=== PATIENT | female | born 1950 | race Caucasian/White ===

== ENCOUNTER → 2019-02-07 | Outpatient (CLI) | payer MEDICARE, BC ==
--- NOTE | 2019-02-07 15:47 | MR ---
EXAMINATION TYPE: MR lumbar spine wo con DATE OF EXAM: 02/07/2019 COMPARISON: None HISTORY: Low Back Pain with Sciatica TECHNIQUE: Multiplanar, multisequence images of the lumbar spine were acquired. L1-L2: Normal disc appearance without desiccation. No herniation, protrusion or disc bulging. No ca nal stenosis is present. Foramina are patent bilaterally. L2-L3: Broad-based posterior disc bulge causes mild anterior mass effect on the thecal sac. No signif icant central stenosis or foraminal encroachment. L3-L4: Posterior broad-based disc bulge causes anterior mass effect on the thecal sac. There is a lef t lateral disc herniation extending towards the left neural foramina. No significant central stenosis . There is some facet arthropathy with hypertrophy ligamentum flavum. L4-L5: Facet arthropathy with hypertrophy ligamentum flavum is noted causing some posterior lateral m ass effect on the thecal sac. Circumferential posterior broad-based disc bulge contacts anterior thec al sac, lateral extension endplate disc complex results in foraminal encroachment greater on the righ t. There is moderate central canal stenosis. L5-S1: Lateral extension of endplate disc complex results in bilateral foraminal encroachment. Steel Sampler ior broad-based disc bulge causes possible contact of the proximal S1 nerve roots. Facet arthropathy is noted greater on the right which likely contacts the right S1 nerve root. Lumbar segments are intact. No paraspinal masses are identified. Conus medullaris has a normal appe arance. There is a spinal curvature. Multilevel spondylosis is present. Loss of disc height and signa l present especially at L5-S1 but also at L3-4, L2-3 compatible with disc desiccation and degenerativ e disc disease, there is multilevel spondylosis. Endplate discogenic marrow signal changes greatest a t L5-S1. Lumbar vertebral bodies show preserved height. Atheromatous changes are present within the v isualized aorta, infrarenal abdominal aorta is aneurysmal measuring approximately 3.7 cm or greater i n its visualized portion. Cortical cyst associated with the left kidney measures approximately 18 mm. IMPRESSION: Abdominal aortic aneurysm, follow-up recommended. Degenerative disc disease and facet arthropathy. Sp inal curvature.
== END | disposition home or self-care (01) ==
LOC: RADMRIMAIN 13:33
PROVIDERS: ATTEND Orthopaedic Surgery
DX: M51.36 Other intervertebral disc degeneration, lumbar region (principal); M46.96 Unspecified inflammatory spondylopathy, lumbar region
CPT/HCPCS: 72148

== ENCOUNTER → 2019-04-24 | Outpatient (CLI) | payer MEDICARE, BC ==
[2019-04-24 17:25] LABS: Chol/HDL Ratio 4.28; LDL Cholesterol,Calculated 170.2 mg/dL (0.0-131.0); VLDL Calculation 19.8 mg/dL (5.00-40.00)
== END | disposition home or self-care (01) ==
LOC: LABWHC1 08:22
PROVIDERS: ATTEND Internal Medicine Cardiovascular Disease
DX: E78.2 Mixed hyperlipidemia (principal)
CPT/HCPCS: 36415; 80061; 84450; 84460

== ENCOUNTER → 2019-08-20 | Outpatient (CLI) | payer MEDICARE, BC ==
[2019-08-20 17:30] LABS: Chol/HDL Ratio 2.94; LDL Cholesterol,Calculated 83.4 mg/dL (0.0-131.0); VLDL Calculation 21.6 mg/dL (5.00-40.00)
== END | disposition home or self-care (01) ==
LOC: LABWHC1 10:25
PROVIDERS: ATTEND Internal Medicine Cardiovascular Disease
DX: E78.2 Mixed hyperlipidemia (principal)
CPT/HCPCS: 36415; 80061; 84450; 84460

== ENCOUNTER → 2020-01-24 | Outpatient (CLI) | payer MEDICARE, BC ==
[2020-01-24 14:01] LABS: HCT 37.8 % (34.0-46.0); HGB 11.9 gm/dL (11.4-16.0); MCH 29.2 pg (25.0-35.0); MCHC 31.4 g/dL (31.0-37.0); Mean Platelet Volume 7.2; Platelet Count 310 k/uL (150-450); RBC 4.06 m/uL (3.80-5.40); RDW 13.4 % (11.5-15.5)
[2020-01-24 15:10] LABS: Potassium 6.1 mmol/L (3.5-5.1)
== END | disposition home or self-care (01) ==
LOC: LABPAT 13:07
PROVIDERS: ATTEND Internal Medicine Interventional Cardiology
DX: Z01.818 Encounter for other preprocedural examination (principal); I73.9 Peripheral vascular disease, unspecified
CPT/HCPCS: 36415; 80051; 82565; 84520; 85027

== ENCOUNTER → 2020-01-30 | Outpatient (CLI) | payer MEDICARE, BC ==
[2020-01-30 18:01] LABS: African American GFR (CKD) 75.1 (60.0-200.0); Anion Gap 9.6 mmol/L (4.00-12.00); BUN/Creat Ratio 25.56 Ratio (12.00-20.00); Calcium 9.2 mg/dL (8.7-10.3); Carbon Dioxide 22.4 mmol/L (21.6-31.8); Magnesium 1.9 mg/dL (1.5-2.4); Non-African American GFR(CKD) 64.8 (60.0-200.0); Potassium 4.5 mmol/L (3.5-5.5)
== END | disposition home or self-care (01) ==
LOC: LABWHC1 10:19
PROVIDERS: ATTEND Nurse Practitioner Adult Health
DX: I10 Essential (primary) hypertension (principal); E87.5 Hyperkalemia
CPT/HCPCS: 36415; 80048; 83735

== ENCOUNTER 2020-03-18 06:18 | Day surgery (SDC) | payer MEDICARE, BC ==
[2020-03-16 12:04] VITALS: BMI 21.4
[2020-03-18] MEDS ORDERED: SODIUM CHLORIDE 0.9% 1,000 ML in EMPTY BAG 1 BAG IV ONE (06:27)
[2020-03-18] MEDS ORDERED: ASPIRIN 325 MG TAB PO STA (06:27)
[2020-03-18] MEDS: ALPRAZolam 0.25 MG TAB PO PRN ×2 (06:45→15:12)
[2020-03-18 07:27] LABS: Albumin 3.4 g/dL (3.5-5.0); Calcium 8.9 mg/dL (8.4-10.2); Potassium 4.3 mmol/L (3.5-5.1); Total Bilirubin 0.3 mg/dL (0.2-1.3); Total Protein 5.8 g/dL (6.3-8.2)
[2020-03-18] MEDS: MIDAZOLAM 2 MG/2 ML VIAL IV ONE ×4 (07:35→09:31)
[2020-03-18] MEDS: LIDOCAINE 1% INJ 10MG/ML (20 ML MDV) SQ ONE ×2 (07:48→08:26)
[2020-03-18] MEDS ORDERED: LIDOCAINE 1% INJ 10MG/ML (20 ML MDV) SQ ONE (08:26)
[2020-03-18] MEDS: FLUMAZENIL 0.1 MG/ML 5 ML VIAL IVP ONE ×2 (09:42→09:45)
[2020-03-18] MEDS: fentaNYL (PF) 50 MCG/ML 2 ML AMP IV ONE ×2 (09:56→10:18)
[2020-03-18] MEDS ORDERED: IOPAMIDOL-250 100ML BTL INTRAARTER ONE (10:13)
[2020-03-18] MEDS ORDERED: CLOPIDOGREL 75 MG TAB PO ONE (10:13)
[2020-03-18] MEDS ORDERED: SODIUM CHLORIDE 0.9% 1,000 ML in EMPTY BAG 1 BAG IV SCH (10:30)
--- NOTE | 2020-03-18 12:14 | AN ---
ANGIOGRAPHY REPORT PERCUTANEOUS PERIPHERAL INTERVENTION: DATE OF SERVICE: 03/18/2020 PERFORMING PHYSICIAN: Danie Bueno MD. PROCEDURE PERFORMED: 1. Successful kissing stents of the right and left common iliac arteries using 8 x 59 mm balloon expandable stent with an excellent angiographic results. 2. Intravascular ultrasound of the aorta and left common iliac artery as well as left external iliac artery as well as left common femoral artery. 3. Balloon angioplasty of the bilateral common iliac arteries as well as left external iliac artery. 4. An angiogram of the bilateral common and external iliac arteries as well as common femoral arteries. INDICATION: This is a 69-year-old female patient who was experiencing left leg intermittent claudication and underwent an angiogram at [facility] and that revealed occluded left common iliac artery. She was brought today to undergo an intervention. APPROACH: Right and left common femoral artery. COMPLICATION: None. LEVEL OF SEDATION: Moderate with sedation length of 151 minutes. PROCEDURE DESCRIPTION: After obtaining an informed consent, the patient was brought to the cardiac laboratory mechanical technician. The right and left groin were prepped and draped in the usual sterile fashion. Local analgesia was achieved by injecting 2% lidocaine subcutaneously into the left and right groin. Initially, I accessed the left common femoral artery using micropuncture technique under ultrasound guidance, the micropuncture wire passed easily, then I placed a 6- Cypriot 23 cm Brite Tip sheath at the level of the left common femoral artery. At that point, anticoagulation was initiated using heparin and the patient was given a weight-based heparin. Please note that continuous ACT monitoring was performed throughout the procedure and the patient was given additional 2000 of heparin at the end of the procedure. 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 I attempted using the [place] device to reenter the true lumen and that was also unsuccessful. Because of that, I decided to access the right common femoral artery. The right common femoral artery was cannulated using micropuncture technique and a micropuncture wire passed easily. Then I did a place initially a 5-Cypriot sheath and then a 6-Cypriot 23 cm Brite Tip sheath at the right common femoral arteries. I did at that point, an angiogram where I was able the takeoff of the occluded left common iliac artery from the aorta. 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 The wire was advanced all the way to the left SFA. I attempted snaring the wire from the sheath in the left groin, but that was unsuccessful and at that point, I anticipated that I was in the subintimal space. I confirmed that using intravascular ultrasound, IVUS, which proved that I was in the false lumen with 0.014 wire which entered the true lumen at the level of the common femoral artery on the left side. Because of that and because of multiple attempts failed to snare the wire, I decided to just try to wire the left common iliac artery in ipsilateral retrograde fashion and with that I was able to advance the wire all the way to the aorta. I did exchange my 0.035 stiff Glidewire into 0.014 wire just to perform intravascular ultrasound and prove that I was in the true lumen of the aorta and not in the false lumen. That was performed and confirmed that I was in the true lumen of the aorta. Subsequently, I did exchange my 0.014 wire again into 0.035 wire. This time using 0.035 CXI catheter. So I placed a stiff Glidewire with was a Super core wire at the left common iliac artery and I placed an 0.035 stiff Glidewire at the right common iliac artery. At that point, balloon angioplasty was performed using 6 x 40 mm balloon of the left common and left external iliac artery. Then after that, I deployed two stents in the both common iliac arteries. The two stents were placed in a kissing technique under fluoroscopic guidance and under contrast injection using DSA. On the left side, I placed 8 x 59 mm iCAST covered stent and on the right, I placed 8 x 59 mm just regular balloon expandable stents. Both stents were deployed under 10 atmospheres. The following angiogram showed excellent angiographic results at the level of the right and left common iliac arteries. At the level of the left external iliac artery, there was a dissection. I decided to balloon that. I did use 8 x 18 mm balloon which was inflated under 6 atmospheres for one minute. The following angiogram showed great results at the level of the left external iliac artery, but there was a dissection involving the distal BATTALION FIRE CHIEF in the left common iliac artery and I decided to cover that with a stent. So I deployed 8 x 27 mm another balloon expandable stent where the stent was positioned under fluoroscopy guidance and deployed under fluoroscopic guidance. I did balloon the overlap area between the 2 stents. The following angiogram showed great angiographic results and the procedure was completed without any complication. After that, I did place an 11 cm 7-Cypriot sheath on the left side and 11 cm 6-Cypriot sheath on the right side. The procedure at that point was completed without any complication. By the end, I was able to achieve a Doppler signal aid at the left pedal artery. The sheath of course was occupying the lumen of the left common femoral artery. POSTPROCEDURE MANAGEMENT: 1. Standard groin care. 2. Pull the sheath on the ACT below 180. 3. Dual anti-platelet therapy. 4. Risk factor modifications. 5. Follow up with the patient. MMODL / IJN: [id number] /
[2020-03-18 12:28] VITALS: RESP 18
[2020-03-18] MEDS ORDERED: ATROPINE SULFATE 0.1 MG/ML 10ML SYRINGE ONE (12:39)
[2020-03-18] MEDS ORDERED: HYDROmorphone 1 MG/ML 1 ML SYRINGE IVP PRN (16:05)
[2020-03-18] MEDS: HYDROmorphone 0.5 MG/0.5 ML SYRINGE IVP PRN (17:56)
--- NOTE | 2020-03-19 07:01 | DS ---
DISCHARGE SUMMARY ADMISSION DATE: March 18, 2020 DISCHARGE DATE: March 19, 2020 BRIEF HISTORY: This is a pleasant 69-year-old female patient who underwent yesterday successful recanalizing chronically occluded left iliac artery. The procedure was performed from both groins, right and left groins. Both groins are soft and nontender and without any bruises. The patient is going to be discharged home on dual anti-platelet therapy and she will follow up with Dr. Espino in the office as an outpatient. MMODL / IJN: [id number] /
[2020-03-19 07:28] LABS: Basophils % (A) 0 %; Eosinophils # (A) 0.2 k/uL (0-0.7); Eosinophils % (A) 2 %; HCT 30.7 % (34.0-46.0); Lymphocytes # (A) 2.4 k/uL (1.0-4.8); Lymphocytes % (A) 29 %; MCH 29.2 pg (25.0-35.0); MCHC 32.3 g/dL (31.0-37.0); MCV 90.4 fL (80.0-100.0); Mean Platelet Volume 7.2; Monocytes # (A) 0.7 k/uL (0-1.0); Monocytes % (A) 9 %; Neutrophils # (A) 4.7 k/uL (1.3-7.7); Neutrophils % (A) 58 %; Platelet Count 298 k/uL (150-450); RDW 13.9 % (11.5-15.5); WBC 8.2 k/uL (3.8-10.6)
[2020-03-19 07:41] LABS: HGB 9.9 gm/dL (11.4-16.0)
[2020-03-19 07:44] LABS: Calcium 8.4 mg/dL (8.4-10.2); Potassium 4.3 mmol/L (3.5-5.1)
[2020-03-19] MEDS ORDERED: amLODIPine 10 MG TAB PO SCH (09:00)
[2020-03-19] MEDS ORDERED: CLOPIDOGREL 75 MG TAB PO SCH (09:00)
[2020-03-19] MEDS ORDERED: ASPIRIN 81 MG PO SCH (09:00)
[2020-03-19] MEDS ORDERED: ATORVASTATIN 20 MG TAB PO SCH (09:00)
[2020-03-19] MEDS: HYDROmorphone 0.5 MG/0.5 ML SYRINGE IVP PRN (09:15)
--- NOTE | 2020-03-19 09:26 | IR ---
EXAMINATION TYPE: IR stent intravas non coronary DATE OF EXAM: 03/18/2020 CLINICAL HISTORY: Left iliac artery occlusion. TECHNIQUE: Fluoroscopy. COMPARISON: None. FINDINGS: Fluoroscopic guidance was provided during revascularization with insertion of iliac artery stent procedure performed by Dr. Bueno. A total of 48.3 minutes of fluoroscopic time was utilized du ring the procedure and 21 cine runs are acquired. Please refer to procedure note for further details as I was not present nor performed procedure. IMPRESSION: As Above.
[2020-03-19 10:34] VITALS: BP 136/74; PULSE 85; TEMP 98.3
== END 2020-03-19 13:10 | disposition home or self-care (01) ==
LOC: CATHCVL 06:18 → 3SCARD 10:46 → 3NCARDOBS 20:35 → 3SCARD 20:35 → CATHCVL 03-19 13:10
PROVIDERS: ATTEND Internal Medicine Interventional Cardiology
DX: I70.212 Atherosclerosis of native arteries of extremities with intermittent claudication, left leg (principal); I70.92 Chronic total occlusion of artery of the extremities; I10 Essential (primary) hypertension; E78.2 Mixed hyperlipidemia; Z82.49 Family history of ischemic heart disease and other diseases of the circulatory system; Z72.0 Tobacco use; I71.4 Abdominal aortic aneurysm, without rupture; Z79.82 Long term (current) use of aspirin; Z79.899 Other long term (current) drug therapy
CPT/HCPCS: 37221; 37222; 37252; 37253; 50433; 80053; 80048; 85025; C1773; C1769 ×7; C1894 ×3; C1874; C1725; C1753 ×2; C1876; J2250; J2001; J3010; J1644; J1170; Q9966

== ENCOUNTER → 2021-03-10 | Outpatient (CLI) | payer MEDICARE, BC ==
[2021-03-10 18:24] LABS: Chol/HDL Ratio 2.74; LDL Cholesterol,Calculated 74.2 mg/dL (0.0-131.0); VLDL Calculation 19.8 mg/dL (5.00-40.00)
== END | disposition home or self-care (01) ==
LOC: LABWHC1 09:10
PROVIDERS: ATTEND Internal Medicine Cardiovascular Disease
DX: E78.2 Mixed hyperlipidemia (principal)
CPT/HCPCS: 36415; 80061; 84450; 84460

== ENCOUNTER 2021-03-17 17:26 | Emergency (ER) | payer MEDICARE, BC ==
[2021-03-17 18:18] VITALS: BP 150/76; PULSE 70; RESP 18
--- NOTE | 2021-03-17 19:17 | ED ---
Upper Extremity HPI - General Chief Complaint: Extremity Injury, Upper Stated Complaint: hand injury Time Seen by Provider: 03/17/21 19:06 Source: patient, RN notes reviewed Mode of arrival: ambulatory Limitations: no limitations - History of Present Illness Initial Comments: Patient is a 70-year-old female presents to emergency room complaining of right third metacarpophalangeal joint pain. She notes she injured it while cleaning the pool filter. She notes that she has full range of motion that it is just tender and bruised. She denied any other issues or complaints at this time. She was well-appearing 70-year-old female in no apparent distress or pain. She denied any chest pain first breath headache nausea vomiting diarrhea constipation fever fatigue chills weakness numbness tingling in her right middle finger. - Related Data Home Medications Medication Instructions Recorded Confirmed Aspirin [Adult Low Dose Aspirin EC] 81 mg PO QAM 01/30/20 03/18/20 Simvastatin 40 mg PO DAILY 01/30/20 03/18/20 amLODIPine BESYLATE 10 mg PO DAILY 01/30/20 03/18/20 Previous Rx's Medication Instructions Recorded Clopidogrel [Plavix] 75 mg PO DAILY #90 tab 03/19/20 Allergies Allergy/AdvReac Type Severity Reaction Status Date / Time No Known Allergies Allergy Verified 03/17/21 18:18 Review of Systems ROS Statement: Those systems with pertinent positive or pertinent negative responses have been documented in the HPI. ROS Other: All systems not noted in ROS Statement are negative. Past Medical History Past Medical History: Chest Pain / Angina, Hyperlipidemia, Hypertension, Osteoarthritis (OA), Vascular Disorder Additional Past Medical History / Comment(s): has difficulty walking,aortic aneurysm,SOB,yesika leg swelling from knee down,ruptured disk,hemorrhage rt eye after cataract surgery History of Any Multi-Drug Resistant Organisms: None Reported Additional Past Surgical History / Comment(s): Aortogram,yesika cataracts,laser surgery rt eye hemorrhage post cataract surg. Past Anesthesia/Blood Transfusion Reactions: No Reported Reaction Past Psychological History: No Psychological Hx Reported Smoking Status: Former smoker Past Alcohol Use History: None Reported Past Drug Use History: None Reported - Past Family History Mother Family Medical History: No Reported History General Exam Limitations: no limitations General appearance: alert, in no apparent distress Head exam: Present: atraumatic, normocephalic, normal inspection Eye exam: Present: normal appearance, PERRL, EOMI. Absent: scleral icterus, conjunctival injection, periorbital swelling Neck exam: Present: normal inspection Respiratory exam: Present: normal lung sounds bilaterally. Absent: respiratory distress, wheezes, rales, rhonchi, stridor Cardiovascular Exam: Present: regular rate, normal rhythm, normal heart sounds. Absent: systolic murmur, diastolic murmur, rubs, gallop, clicks Extremities exam: Present: normal inspection, full ROM, normal capillary refill, other (Right third MCP ecchymosis and mild tenderness to palpation.). Absent: tenderness, pedal edema, joint swelling, calf tenderness Neurological exam: Present: alert, oriented X3 Psychiatric exam: Present: normal affect, normal mood Skin exam: Present: warm, dry, intact, normal color. Absent: rash Course Vital Signs 03/17/21 18:16 Pulse Rate 70 Respiratory 18 Rate Blood Pressure 150/76 O2 Sat by Pulse 99 Oximetry Medical Decision Making - Medical Decision Making 70-year-old female complaining of right middle finger first knuckle pain. X-ray of the right hand ordered. No acute fractures dislocations noted on imaging. Patient will be referred to orthopedics as needed. Case discussed with Dr. Gómez, patient discharge home. - Radiology Data Radiology results: report reviewed, image reviewed Interpreted by me: Image was reviewed by myself and Dr. Gómez and there appeared to be no fractures or dislocations noted. Disposition Clinical Impression: Finger sprain Disposition: HOME SELF-CARE Condition: Stable Instructions (If sedation given, give patient instructions): Hand Sprain (ED) Additional Instructions: Please return to the Emergency Department if symptoms worsen or any other concerns. Follow-up with primary care 1-2 days. Follow-up with orthopedics as needed. Rest ice compress elevate. Take Tylenol Motrin as needed for pain. Is patient prescribed a controlled substance at d/c from ED?: No Referrals: None,Stated [Primary Care Provider] - 1-2 days Solo Mackey DO [Doctor of Osteopathic Medicine] - 1-2 days Time of Disposition: 19:17
--- NOTE | 2021-03-17 20:07 | XR ---
EXAMINATION TYPE: XR hand complete RT DATE OF EXAM: 03/17/2021 COMPARISON: NONE HISTORY: . Injury to right hand . TECHNIQUE: AP, oblique, and lateral views of the right hand obtained. FINDINGS: No acute fracture. No dislocation. There are moderate to marked degenerative changes at the first carpometacarpal joint. Normal mineralization. No significant soft tissue swelling. IMPRESSION: No acute fracture or dislocation.
== END 2021-03-17 19:24 | disposition home or self-care (01) ==
LOC: EC 17:26
DX: S63.652A Sprain of metacarpophalangeal joint of right middle finger, initial encounter (principal); I10 Essential (primary) hypertension; I20.9 Angina pectoris, unspecified; E78.5 Hyperlipidemia, unspecified; M19.90 Unspecified osteoarthritis, unspecified site; Z79.899 Other long term (current) drug therapy; Z79.82 Long term (current) use of aspirin; Z87.891 Personal history of nicotine dependence; X50.0XXA Overexertion from strenuous movement or load, initial encounter; Y93.E5 Activity, floor mopping and cleaning
CPT/HCPCS: 99283

== ENCOUNTER 2021-05-20 18:22 | Emergency (ER) | payer MEDICARE, BC ==
[2021-05-20 18:29] VITALS: TEMP 98.5
--- NOTE | 2021-05-20 18:52 | XR ---
EXAMINATION TYPE: XR chest 1V portable DATE OF EXAM: 05/20/2021 HISTORY: Shortness of breath. COMPARISON: None. TECHNIQUE: Single view of the chest is submitted. FINDINGS: Demonstrated are scattered senescent parenchymal change. There is no evidence for focal infiltrate. The heart is stable. Hilar and mediastinal structures are within normal limits. Degenerative changes are seen of the dorsal spine. IMPRESSION: 1. Chronic changes without evidence for acute pulmonary disease.
--- NOTE | 2021-05-20 18:59 | ED ---
General Adult HPI - General Chief complaint: Shortness of Breath Stated complaint: Chest Pain/AUGUSTINE/Cough Time Seen by Provider: 05/20/21 18:32 Source: patient Mode of arrival: ambulatory Limitations: no limitations - History of Present Illness Initial comments: Dictation was produced using [employer] dictation software. please excuse any grammatical, word or spelling errors. Chief Complaint: 71-year-old female past medical history dyslipidemia hypertension peripheral vascular disease presents to the emergency department for additional dyspnea and chest pain History of Present Illness:. 71-year-old female was presents to the emergency department for multiple complaints. Patient states she has exertional dyspnea, pleuritic chest pain, weakness and body aches. Patient has been having symptoms for 2 weeks. She states she was tested twice for covid over the last 2 weeks and had negative result twice. Patient states that she has reported chest pain to the anterior chest. She states a sharp and worse with deep inspiration. She feels it more when she coughs. Denies any fever. No constitutional symptoms. No nausea vomiting or diarrhea. Patient not sure if she has history of DVT or PE. She does have history of arterial stents in her lower extremities. She denies any lower trauma symptoms currently. The ROS documented in this emergency department record has been reviewed and confirmed by me. Those systems with pertinent positive or negative responses have been documented in the HPI. All other systems are other negative and/or noncontributory. PHYSICAL EXAM: General Impression: Alert and oriented x3, not in acute distress HEENT: Normocephalic atraumatic, extra-ocular movements intact, pupils equal and reactive to light bilaterally, mucous membranes moist. Cardiovascular: Heart regular rate and rhythm Chest: Able to complete full sentences, no retractions, no tachypnea, clear to auscultation bilaterally Abdomen: abdomen soft, non-tender, non-distended, no organomegaly Musculoskeletal: Pulses present and equal in all extremities, no peripheral edema Motor: no focal deficits noted Neurological: CN II-XII grossly intact, no focal motor or sensory deficits noted Skin: Intact with no visualized rashes Psych: Normal affect and mood ED course: 71-year-old female presents to the emergency department for dyspnea and/or chest pain. As upon arrival shows 97% room air, worse vital signs within acceptable limits. To evaluation obtained per it CBC unremarkable. Metabolic panel is negative. D-dimer is 1.55. Metabolic panel shows findings within acceptable limits. Troponin is negative. Brain natruretic peptide is normal. Negative for coronavirus. Chest x-ray shows no acute processes. CT angios obtained for elevated d-dimer, rule out pulmonary embolism. No PEs noted on CT angios the chest. Patient observed in the emergency department for 2 hours. Physician options were discussed with patient. Patient is agreeable for discharge. She does not have a primary care physician. Patient given referral to outpatient PCP. Patient also given referral to tool die maker. Chin having persistent symptoms believe she would benefit from a trial of steroids and antibiotics. Given a dose of ceftriaxone and Decadron in the emergency department. Patient given prescription for Zithromax pack and Medrol Dosepak. EKG interpretation: Ventricular rate 86, normal sinus rhythm, DE interval 118, QRS 70, QTc 440. No DE prolongation, no QTC prolongation, no ST or T-wave changes noted. Overall, this EKG is unremarkable - Related Data Home Medications Medication Instructions Recorded Confirmed Aspirin [Adult Low Dose Aspirin EC] 81 mg PO QAM 01/30/20 05/20/21 Simvastatin 40 mg PO DAILY 01/30/20 05/20/21 amLODIPine BESYLATE 10 mg PO DAILY 01/30/20 05/20/21 Previous Rx's Medication Instructions Recorded Clopidogrel [Plavix] 75 mg PO DAILY #90 tab 03/19/20 Azithromycin [Zithromax Z-pack] 0 mg PO DIRECTED #6 tab 05/20/21 methylPREDNISolone [Medrol Dose 4 mg PO DIRECTED #1 packet 05/20/21 Pack] Allergies Allergy/AdvReac Type Severity Reaction Status Date / Time No Known Allergies Allergy Verified 05/20/21 19:57 Review of Systems ROS Statement: Those systems with pertinent positive or pertinent negative responses have been documented in the HPI. ROS Other: All systems not noted in ROS Statement are negative. Past Medical History Past Medical History: Chest Pain / Angina, Hyperlipidemia, Hypertension, Osteoarthritis (OA), Vascular Disorder Additional Past Medical History / Comment(s): has difficulty walking,aortic aneurysm,SOB,yesika leg swelling from knee down,ruptured disk,hemorrhage rt eye after cataract surgery History of Any Multi-Drug Resistant Organisms: None Reported Additional Past Surgical History / Comment(s): Aortogram,yesika cataracts,laser surgery rt eye hemorrhage post cataract surg. Past Anesthesia/Blood Transfusion Reactions: No Reported Reaction Past Psychological History: No Psychological Hx Reported Smoking Status: Former smoker Past Alcohol Use History: None Reported Past Drug Use History: None Reported - Past Family History Mother Family Medical History: No Reported History General Exam Limitations: no limitations Course Vital Signs 05/20/21 05/20/21 05/20/21 18:25 18:43 19:03 Temperature 98.5 F Pulse Rate 99 90 82 Respiratory 20 24 24 Rate Blood Pressure 151/65 144/78 O2 Sat by Pulse 93 L 97 97 Oximetry 05/20/21 19:34 Temperature Pulse Rate 74 Respiratory 22 Rate Blood Pressure 117/84 O2 Sat by Pulse 98 Oximetry Medical Decision Making - Lab Data Result diagrams: 05/20/21 19:03 05/20/21 19:03 Lab Results 05/20/21 05/20/21 05/20/21 Range/Units 19:03 19:03 19:03 WBC 8.5 (3.8-10.6) k/uL RBC 3.96 (3.80-5.40) m/uL Hgb 10.5 L (11.4-16.0) gm/dL Hct 33.1 L (34.0-46.0) % MCV 83.8 (80.0-100.0) fL MCH 26.7 (25.0-35.0) pg MCHC 31.8 (31.0-37.0) g/dL RDW 14.9 (11.5-15.5) % Plt Count 603 H (150-450) k/uL MPV 7.2 Neutrophils % 78 % Lymphocytes % 12 % Monocytes % 5 % Eosinophils % 4 % Basophils % 0 % Neutrophils # 6.6 (1.3-7.7) k/uL Lymphocytes # 1.0 (1.0-4.8) k/uL Monocytes # 0.4 (0-1.0) k/uL Eosinophils # 0.4 (0-0.7) k/uL Basophils # 0.0 (0-0.2) k/uL PT 10.0 (9.0-12.0) sec INR 0.9 (<1.2) APTT 19.9 L (22.0-30.0) sec D-Dimer 1.55 H (<0.60) mg/L FEU Sodium 135 L (137-145) mmol/L Potassium 3.3 L (3.5-5.1) mmol/L Chloride 103 (98-107) mmol/L Carbon Dioxide 22 (22-30) mmol/L Anion Gap 10 mmol/L BUN 15 (7-17) mg/dL Creatinine 0.78 (0.52-1.04) mg/dL Est GFR (CKD-EPI)AfAm 88 (>60 ml/min/1.73 sqM) Est GFR (CKD-EPI)NonAf 77 (>60 ml/min/1.73 sqM) Glucose 128 H (74-99) mg/dL Calcium 8.8 (8.4-10.2) mg/dL Magnesium 2.0 (1.6-2.3) mg/dL Troponin I (0.000-0.034) ng/mL NT-Pro-B Natriuret Pep pg/mL Coronavirus (PCR) (Not Detectd) 05/20/21 05/20/21 05/20/21 Range/Units 19:03 19:03 19:03 WBC (3.8-10.6) k/uL RBC (3.80-5.40) m/uL Hgb (11.4-16.0) gm/dL Hct (34.0-46.0) % MCV (80.0-100.0) fL MCH (25.0-35.0) pg MCHC (31.0-37.0) g/dL RDW (11.5-15.5) % Plt Count (150-450) k/uL MPV Neutrophils % % Lymphocytes % % Monocytes % % Eosinophils % % Basophils % % Neutrophils # (1.3-7.7) k/uL Lymphocytes # (1.0-4.8) k/uL Monocytes # (0-1.0) k/uL Eosinophils # (0-0.7) k/uL Basophils # (0-0.2) k/uL PT (9.0-12.0) sec INR (<1.2) APTT (22.0-30.0) sec D-Dimer (<0.60) mg/L FEU Sodium (137-145) mmol/L Potassium (3.5-5.1) mmol/L Chloride (98-107) mmol/L Carbon Dioxide (22-30) mmol/L Anion Gap mmol/L BUN (7-17) mg/dL Creatinine (0.52-1.04) mg/dL Est GFR (CKD-EPI)AfAm (>60 ml/min/1.73 sqM) Est GFR (CKD-EPI)NonAf (>60 ml/min/1.73 sqM) Glucose (74-99) mg/dL Calcium (8.4-10.2) mg/dL Magnesium (1.6-2.3) mg/dL Troponin I <0.012 (0.000-0.034) ng/mL NT-Pro-B Natriuret Pep 433 pg/mL Coronavirus (PCR) Not Detected (Not Detectd) Disposition Clinical Impression: Dyspnea Disposition: HOME SELF-CARE Condition: Good Instructions (If sedation given, give patient instructions): Dyspnea (ED) Prescriptions: methylPREDNISolone [Medrol Dose Pack] 4 mg PO DIRECTED #1 packet Azithromycin [Zithromax Z-pack] 0 mg PO DIRECTED #6 tab Is patient prescribed a controlled substance at d/c from ED?: No Referrals: Millicent Styles MD [STAFF PHYSICIAN] - 1-2 days Dennis Muro MD [REFERRING] - 1-2 days Aguila Loera MD [STAFF PHYSICIAN] - 1-2 days Sweta Díaz MD [STAFF PHYSICIAN] - 1-2 days
[2021-05-20 19:13] LABS: Basophils % (A) 0 %; Eosinophils # (A) 0.4 k/uL (0-0.7); Eosinophils % (A) 4 %; HCT 33.1 % (34.0-46.0); HGB 10.5 gm/dL (11.4-16.0); Lymphocytes % (A) 12 %; MCH 26.7 pg (25.0-35.0); MCHC 31.8 g/dL (31.0-37.0); MCV 83.8 fL (80.0-100.0); Mean Platelet Volume 7.2; Monocytes # (A) 0.4 k/uL (0-1.0); Monocytes % (A) 5 %; Neutrophils # (A) 6.6 k/uL (1.3-7.7); Neutrophils % (A) 78 %; Platelet Count 603 k/uL (150-450); RBC 3.96 m/uL (3.80-5.40); RDW 14.9 % (11.5-15.5); WBC 8.5 k/uL (3.8-10.6)
[2021-05-20 19:24] LABS: Calcium 8.8 mg/dL (8.4-10.2); Potassium 3.3 mmol/L (3.5-5.1)
[2021-05-20 19:35] VITALS: BP 117/84; PULSE 74; RESP 22
[2021-05-20 19:36] LABS: INR 0.9 (<1.2)
[2021-05-20 19:39] LABS: Partial Thromboplastin Time 19.9 sec (22.0-30.0)
--- NOTE | 2021-05-20 20:19 | CT ---
EXAMINATION TYPE: CT angio chest DATE OF EXAM: 05/20/2021 COMPARISON: None HISTORY: Cough, shortness of breath, elevated d-dimer. CT DLP: 198.1 mGycm CONTRAST: CT chest with contrast and 3D reconstruction with MIP imaging is performed with IV Contrast, patient injected with 100 mL of Isovue 370. Contrast-enhanced CT of the chest was performed through the course of the pulmonary arteries with brent g and mediastinal window settings submitted. 3D reconstruction with MIP imaging was also performed. PULMONARY ARTERIES: The pulmonary arteries and their major tributaries are patent. I do not see azra dence for sizable filling defect to suggest pulmonary embolic process. LUNGS: Patchy density right lower lobe may reflect infiltrate or atelectasis. No evidence for atelect asis. No pulmonary nodule or mass is detected. No pleural effusion. MEDIASTINUM: Thoracic aorta is of normal caliber. The heart is not enlarged. No evidence for medias tinal mass. No mediastinal lymph nodes greater than 1cm. Small cystic nodule left thyroid lobe measu ring less than 1 cm. HILAR STRUCTURES: No evidence for mass. No hilar lymph nodes greater than 1 cm. UPPER ABDOMEN: No significant abnormality is seen. IMPRESSION: 1. No evidence for Pulmonary embolism at this time.
[2021-05-20] MEDS ORDERED: DEXAMETHASONE SOD PHOSPHATE 10 MG/ML 1 ML VIAL IV STA (20:30)
[2021-05-20] MEDS ORDERED: cefTRIAXone IN SWFI 1,000 MG/10 ML SYRINGE IVP STA (20:30)
== END 2021-05-20 21:05 | disposition home or self-care (01) ==
LOC: EC 18:22
DX: R07.81 Pleurodynia (principal); R06.02 Shortness of breath; R05 Cough; R53.1 Weakness; E78.5 Hyperlipidemia, unspecified; I10 Essential (primary) hypertension; M19.90 Unspecified osteoarthritis, unspecified site; Z79.899 Other long term (current) drug therapy; Z79.82 Long term (current) use of aspirin; Z87.891 Personal history of nicotine dependence; Z20.822 Contact with and (suspected) exposure to COVID-19
CPT/HCPCS: 36415; 93005; 85379; 83880; 80048; 83735; 84484; 85025; 85610; 85730; 87635; 71045; 71275; 99285; 96374; 96375; J1100; J0696; Q9967

== ENCOUNTER 2022-03-14 12:56 | Inpatient (IN) | payer MEDICARE, BC ==
--- NOTE | 2022-03-14 15:23 | ED ---
General Adult HPI - General Chief complaint: Recheck/Abnormal Lab/Rx Stated complaint: blood transfusion Time Seen by Provider: 03/14/22 15:05 Source: patient, RN notes reviewed, old records reviewed Mode of arrival: ambulatory - History of Present Illness Initial comments: This is a 71-year-old female presents emergency Department because her hemoglobin is low. Patient states she was seen in Dr. Espino for a blockage in her heart and she is supposed to get a catheterization on Monday. Patient states she's on Plavix and aspirin at home. Patient states Dr. Greer did some bl ood work today and her hemoglobin was 7 so he sent her in to be evaluated. Patient states lately she's been somewhat short of breath noticed more swelling in her legs and has been fatigued. Patient denies any fever chills. Patient denies any history of anemia patient denies any liver problems patient denies any kidney dysfunction. - Related Data Home Medications Medication Instructions Recorded Confirmed Aspirin [Adult Low Dose Aspirin EC] 81 mg PO DAILY 01/30/20 03/14/22 Simvastatin 40 mg PO HS 01/30/20 03/14/22 amLODIPine BESYLATE 10 mg PO DAILY 01/30/20 03/14/22 Isosorbide Mononitrate ER [Imdur] 30 mg PO DAILY 03/14/22 03/14/22 Metoprolol Succinate (ER) [Toprol 50 mg PO DAILY 03/14/22 03/14/22 Xl] Previous Rx's Medication Instructions Recorded Clopidogrel [Plavix] 75 mg PO DAILY #90 tab 03/19/20 Allergies Allergy/AdvReac Type Severity Reaction Status Date / Time No Known Allergies Allergy Verified 03/14/22 16:59 Review of Systems ROS Statement: Those systems with pertinent positive or pertinent negative responses have been documented in the HPI. ROS Other: All systems not noted in ROS Statement are negative. Past Medical History Past Medical History: Chest Pain / Angina, Hyperlipidemia, Hypertension, Osteoarthritis (OA), Vascular Disorder Additional Past Medical History / Comment(s): has difficulty walking,aortic aneu rysm,SOB,yesika leg swelling from knee down,ruptured disk,hemorrhage rt eye after cataract surgery History of Any Multi-Drug Resistant Organisms: None Reported Additional Past Surgical History / Comment(s): Aortogram,yesika cataracts,laser surgery rt eye hemorrhage post cataract surg. Past Anesthesia/Blood Transfusion Reactions: No Reported Reaction Past Psychological History: No Psychological Hx Reported Smoking Status: Former smoker Past Alcohol Use History: None Reported Past Drug Use History: None Reported - Past Family History Mother Family Medical History: No Reported History General Exam - General Exam Comments Initial Comments: GENERAL: Patient is well-developed and well-nourished. Patient is nontoxic and well- hydrated and is in no acute distress. ENT: Neck is soft and supple. No significant lymphadenopathy is noted. Oropharynx is clear. Moist mucous membranes. Neck has full range of motion without eliciting any pain. EYES: The sclera were anicteric and conjunctiva were pink and moist. Extraocular movements were intact and pupils were equal round and reactive to light. Eyel ids were unremarkable. PULMONARY: Unlabored respirations. Good breath sounds bilaterally. No audible rales rhonchi or wheezing was noted. CARDIOVASCULAR: There is a regular rate and rhythm without any murmurs gallops or rubs. ABDOMEN: Soft and nontender with normal bowel sounds. SKIN: Slightly pale NEUROLOGIC: Patient is alert and oriented x3. Cranial nerves II through XII are grossly i ntact. Motor and sensory are also intact. Normal speech, volume and content. Symmetrical smile. MUSCULOSKELETAL: Normal extremities with adequate strength and full range of motion. Bilateral edema LYMPHATICS: No significant lymphadenopathy is noted PSYCHIATRIC: Normal psychiatric evaluation. Course Vital Signs 03/14/22 03/14/22 13:03 16:58 Temperature 98.0 F Pulse Rate 85 83 Respiratory 18 16 Rate Blood Pressure 160/87 158/87 O2 Sat by Pulse 96 96 Oximetry Medical Decision Making - Medical Decision Making EKG shows sinus rhythm at 74 bpm SC interval 149 QRSs 80 QT interval 09/27/1969 QTC is 405. Patient's EKG shows no ST segment elevation or depression. Dr. Espino wanted the patient admitted and evaluated for the anemia so that he could carry out a cardiac catheterization in the near future. I would sound physician's and he agreed to admit the patient admitted the patient wrote admitting orders - Lab Data Result diagrams: 03/14/22 15:25 03/14/22 15:25 Lab Results 03/14/22 03/14/22 03/14/22 Range/Units 15:25 15:25 15:25 WBC 6.5 (3.8-10.6) k/uL RBC 3.20 L (3.80-5.40) m/uL Hgb 7.9 L (11.4-16.0) gm/dL Hct 25.9 L (34.0-46.0) % MCV 80.9 (80.0-100.0) fL MCH 24.6 L (25.0-35.0) pg MCHC 30.4 L (31.0-37.0) g/dL RDW 19.2 H (11.5-15.5) % Plt Count 560 H (150-450) k/uL MPV 7.0 Neutrophils % 55 % Lymphocytes % 28 % Monocytes % 7 % Eosinophils % 8 % Basophils % 1 % Neutrophils # 3.5 (1.3-7.7) k/uL Lymphocytes # 1.8 (1.0-4.8) k/uL Monocytes # 0.4 (0-1.0) k/uL Eosinophils # 0.5 (0-0.7) k/uL Basophils # 0.0 (0-0.2) k/uL Hypochromasia Marked Anisocytosis Slight Microcytosis Slight PT 10.0 (9.0-12.0) sec INR 0.9 (<1.2) APTT 21.3 L (22.0-30.0) sec Sodium 135 L (137-145) mmol/L Potassium 4.1 (3.5-5.1) mmol/L Chloride 106 (98-107) mmol/L Carbon Dioxide 21 L (22-30) mmol/L Anion Gap 8 mmol/L BUN 9 (7-17) mg/dL Creatinine 1.04 (0.52-1.04) mg/dL Est GFR (CKD-EPI)AfAm 62 (>60 ml/min/1.73 sqM) Est GFR (CKD-EPI)NonAf 54 (>60 ml/min/1.73 sqM) Glucose 97 (74-99) mg/dL Calcium 8.5 (8.4-10.2) mg/dL Magnesium 1.9 (1.6-2.3) mg/dL Total Bilirubin 0.2 (0.2-1.3) mg/dL AST 37 H (14-36) U/L ALT 20 (4-34) U/L Alkaline Phosphatase 86 (38-126) U/L Troponin I (0.000-0.034) ng/mL Total Protein 5.2 L (6.3-8.2) g/dL Albumin 2.8 L (3.5-5.0) g/dL Stool Occult Blood (Negative) Blood Type Blood Type Confirm Blood Type Recheck Bld Type Recheck Status Antibody Screen Spec Expiration Date 03/14/22 03/14/22 03/14/22 Range/Units 15:25 15:25 15:25 WBC (3.8-10.6) k/uL RBC (3.80-5.40) m/uL Hgb (11.4-16.0) gm/dL Hct (34.0-46.0) % MCV (80.0-100.0) fL MCH (25.0-35.0) pg MCHC (31.0-37.0) g/dL RDW (11.5-15.5) % Plt Count (150-450) k/uL MPV Neutrophils % % Lymphocytes % % Monocytes % % Eosinophils % % Basophils % % Neutrophils # (1.3-7.7) k/uL Lymphocytes # (1.0-4.8) k/uL Monocytes # (0-1.0) k/uL Eosinophils # (0-0.7) k/uL Basophils # (0-0.2) k/uL Hypochromasia Anisocytosis Microcytosis PT (9.0-12.0) sec INR (<1.2) APTT (22.0-30.0) sec Sodium (137-145) mmol/L Potassium (3.5-5.1) mmol/L Chloride (98-107) mmol/L Carbon Dioxide (22-30) mmol/L Anion Gap mmol/L BUN (7-17) mg/dL Creatinine (0.52-1.04) mg/dL Est GFR (CKD-EPI)AfAm (>60 ml/min/1.73 sqM) Est GFR (CKD-EPI)NonAf (>60 ml/min/1.73 sqM) Glucose (74-99) mg/dL Calcium (8.4-10.2) mg/dL Magnesium (1.6-2.3) mg/dL Total Bilirubin (0.2-1.3) mg/dL AST (14-36) U/L ALT (4-34) U/L Alkaline Phosphatase (38-126) U/L Troponin I <0.012 (0.000-0.034) ng/mL Total Protein (6.3-8.2) g/dL Albumin (3.5-5.0) g/dL Stool Occult Blood NEG (Negative) Blood Type B Positive Blood Type Confirm Blood Type Recheck No Previous Record Bld Type Recheck Status CABO Indicated Antibody Screen NEGATIVE Spec Expiration Date 03/17/2022 - 232403/14/22 Range/Units 15:25 WBC (3.8-10.6) k/uL RBC (3.80-5.40) m/uL Hgb (11.4-16.0) gm/dL Hct (34.0-46.0) % MCV (80.0-100.0) fL MCH (25.0-35.0) pg MCHC (31.0-37.0) g/dL RDW (11.5-15.5) % Plt Count (150-450) k/uL MPV Neutrophils % % Lymphocytes % % Monocytes % % Eosinophils % % Basophils % % Neutrophils # (1.3-7.7) k/uL Lymphocytes # (1.0-4.8) k/uL Monocytes # (0-1.0) k/uL Eosinophils # (0-0.7) k/uL Basophils # (0-0.2) k/uL Hypochromasia Anisocytosis Microcytosis PT (9.0-12.0) sec INR (<1.2) APTT (22.0-30.0) sec Sodium (137-145) mmol/L Potassium (3.5-5.1) mmol/L Chloride (98-107) mmol/L Carbon Dioxide (22-30) mmol/L Anion Gap mmol/L BUN (7-17) mg/dL Creatinine (0.52-1.04) mg/dL Est GFR (CKD-EPI)AfAm (>60 ml/min/1.73 sqM) Est GFR (CKD-EPI)NonAf (>60 ml/min/1.73 sqM) Glucose (74-99) mg/dL Calcium (8.4-10.2) mg/dL Magnesium (1.6-2.3) mg/dL Total Bilirubin (0.2-1.3) mg/dL AST (14-36) U/L ALT (4-34) U/L Alkaline Phosphatase (38-126) U/L Troponin I (0.000-0.034) ng/mL Total Protein (6.3-8.2) g/dL Albumin (3.5-5.0) g/dL Stool Occult Blood (Negative) Blood Type Blood Type Confirm B Positive Blood Type Recheck Bld Type Recheck Status Antibody Screen Spec Expiration Date Disposition Clinical Impression: Anemia, Fatigue Disposition: ADMITTED IP TO THIS HOSP Referrals: None,Stated [Primary Care Provider] - 1-2 days Time of Disposition: 17:27
[2022-03-14 15:42] LABS: Anisocytosis Slight; Basophils % (A) 1 %; Eosinophils # (A) 0.5 k/uL (0-0.7); Eosinophils % (A) 8 %; HCT 25.9 % (34.0-46.0); HGB 7.9 gm/dL (11.4-16.0); Hypochromasia Marked; Lymphocytes # (A) 1.8 k/uL (1.0-4.8); Lymphocytes % (A) 28 %; MCH 24.6 pg (25.0-35.0); MCHC 30.4 g/dL (31.0-37.0); MCV 80.9 fL (80.0-100.0); Microcytosis Slight; Monocytes # (A) 0.4 k/uL (0-1.0); Monocytes % (A) 7 %; Neutrophils # (A) 3.5 k/uL (1.3-7.7); Neutrophils % (A) 55 %; Platelet Count 560 k/uL (150-450); RDW 19.2 % (11.5-15.5); WBC 6.5 k/uL (3.8-10.6)
[2022-03-14 15:52] LABS: Albumin 2.8 g/dL (3.5-5.0); Calcium 8.5 mg/dL (8.4-10.2); Magnesium 1.9 mg/dL (1.6-2.3); Potassium 4.1 mmol/L (3.5-5.1); Total Bilirubin 0.2 mg/dL (0.2-1.3); Total Protein 5.2 g/dL (6.3-8.2)
[2022-03-14 16:27] LABS: INR 0.9 (<1.2)
[2022-03-14 16:43] LABS: Partial Thromboplastin Time 21.3 sec (22.0-30.0)
[2022-03-14] MEDS ORDERED: SODIUM CHLORIDE 0.9% 1,000 ML IV ONE (17:34)
[2022-03-14] MEDS ORDERED: NALOXONE 0.4 MG/ML 1 ML VIAL IV PRN (18:28)
--- NOTE | 2022-03-14 18:28 | P.HPIM ---
History of Present Illness H&P Date: 03/14/22 Chief Complaint: anemia 71-year-old female with history of peripheral vascular disease status post stenting in the left leg, aortic aneurysm, presents emergency Department because her hemoglobin is low. Patient states she was seen in Dr. Espino for positive stress test that was done outpatient due to sob and she is supposed to get a catheterization on Monday. Patient states she's on Plavix and aspirin at home. Patient states Dr. Greer did some blood work today and her hemoglobin was 7 so he sent her in to be evaluated. She has been having progressively worsening dory rtness of breath and bilateral leg swelling over the past several months. He denied having dizziness. She feels weak. No nausea or vomiting. No hematochezia or melena, or hematemesis. No recent illness. Patient denies any fever chills. Evaluation in the emergency department revealed WBC 6.5, hemoglobin 10.9, hematocrit 25, platelet count 560, sodium 135, potassium 4.1, chloride 106, bicarbonate 21, BUN 9, creatinine 1. Rest of labs okay. EKG normal sinus rhythm without acute ischemic changes. Review of Systems Complete review of system performed, pertinent positives per HPI, otherwise negative Past Medical History Past Medical History: Chest Pain / Angina, Hyperlipidemia, Hypertension, Osteoarthritis (OA), Vascular Disorder Additional Past Medical History / Comment(s): has difficulty walking,aortic aneurysm,SOB,yesika leg swelling from knee down,ruptured disk,hemorrhage rt eye after cataract surgery History of Any Multi-Drug Resistant Organisms: None Reported Additional Past Surgical History / Comment(s): Aortogram,yesika cataracts,laser surgery rt eye hemorrhage post cataract surg. Past Anesthesia/Blood Transfusion Reactions: No Reported Reaction Past Psychological History: No Psychological Hx Reported Smoking Status: Former smoker Past Alcohol Use History: None Reported Past Drug Use History: None Reported - Past Family History Mother Family Medical History: No Reported History Medications and Allergies Home Medications Medication Instructions Recorded Confirmed Type Aspirin [Adult Low Dose Aspirin EC] 81 mg PO DAILY 01/30/20 03/14/22 History Simvastatin 40 mg PO HS 01/30/20 03/14/22 History amLODIPine BESYLATE 10 mg PO DAILY 01/30/20 03/14/22 History Clopidogrel [Plavix] 75 mg PO DAILY #90 tab 03/19/20 03/14/22 Rx Isosorbide Mononitrate ER [Imdur] 30 mg PO DAILY 03/14/22 03/14/22 History Metoprolol Succinate (ER) [Toprol 50 mg PO DAILY 03/14/22 03/14/22 History Xl] Allergies Allergy/AdvReac Type Severity Reaction Status Date / Time No Known Allergies Allergy Verified 03/14/22 16:59 Physical Exam Vitals: Vital Signs Temp Pulse Resp BP Pulse Ox 03/14/22 16:58 83 16 158/87 96 03/14/22 13:03 98.0 F 85 18 160/87 96 Intake and Output 03/14/22 03/14/22 03/14/22 06:59 14:59 22:59 Other: Weight 55.792 kg Constitutional: No acute distress, conversant, pleasant Eyes:Anicteric sclerae, moist conjunctiva, no lid-lag, PERRLA, ENMT: Oropharynx clear, no erythema, exudates Neck: Supple, FROM, no masses, or JVD, No carotid bruits, No thyromegaly Lungs: Clear to auscultation, Clear to percussion, Normal respiratory effort, no accessory muscle use Cardiovascular: Heart regular in rate and rhythm, No murmurs, gallops, or rubs, 2+ peripheral edema Abdominal: Soft, Nontender, no guarding, rebound or rigidity, Normoactive bowel sounds, No hepatomegaly, No splenomegaly, No palpable mass Skin: Normal temperature, tone, texture, turgor, no induration, No subcutaneous nodules, No rash, lesions, No ulcers Extremities: No digital cyanosis, No clubbing, Pedal pulses intact and symmetrical, Radial pulses intact and symmetrical, No calf tenderness Psychiatric: Alert and oriented to person, place and time, appropriate affect, i ntact judgement Neuro: Muscles Strength 5/5 in all 4 extremities, Sensation to light touch grossly present throughout, Cranial nerves II-XII grossly intact, no focal sensory deficits Results CBC & Chem 7: 03/14/22 15:25 03/14/22 15:25 Labs: Abnormal Lab Results - Last 24 Hours (Table) 03/14/22 03/14/22 03/14/22 Range/Units 15:25 15:25 15:25 RBC 3.20 L (3.80-5.40) m/uL Hgb 7.9 L (11.4-16.0) gm/dL Hct 25.9 L (34.0-46.0) % MCH 24.6 L (25.0-35.0) pg MCHC 30.4 L (31.0-37.0) g/dL RDW 19.2 H (11.5-15.5) % Plt Count 560 H (150-450) k/uL APTT 21.3 L (22.0-30.0) sec Sodium 135 L (137-145) mmol/L Carbon Dioxide 21 L (22-30) mmol/L AST 37 H (14-36) U/L Total Protein 5.2 L (6.3-8.2) g/dL Albumin 2.8 L (3.5-5.0) g/dL Assessment and Plan Plan: Chronic anemia, normocytic Negative fecal occult blood tests done in the emergency department Hold aspirin and plavix for now Check iron profile, LDH, ferritin, vitamin B12, RBC folate Check hemoglobin in a.m. Consult hematology Positive stress test Consult cardiology Chronic History of peripheral vascular disease History of aortic aneurysm Hyperlipidemia, Hypertension, Osteoarthritis (OA) All stable resume meds Admit to inpatient, expected length of stay more than 2 midnights.
[2022-03-14 21:31] LABS: Anisocytosis Slight; Basophils % (A) 1 %; Eosinophils # (A) 0.3 k/uL (0-0.7); Eosinophils % (A) 5 %; HCT 23.6 % (34.0-46.0); HGB 7.1 gm/dL (11.4-16.0); Hypochromasia Marked; Lymphocytes # (A) 1.2 k/uL (1.0-4.8); Lymphocytes % (A) 22 %; MCH 24.5 pg (25.0-35.0); MCHC 29.9 g/dL (31.0-37.0); MCV 82.1 fL (80.0-100.0); Mean Platelet Volume 6.6; Microcytosis Slight; Monocytes # (A) 0.4 k/uL (0-1.0); Monocytes % (A) 7 %; Neutrophils # (A) 3.5 k/uL (1.3-7.7); Neutrophils % (A) 63 %; Platelet Count 483 k/uL (150-450); RBC 2.88 m/uL (3.80-5.40); RDW 19.4 % (11.5-15.5); WBC 5.5 k/uL (3.8-10.6)
[2022-03-14] MEDS: ATORVASTATIN 20 MG TAB PO SCH (22:19)
[2022-03-15 06:54] LABS: Anisocytosis Slight; Basophils % (A) 1 %; Eosinophils # (A) 0.5 k/uL (0-0.7); Eosinophils % (A) 11 %; HCT 24.5 % (34.0-46.0); HGB 7.2 gm/dL (11.4-16.0); Hypochromasia Marked; Lymphocytes # (A) 1.4 k/uL (1.0-4.8); Lymphocytes % (A) 31 %; MCH 24.3 pg (25.0-35.0); MCHC 29.6 g/dL (31.0-37.0); MCV 82.2 fL (80.0-100.0); Mean Platelet Volume 6.9; Microcytosis Slight; Monocytes # (A) 0.3 k/uL (0-1.0); Monocytes % (A) 7 %; Neutrophils # (A) 2.1 k/uL (1.3-7.7); Neutrophils % (A) 48 %; Platelet Count 474 k/uL (150-450); RBC 2.98 m/uL (3.80-5.40); RDW 19.4 % (11.5-15.5); Reticulocyte % 2.1 % (0.5-2.0); WBC 4.3 k/uL (3.8-10.6)
[2022-03-15 07:02] LABS: ALT 17 U/L (4-34); AST 28 U/L (14-36); African American GFR (CKD) 70 (>60 ml/min/1.73 sqM); Albumin 2.4 g/dL (3.5-5.0); Albumin/Globulin Ratio 1.1; Alkaline Phosphatase 83 U/L (38-126); Anion Gap 3 mmol/L; Blood Urea Nitrogen 9 mg/dL (7-17); Carbon Dioxide 24 mmol/L (22-30); Chloride 110 mmol/L (98-107); Globulin 2.1 g/dL; Glucose 82 mg/dL (74-99); LDH 553 U/L (313-618); Non-African American GFR(CKD) 60 (>60 ml/min/1.73 sqM); Phosphorus 3.8 mg/dL (2.5-4.5); Potassium 4.1 mmol/L (3.5-5.1); Sodium 137 mmol/L (137-145); Total Bilirubin <0.1 mg/dL (0.2-1.3); Total Protein 4.5 g/dL (6.3-8.2)
[2022-03-15] MEDS: METOPROLOL SUCCINATE (ER) 50 MG TAB.ER.24H PO SCH (07:33)
[2022-03-15] MEDS: ISOSORBIDE MONONITRATE ER 30 MG TAB.ER.24H PO SCH (07:33)
[2022-03-15] MEDS: amLODIPine 10 MG TAB PO SCH (07:34)
[2022-03-15 10:56] LABS: % Iron Saturation 7.24 (12.00-45.00); Ferritin 9.3 ng/mL (10.0-291.0); Iron 23 ug/dL (50-170); Total Iron Binding Capacity 316 ug/dL (228-460)
--- NOTE | 2022-03-15 15:05 | P.PN ---
Subjective Progress Note Date: 03/15/22 Principal diagnosis: sob Still with sob maddie with ambulation. No chest pain. No fevers. Objective - Vital Signs Vital signs: Vital Signs Temp 98.3 F 03/15/22 08:00 Pulse 81 03/15/22 08:00 Resp 18 03/15/22 08:00 BP 166/76 03/15/22 08:00 Pulse Ox 93 L 03/15/22 08:00 FiO2 Intake & Output 03/14/22 03/15/22 03/15/22 18:59 06:59 18:59 Intake Total 296 Balance 296 Weight 55.792 kg Intake: Oral 296 Other: # Voids 2 - Exam Constitutional: No acute distress, conversant, pleasant Eyes:Anicteric sclerae, moist conjunctiva, no lid-lag, PERRLA, ENMT: Oropharynx clear, no erythema, exudates Neck: Supple, FROM, no masses, or JVD, No carotid bruits, No thyromegaly Lungs: Clear to auscultation, Clear to percussion, Normal respiratory effort, no accessory muscle use Cardiovascular: Heart regular in rate and rhythm, No murmurs, gallops, or rubs, No peripheral edema Abdominal: Soft, Nontender, no guarding, rebound or rigidity, Normoactive bowel sounds, No hepatomegaly, No splenomegaly, No palpable mass Skin: Normal temperature, tone, texture, turgor, no induration, No subcutaneous nodules, No rash, lesions, No ulcers Extremities: No digital cyanosis, No clubbing, Pedal pulses intact and symmetrical, Radial pulses intact and symmetrical, No calf tenderness Psychiatric: Alert and oriented to person, place and time, appropriate affect, intact judgement Neuro: Muscles Strength 5/5 in all 4 extremities, Sensation to light touch grossly present throughout, Cranial nerves II-XII grossly intact, no focal sensory deficits - Labs CBC & Chem 7: 03/15/22 06:30 03/15/22 06:30 Labs: Abnormal Lab Results - Last 24 Hours (Table) 03/14/22 03/14/22 03/14/22 Range/Units 15:25 15:25 15:25 RBC 3.20 L (3.80-5.40) m/uL Hgb 7.9 L (11.4-16.0) gm/dL Hct 25.9 L (34.0-46.0) % MCH 24.6 L (25.0-35.0) pg MCHC 30.4 L (31.0-37.0) g/dL RDW 19.2 H (11.5-15.5) % Plt Count 560 H (150-450) k/uL Retic Count (0.5-2.0) % APTT 21.3 L (22.0-30.0) sec Sodium 135 L (137-145) mmol/L Chloride (98-107) mmol/L Carbon Dioxide 21 L (22-30) mmol/L Calcium (8.4-10.2) mg/dL Iron (50-170) ug/dL % Saturation (12.00-45.00) Ferritin (10.0-291.0) ng/mL Total Bilirubin (0.2-1.3) mg/dL AST 37 H (14-36) U/L Total Protein 5.2 L (6.3-8.2) g/dL Albumin 2.8 L (3.5-5.0) g/dL 03/14/22 03/15/22 03/15/22 Range/Units 21:10 06:30 06:30 RBC 2.88 L 2.98 L (3.80-5.40) m/uL Hgb 7.1 L 7.2 L (11.4-16.0) gm/dL Hct 23.6 L 24.5 L (34.0-46.0) % MCH 24.5 L 24.3 L (25.0-35.0) pg MCHC 29.9 L 29.6 L (31.0-37.0) g/dL RDW 19.4 H 19.4 H (11.5-15.5) % Plt Count 483 H 474 H (150-450) k/uL Retic Count 2.1 H (0.5-2.0) % APTT (22.0-30.0) sec Sodium (137-145) mmol/L Chloride 110 H (98-107) mmol/L Carbon Dioxide (22-30) mmol/L Calcium 8.0 L (8.4-10.2) mg/dL Iron 23 L (50-170) ug/dL % Saturation 7.24 L (12.00-45.00) Ferritin 9.3 L (10.0-291.0) ng/mL Total Bilirubin <0.1 L (0.2-1.3) mg/dL AST (14-36) U/L Total Protein 4.5 L (6.3-8.2) g/dL Albumin 2.4 L (3.5-5.0) g/dL Assessment and Plan Plan: Chronic anemia, normocytic Negative fecal occult blood tests done in the emergency department Hold aspirin and plavix for now Iron profile consistent with deficiency. Will consult GI. Replace iron with iv route, d/c on oral iron. vitamin B12, on the low end of normal, will start replacement, RBC folate Check hemoglobin in a.m. Consult hematology pending Positive stress test Cardiology to evaluate Sob Could be due to anemia vs. CAD/heart disease Management as above. Chronic History of peripheral vascular disease History of aortic aneurysm Hyperlipidemia, Hypertension, Osteoarthritis (OA) All stable resume meds
[2022-03-15] MEDS: CYANOCOBALAMIN 500 MCG TAB PO SCH (15:52)
[2022-03-15] MEDS: SODIUM FERRIC GLUCONAT-SUCROSE 125 MG in SODIUM CHLORIDE 0.9% 100 ML IVPB SCH (15:52)
[2022-03-15 16:15] LABS: Protein, Total 3.9 g/dL (6.2-8.2)
--- NOTE | 2022-03-15 18:21 | P.CONS ---
History of Present Illness - Reason for Consult Consult date: 03/15/22 anemia Requesting physician: Héctor Hale - Chief Complaint abn lab, work up prior to cardiac cath - History of Present Illness Patient is a very pleasant 71-year-old female we have been asked to see in regards to anemia. She has a long history of cardiovascular disease including hypertension, PVD, arterial stent in the lower extremity, aortic aneurysm. She was being seen by her Paper Twister Tender Dr. Espino, with a cardiac catheterization plan for Monday. She was found to have a hemoglobin of 7 on routine lab work up. Looking back in records, the patient has been anemic since 2019, progressive. Her platelets have been noted to be increased since April 2021. Patient states that she has had some recent shortness of breath with activity, bilateral lower extremity swelling and fatigue. She denies a personal history of anemia. She is positive for bruising, reports restless legs symptoms, tiredness. She does take ibuprofen 1-3 times a day. She is on aspirin and Plavix. She states that she had a colonoscopy about 7-8 years ago. She denies any bleeding, weight loss, she eats good, she denies any abdominal surgeries. Her occult stool was negative. She states that her mother was anemic. Review of Systems 10 point ROS is neg except as stated in HPI Past Medical History Past Medical History: Chest Pain / Angina, Hyperlipidemia, Hypertension, Osteoarthritis (OA), Vascular Disorder Additional Past Medical History / Comment(s): has difficulty walking,aortic aneurysm,SOB,yesika leg swelling from knee down,ruptured disk,hemorrhage rt eye after cataract surgery, left leg stenting History of Any Multi-Drug Resistant Organisms: None Reported Additional Past Surgical History / Comment(s): Aortogram,yesika cataracts,laser surgery rt eye hemorrhage post cataract surg. Past Anesthesia/Blood Transfusion Reactions: No Reported Reaction Past Psychological History: No Psychological Hx Reported Smoking Status: Former smoker Past Alcohol Use History: None Reported Additional Past Alcohol Use History / Comment(s): quit smoking 2018,started smoking age 14-1ppd Past Drug Use History: None Reported - Past Family History Mother Family Medical History: No Reported History Medications and Allergies Home Medications Medication Instructions Recorded Confirmed Type Aspirin [Adult Low Dose Aspirin EC] 81 mg PO DAILY 01/30/20 03/14/22 History Simvastatin 40 mg PO HS 01/30/20 03/14/22 History amLODIPine BESYLATE 10 mg PO DAILY 01/30/20 03/14/22 History Clopidogrel [Plavix] 75 mg PO DAILY #90 tab 03/19/20 03/14/22 Rx Isosorbide Mononitrate ER [Imdur] 30 mg PO DAILY 03/14/22 03/14/22 History Metoprolol Succinate (ER) [Toprol 50 mg PO DAILY 03/14/22 03/14/22 History Xl] Allergies Allergy/AdvReac Type Severity Reaction Status Date / Time No Known Allergies Allergy Verified 03/14/22 16:59 Physical Exam Vitals: Vital Signs Temp Pulse Pulse Resp BP BP Pulse Ox 03/15/22 03:02 98.3 F 81 18 158/77 94 L 03/14/22 22:08 98 F 106 H 18 153/71 95 03/14/22 20:40 98 F 90 18 163/87 96 03/14/22 20:00 22 03/14/22 19:17 76 16 154/74 95 03/14/22 16:58 83 16 158/87 96 03/14/22 13:03 98.0 F 85 18 160/87 96 Intake and Output 03/14/22 03/15/22 03/15/22 22:59 06:59 14:59 Other: # Voids 2 Weight 55.792 kg - Constitutional General appearance: average body habitus, cooperative, no acute distress - EENT Eyes: anicteric sclerae, EOMI ENT: hearing grossly normal, normal oropharynx - Neck Neck: no lymphadenopathy - Respiratory Respiratory: bilateral: CTA - Cardiovascular Rhythm: regular Heart sounds: normal: S1, S2 Abnormal Heart Sounds: no systolic murmur, no diastolic murmur, no rub, no S3 Gallop, no S4 Gallop, no click, no other leg Peripheral Edema: bilateral: 1+ - Gastrointestinal General gastrointestinal: no absent bowel sounds, no decreased bowel sounds, no distended, no hepatomegaly, no hyperactive bowel sounds, normal bowel sounds, no organomegaly, no rigid, no scaphoid, soft, no splenomegaly, no tenderness, no umbilical hernia, no ventral hernia - Integumentary Integumentary: normal turgor - Neurologic Neurologic: CNII-XII intact - Musculoskeletal Musculoskeletal: strength equal bilaterally - Psychiatric Psychiatric: A&O x's 3, appropriate affect, intact judgment & insight Results CBC & Chem 7: 03/15/22 06:30 03/15/22 06:30 Labs: Abnormal Lab Results - Last 24 Hours (Table) 03/14/22 03/14/22 03/14/22 Range/Units 15:25 15:25 15:25 RBC 3.20 L (3.80-5.40) m/uL Hgb 7.9 L (11.4-16.0) gm/dL Hct 25.9 L (34.0-46.0) % MCH 24.6 L (25.0-35.0) pg MCHC 30.4 L (31.0-37.0) g/dL RDW 19.2 H (11.5-15.5) % Plt Count 560 H (150-450) k/uL Retic Count (0.5-2.0) % APTT 21.3 L (22.0-30.0) sec Sodium 135 L (137-145) mmol/L Chloride (98-107) mmol/L Carbon Dioxide 21 L (22-30) mmol/L Calcium (8.4-10.2) mg/dL Total Bilirubin (0.2-1.3) mg/dL AST 37 H (14-36) U/L Total Protein 5.2 L (6.3-8.2) g/dL Albumin 2.8 L (3.5-5.0) g/dL 03/14/22 03/15/22 03/15/22 Range/Units 21:10 06:30 06:30 RBC 2.88 L 2.98 L (3.80-5.40) m/uL Hgb 7.1 L 7.2 L (11.4-16.0) gm/dL Hct 23.6 L 24.5 L (34.0-46.0) % MCH 24.5 L 24.3 L (25.0-35.0) pg MCHC 29.9 L 29.6 L (31.0-37.0) g/dL RDW 19.4 H 19.4 H (11.5-15.5) % Plt Count 483 H 474 H (150-450) k/uL Retic Count 2.1 H (0.5-2.0) % APTT (22.0-30.0) sec Sodium (137-145) mmol/L Chloride 110 H (98-107) mmol/L Carbon Dioxide (22-30) mmol/L Calcium 8.0 L (8.4-10.2) mg/dL Total Bilirubin <0.1 L (0.2-1.3) mg/dL AST (14-36) U/L Total Protein 4.5 L (6.3-8.2) g/dL Albumin 2.4 L (3.5-5.0) g/dL Assessment and Plan (1) Hypochromic anemia Current Visit: Yes Status: Chronic Priority: High Code(s): D50.9 - IRON DEFICIENCY ANEMIA, UNSPECIFIED SNOMED Code(s): 691073036 Plan: Anemia workup ordered. Some of the workup has resulted. It is noted she has low ferritin and iron. Recommendation would be for endoscopy workup for iron deficiency, on dual antiplatelet therapy and taking ibuprofen. She reports a colonoscopy 7-8 years ago, never had an EGD. Parenteral iron ordered, no oral in case endoscopy is going to be done. Pending rest of the workup, further recommendations to follow. attests: I seen and examined patient, performed H&P, developed impression and plan of care. Discussed with dictator. Agree with documentation, dictated as a scribe
[2022-03-15] MEDS: ATORVASTATIN 20 MG TAB PO SCH (19:28)
[2022-03-15] MEDS: ACETAMINOPHEN TAB 325 MG TAB PO PRN (19:28)
[2022-03-16] MEDS: METOPROLOL SUCCINATE (ER) 50 MG TAB.ER.24H PO SCH (08:25)
[2022-03-16] MEDS: SODIUM FERRIC GLUCONAT-SUCROSE 125 MG in SODIUM CHLORIDE 0.9% 100 ML IVPB SCH (08:25)
[2022-03-16] MEDS: CYANOCOBALAMIN 500 MCG TAB PO SCH (08:25)
[2022-03-16] MEDS: amLODIPine 10 MG TAB PO SCH (08:25)
[2022-03-16] MEDS: ISOSORBIDE MONONITRATE ER 30 MG TAB.ER.24H PO SCH (08:25)
[2022-03-16] MEDS: LOSARTAN 50 MG TAB PO SCH (09:39)
--- NOTE | 2022-03-16 10:56 | P.CRDCN ---
History of Present Illness Consult date: 03/16/22 Requesting physician: Ramon Bustos Reason for Consult (text): shortness of breath Chief complaint: shortness of breath, anemia History of present illness: This is a pleasant 71-year-old female patient who follows in the office with Dr. Greer. She has a history of abdominal aortic aneurysm, peripheral arterial disease status post angioplasty of the left leg, hypertension and hyperlipide herbie. Had a prior abnormal Lexiscan MPI in June 2021 which showed a partially reversible anterior apical defect. She was recently seen in the office on the and was complaining of increasing severity of her shortness of breath as well as an episode of chest discomfort that woke her in the middle and 8. At that time she was recommended to undergo cardiac catheterization and was given a slip for blood work. Labs showed the patient to be anemic with a hemoglobin of 7.3 and she was recommended by our office to go to the emergency department for further evaluation. On arrival to the emergency department hemoglobin was 7.9. We were asked to the patient in consultation for the shortness of breath. Over the last year she has been complaining of some fatigue, shortness of breath with activity as well as bilateral lower extremity edema. His been seen and evaluated by hematology they're recommending further workup with endoscopy as the patient has been found to be iron deficient and has been on dual antiplatelet therapy as well as taking ibuprofen for leg pain. Her last colonoscopy was 7 or 8 years ago and she's never had an EGD. She is currently getting iron infusions. Upon examination she is resting comfortably in bed. Her blood pressure has been elevated. She continues to complain of significant dyspnea on exertion just with walking to the bathroom. Continues to have lower extremity edema. Her feel quite tired. Upon review of the records from our office most recent echocardiogram done in July of this year showed normal LV systolic function with mild MR and mild TR. Most recent hemoglobin done yesterday was 7.2. Stool was negative for occult blood. Past Medical History Past Medical History: Chest Pain / Angina, Hyperlipidemia, Hypertension, Osteoarthritis (OA), Vascular Disorder Additional Past Medical History / Comment(s): has difficulty walking,aortic aneurysm,SOB,yesika leg swelling from knee down,ruptured disk,hemorrhage rt eye after cataract surgery, left leg stenting History of Any Multi-Drug Resistant Organisms: None Reported Additional Past Surgical History / Comment(s): Aortogram,yesika cataracts,laser surgery rt eye hemorrhage post cataract surg. Past Anesthesia/Blood Transfusion Reactions: No Reported Reaction Past Psychological History: No Psychological Hx Reported Smoking Status: Former smoker Past Alcohol Use History: None Reported Additional Past Alcohol Use History / Comment(s): quit smoking 2018,started smoking age 14-1ppd Past Drug Use History: None Reported - Past Family History Mother Family Medical History: No Reported History Medications and Allergies Home Medications Medication Instructions Recorded Confirmed Type Aspirin [Adult Low Dose Aspirin EC] 81 mg PO DAILY 01/30/20 03/14/22 History Simvastatin 40 mg PO HS 01/30/20 03/14/22 History amLODIPine BESYLATE 10 mg PO DAILY 01/30/20 03/14/22 History Clopidogrel [Plavix] 75 mg PO DAILY #90 tab 03/19/20 03/14/22 Rx Isosorbide Mononitrate ER [Imdur] 30 mg PO DAILY 03/14/22 03/14/22 History Metoprolol Succinate (ER) [Toprol 50 mg PO DAILY 03/14/22 03/14/22 History Xl] Allergies Allergy/AdvReac Type Severity Reaction Status Date / Time No Known Allergies Allergy Verified 03/14/22 16:59 Physical Exam Vitals: Vital Signs Temp Pulse Pulse Resp BP Pulse Ox 03/16/22 07:48 98.2 F 62 17 162/65 92 L 03/16/22 02:00 98.0 F 74 16 162/82 95 03/15/22 19:33 98.2 F 67 17 144/68 95 03/15/22 14:00 98.3 F 70 17 153/82 93 L Intake and Output 03/15/22 03/16/22 03/16/22 22:59 06:59 14:59 Intake Total 296 296 Balance 296 296 Intake: Oral 296 296 Other: # Voids 4 1 PHYSICAL EXAMINATION: This is a 71-year-old female in no apparent distress at the time of my examination. VITAL SIGNS: Blood pressure 162/65, heart rate 62, respirations 16, temp 98.2F. Patient is 92 % on and air. HEENT: Head is atraumatic, normocephalic. Pupils are equal, round. Sclerae anicteric. Conjunctivae are clear. Mucous membranes of the mouth are moist. Neck is supple. There is no elevated jugular venous pressure. No carotid bruit is heard. CHEST EXAMINATION: Clear to auscultation bilaterally. No wheezes rales or rhonc hi. Respirations even and nonlabored. HEART EXAMINATION: Heart regular, positive S1 and S2. No S3. No S4. Systolic ejection murmur at the base and a holosystolic murmur at the apex ABDOMEN: Soft, nontender. Bowel sounds are heard. No organomegaly noted. EXTREMITIES: 1+ peripheral pulses with evidence of mild lower extremity edema and no calf tenderness noted. NEUROLOGIC EXAMINATION: Patient is awake, alert and oriented x3. Results 03/15/22 06:30 03/15/22 06:30 Current Medications Generic Name Dose Route Start Last Admin Trade Name Freq PRN Reason Stop Dose Admin Acetaminophen 650 mg 03/15/22 17:35 03/15/22 19:28 Acetaminophen Tab 325 Mg Tab PO 650 mg Q6HR PRN Administration Fever and/ or Pain Amlodipine Besylate 10 mg 03/15/22 09:00 03/16/22 08:25 Amlodipine 10 Mg Tab PO 10 mg DAILY PETE Administration Atorvastatin Calcium 40 mg 03/16/22 21:00 Atorvastatin 40 Mg Tab PO HS PETE Cyanocobalamin 1,000 mcg 03/15/22 15:15 03/16/22 08:25 Cyanocobalamin 500 Mcg Tab PO 1,000 mcg DAILY PETE Administration Ferric Sodium Gluconate 125 mg 110 mls @ 100 mls/hr 03/15/22 15:30 03/16/22 08:25 / Sodium Chloride IVPB 100 mls/hr DAILY PETE Administration Isosorbide Mononitrate 30 mg 03/15/22 09:00 03/16/22 08:25 Isosorbide Mononitrate Er 30 Mg Tab.Er.24h PO 30 mg DAILY PETE Administration Losartan Potassium 50 mg 03/16/22 09:00 03/16/22 09:39 Losartan 50 Mg Tab PO 50 mg DAILY PETE Administration Metoprolol Succinate 50 mg 03/15/22 09:00 03/16/22 08:25 Metoprolol Succinate (Er) 50 Mg Tab.Er.24h PO 50 mg DAILY PETE Administration Naloxone HCl 0.2 mg 03/14/22 18:28 Naloxone 0.4 Mg/Ml 1 Ml Vial IV Q2M PRN Opioid Reversal Intake and Output 08/03/16/22 03/16/22 22:59 06:59 14:59 Intake Total 296 296 Balance 296 296 Intake: Oral 296 296 Other: # Voids 4 1 03/15/22 06:30 03/15/22 06:30 EKG Interpretations (text) Sinus rhythm Assessment and Plan Assessment: #1 iron deficiency anemia #2 symptoms of worsening dyspnea on exertion and lower extremity edema, likely secondary to anemia #3 hypertension, uncontrolled #4 PAD status post angioplasty #5 AAA Plan: From cardiology's perspective we will add losartan. Patient's symptoms of dyspnea on exertion and fatigue and edema likely related to underlying anemia. We will obtain a 2-D echo with Doppler study to assess cardiac structure and function. We will cancel cardiac catheterization that was scheduled for Monday. We will continue to follow the patient and provide further recommendations accordingly. RADIOLOGY TEACHER note has been reviewed, I agree with a documented findings and plan of care. Patient was seen and examined.
[2022-03-16 11:07] LABS: African American GFR (CKD) 65.2 (60.0-200.0); BUN/Creat Ratio 20.5 Ratio (12.00-20.00); Blood Urea Nitrogen 20.5 mg/dL (9.0-27.0); Calcium 8.2 mg/dL (8.7-10.3); Non-African American GFR(CKD) 56.2 (60.0-200.0); Potassium 4.5 mmol/L (3.5-5.5)
[2022-03-16 11:08] LABS: Magnesium 2.1 mg/dL (1.5-2.4)
[2022-03-16 13:56] LABS: Basophils # (M) 0 X 10*3/uL (0.00-0.10); Eosinophils # (M) 0.14 X 10*3/uL (0.04-0.35); HCT 21.1 % (37.2-46.3); HGB 6.4 g/dL (12.0-15.0); Lymphocytes # (M) 1.45 X 10*3/uL (0.90-5.00); MCH 24.2 pg (27.0-32.0); MCHC 30.3 g/dL (32.0-37.0); MCV 79.9 fL (80.0-97.0); Mean Platelet Volume 9.3 fL (9.5-12.2); Monocytes # (M) 0.05 X 10*3/uL (0.20-1.00); NRBC Per 100 WBC 0 /100 WBCS (0.0-0.0); Neutrophils # (M) 3.04 X 10*3/uL (2.00-8.90); Neutrophils % (M) 65 %; Platelet Count 427 X 10*3/uL (140-440); RBC 2.64 X 10*6/uL (4.10-5.20); WBC 4.68 X 10*3/uL (4.50-10.00)
--- NOTE | 2022-03-16 13:59 | P.PN ---
Subjective Progress Note Date: 03/16/22 Principal diagnosis: Anemia In f/u today pt has no new c/o, denies any bleeding. She has tolerated parenteral iron. Objective - Vital Signs Vital signs: Vital Signs Temp 98.2 F 03/16/22 07:48 Pulse 62 03/16/22 07:48 Resp 17 03/16/22 07:48 BP 162/65 03/16/22 07:48 Pulse Ox 92 L 03/16/22 07:48 FiO2 Intake & Output 03/15/22 03/16/22 03/16/22 18:59 06:59 18:59 Intake Total 888 296 Balance 888 296 Intake: Oral 888 296 Other: # Voids 4 1 - Constitutional General appearance: Present: average body habitus, cooperative, no acute distress - EENT Eyes: Present: anicteric sclerae, EOMI ENT: Present: hearing grossly normal - Respiratory Respiratory: bilateral: CTA - Cardiovascular Rhythm: regular Heart sounds: normal: S1, S2 Abnormal Heart Sounds: Absent: systolic murmur, diastolic murmur, rub, S3 Gallop, S4 Gallop, click, other - Peripheral edema leg Peripheral Edema: bilateral: None - Gastrointestinal General gastrointestinal: Present: normal bowel sounds, soft - Neurologic Neurologic: Present: CNII-XII intact - Musculoskeletal Musculoskeletal: Present: strength equal bilaterally - Psychiatric Psychiatric: Present: A&O x's 3, appropriate affect, intact judgment & insight - Labs CBC & Chem 7: 03/15/22 06:30 03/16/22 06:55 Labs: Abnormal Lab Results - Last 24 Hours (Table) 03/15/22 03/16/22 Range/Units 09:13 06:55 Chloride 110 H (96-109) mmol/L Anion Gap 8.00 L (10.00-18.00) mmol/L Est GFR (CKD-EPI)NonAf 56.2 L (60.0-200.0) BUN/Creatinine Ratio 20.50 H (12.00-20.00) Ratio Calcium 8.2 L (8.7-10.3) mg/dL Total Protein (PEP) 3.9 L (6.2-8.2) g/dL Assessment and Plan (1) Hypochromic anemia Current Visit: Yes Status: Chronic Priority: High Code(s): D50.9 - IRON DEFICIENCY ANEMIA, UNSPECIFIED SNOMED Code(s): 422101679 Plan: Anemia workup still some results pending. Inflammatory markers WNL. Parenteral iron ordered for iron deficiency. Recommendation would be for endoscopy workup for iron deficiency, on dual antiplatelet therapy and taking ibuprofen. She reports a colonoscopy 7-8 years ago, never had an EGD. attests: I seen and examined patient, performed H&P, developed impression and plan of care. Discussed with dictator. Agree with documentation, dictated as a scribe
--- NOTE | 2022-03-16 14:51 | P.PN ---
Subjective Progress Note Date: 03/16/22 Principal diagnosis: sob Still having sob with ambulation. No chest pain. No fevers or chills. Objective - Vital Signs Vital signs: Vital Signs Temp 98.1 F 03/16/22 14:00 Pulse 69 03/16/22 14:00 Resp 18 03/16/22 14:00 BP 130/69 03/16/22 14:00 Pulse Ox 100 03/16/22 14:00 FiO2 Intake & Output 03/15/22 03/16/22 03/16/22 18:59 06:59 18:59 Intake Total 888 592 Balance 888 592 Intake: Oral 888 592 Other: # Voids 4 1 - Exam Constitutional: No acute distress, conversant, pleasant Eyes:Anicteric sclerae, moist conjunctiva, no lid-lag, PERRLA, ENMT: Oropharynx clear, no erythema, exudates Neck: Supple, FROM, no masses, or JVD, No carotid bruits, No thyromegaly Lungs: Clear to auscultation, Clear to percussion, Normal respiratory effort, no accessory muscle use Cardiovascular: Heart regular in rate and rhythm, No murmurs, gallops, or rubs, No peripheral edema Abdominal: Soft, Nontender, no guarding, rebound or rigidity, Normoactive bowel sounds, No hepatomegaly, No splenomegaly, No palpable mass Skin: Normal temperature, tone, texture, turgor, no induration, No subcutaneous nodules, No rash, lesions, No ulcers Extremities: No digital cyanosis, No clubbing, Pedal pulses intact and symmetrical, Radial pulses intact and symmetrical, No calf tenderness Psychiatric: Alert and oriented to person, place and time, appropriate affect, intact judgement Neuro: Muscles Strength 5/5 in all 4 extremities, Sensation to light touch grossly present throughout, Cranial nerves II-XII grossly intact, no focal sensory deficits - Labs CBC & Chem 7: 03/16/22 06:55 03/16/22 06:55 Labs: Abnormal Lab Results - Last 24 Hours (Table) 03/14/22 03/15/22 03/16/22 Range/Units 15:25 09:13 06:55 RBC 2.64 L (4.10-5.20) X 10*6/uL Hgb 6.4 L* (12.0-15.0) g/dL Hct 21.1 L (37.2-46.3) % MCV 79.9 L (80.0-97.0) fL MCH 24.2 L (27.0-32.0) pg MCHC 30.3 L (32.0-37.0) g/dL RDW 20.0 H (11.5-14.5) % MPV 9.3 L (9.5-12.2) fL Monocytes # (Manual) 0.05 L (0.20-1.00) X 10*3/uL Chloride (96-109) mmol/L Anion Gap (10.00-18.00) mmol/L Est GFR (CKD-EPI)NonAf (60.0-200.0) BUN/Creatinine Ratio (12.00-20.00) Ratio Calcium (8.7-10.3) mg/dL Total Protein (PEP) 3.9 L (6.2-8.2) g/dL Crossmatch See Detail 03/16/22 Range/Units 06:55 RBC (4.10-5.20) X 10*6/uL Hgb (12.0-15.0) g/dL Hct (37.2-46.3) % MCV (80.0-97.0) fL MCH (27.0-32.0) pg MCHC (32.0-37.0) g/dL RDW (11.5-14.5) % MPV (9.5-12.2) fL Monocytes # (Manual) (0.20-1.00) X 10*3/uL Chloride 110 H (96-109) mmol/L Anion Gap 8.00 L (10.00-18.00) mmol/L Est GFR (CKD-EPI)NonAf 56.2 L (60.0-200.0) BUN/Creatinine Ratio 20.50 H (12.00-20.00) Ratio Calcium 8.2 L (8.7-10.3) mg/dL Total Protein (PEP) (6.2-8.2) g/dL Crossmatch Assessment and Plan Plan: Chronic anemia, normocytic Negative fecal occult blood tests done in the emergency department Hold aspirin and plavix for now Iron profile consistent with deficiency. Replace iron with iv route, d/c on oral iron. vitamin B12, on the low end of normal, continue B12 replacement Check hemoglobin in a.m. Hematology consulted recommending GI scopes, consult GI. Positive stress test According to cardio symptoms likely due to anemia, no heart cath advised now. Echo Sob Could be due to anemia vs. CAD/heart disease Management as above. Chronic History of peripheral vascular disease History of aortic aneurysm Hyperlipidemia, Hypertension, Osteoarthritis (OA) All stable resume meds
--- NOTE | 2022-03-16 15:49 | P.CONS ---
History of Present Illness - Reason for Consult Consult date: 03/16/22 Anemia possible GI bleed, Requesting physician: Ramon Bustos - Chief Complaint Abnormal outpatient labs - History of Present Illness This is a pleasant 71-year-old female patient who follows in the office with Dr. Светлана Espino for coronary artery disease. She has a history of abdominal aortic aneurysm, peripheral arterial disease status post angioplasty of the left leg, hypertension and hyperlipidemia. Had a prior abnormal Lexiscan MPI in June 2021 which showed a partially reversible anterior apical defect. She was recently seen in the office on the and was complaining of increasing severity of her shortness of breath as well as an episode of chest discomfort that woke her. At that time she was recommended to undergo cardiac catheterization, she was scheduled this coming Monday. She had outpatient blood work done that showed a hemoglobin of 7.3 and was told by cardiology to come to the emergency department for further evaluation and possible blood transfusion. On arrival to the emergency department hemoglobin was 7.9 With a drop yesterday evening to 7.2 The patient denies any blood in her stool or black stool. She denies any abdominal pain, nausea or vomiting. Denies any previous history of peptic ulcer disease or EGD. Last colonoscopy 7-[address] done [address] Joana Espino, report not available. Patient has been on 81 mg of aspirin and Plavix daily, and also states that she takes 400 mg of ibuprofen 3 times a day for leg pain. Gastroenterology was consulted for possible GI bleed. Hematology also consulted for workup for anemia. They're recommending endoscopic evaluation for hypochromic anemia, patient was also found to have iron deficiency anemia. Currently getting IV iron replacement. Today's labs currently pending. Review of Systems REVIEW OF SYSTEMS: CARDIOPULMONARY: No chest pain, does get short of breath. Gastrointestinal: Denies abdominal pain, epigastric pain, acid reflux. No naus ea or vomiting. No hematemesis, coffee-ground emesis. No rectal bleeding, or melena. GENITOURINARY: No dysuria or hematuria. MUSCULOSKELETAL: Reports normal range of motion. Lower extremity pain bilateral. SKIN: No rashes. No jaundice. ENDOCRINE: No chills, fevers. No excessive weight gain or loss. No polydipsia or polyuria. PSYCHIATRIC: Unremarkable. NEUROLOGY: No change in mental status. Denies dizziness, headache. ENT: Vision unremarkable. CONSTITUTIONAL: No recent weight loss. No fever, chills, night sweats. Past Medical History Past Medical History: Chest Pain / Angina, Hyperlipidemia, Hypertension, Osteoarthritis (OA), Vascular Disorder Additional Past Medical History / Comment(s): has difficulty walking,aortic aneurysm,SOB,yesika leg swelling from knee down,ruptured disk,hemorrhage rt eye after cataract surgery, left leg stenting History of Any Multi-Drug Resistant Organisms: None Reported Additional Past Surgical History / Comment(s): Aortogram,yesika cataracts,laser surgery rt eye hemorrhage post cataract surg. Past Anesthesia/Blood Transfusion Reactions: No Reported Reaction Past Psychological History: No Psychological Hx Reported Smoking Status: Former smoker Past Alcohol Use History: None Reported Additional Past Alcohol Use History / Comment(s): quit smoking 2018,started smoking age 14-1ppd Past Drug Use History: None Reported - Past Family History Mother Family Medical History: No Reported History Medications and Allergies Home Medications Medication Instructions Recorded Confirmed Type Aspirin [Adult Low Dose Aspirin EC] 81 mg PO DAILY 01/30/20 03/14/22 History Simvastatin 40 mg PO HS 01/30/20 03/14/22 History amLODIPine BESYLATE 10 mg PO DAILY 01/30/20 03/14/22 History Clopidogrel [Plavix] 75 mg PO DAILY #90 tab 03/19/20 03/14/22 Rx Isosorbide Mononitrate ER [Imdur] 30 mg PO DAILY 03/14/22 03/14/22 History Metoprolol Succinate (ER) [Toprol 50 mg PO DAILY 03/14/22 03/14/22 History Xl] Allergies Allergy/AdvReac Type Severity Reaction Status Date / Time No Known Allergies Allergy Verified 03/14/22 16:59 Physical Exam Vitals: Vital Signs Temp Pulse Pulse Resp BP Pulse Ox 03/16/22 07:48 98.2 F 62 17 162/65 92 L 03/16/22 02:00 98.0 F 74 16 162/82 95 03/15/22 19:33 98.2 F 67 17 144/68 95 03/15/22 14:00 98.3 F 70 17 153/82 93 L Intake and Output 03/15/22 03/16/22 03/16/22 22:59 06:59 14:59 Intake Total 296 296 Balance 296 296 Intake: Oral 296 296 Other: # Voids 4 1 Results CBC & Chem 7: 03/16/22 06:55 03/16/22 06:55 Labs: Abnormal Lab Results - Last 24 Hours (Table) 03/15/22 03/15/22 Range/Units 06:30 09:13 Iron 23 L (50-170) ug/dL % Saturation 7.24 L (12.00-45.00) Ferritin 9.3 L (10.0-291.0) ng/mL Total Protein (PEP) 3.9 L (6.2-8.2) g/dL Assessment and Plan (1) Hypochromic anemia Narrative/Plan: 71-year-old female sent in by her credit correspondence clerk for low hemoglobin found in the outpatient setting that she is being worked up for coronary artery disease and supposed to undergo cardiac catheterization this Monday. Patient denies previous history of anemia, denies any previous blood transfusions. She has no history of peptic ulcer disease and no prior EGD. Last colonoscopy [address] done [address] Dr[address] Espino however no report available at this time. Patient denies any signs or symptoms of GI blood loss such as black stool or bright red blood in her stool. Denies any rectal bleeding. Denies abdominal pain nausea or vomiting. Patient does have increased risk for possible upper GI blood loss due to chronic NSAID use. Patient does admit to using 400 mg of ibuprofen 3 times a day for leg pain. Patient is also on a low-dose aspirin as well as Plavix for coronary artery and peripheral arterial disease. Possible etiologies include peptic ulcer disease, AVM, gastritis, esophagitis or other possible etiologies. Patient has been seen by hematology who has done anemia workup and has shown patient to be iron deficient. They are recommending endoscopic evaluation to rule out possibility of GI blood loss is source of anemia. We'll proceed with EGD and colonoscopy on Monday. Current Visit: Yes Status: Chronic Priority: High Code(s): D50.9 - IRON DEFICIENCY ANEMIA, UNSPECIFIED SNOMED Code(s): 688641125 (2) Coronary artery disease Current Visit: Yes Status: Acute Code(s): I25.10 - ATHSCL HEART DISEASE OF [place] CORONARY ARTERY W/O ANG PCTRS SNOMED Code(s): 13902042 (3) Peripheral arterial disease Current Visit: Yes Status: Acute Code(s): I73.9 - PERIPHERAL VASCULAR DISEASE, UNSPECIFIED SNOMED Code(s): 419038383 Plan: 1. Continue symptomatic and supportive care 2. Daily CBC, transfuse for hemoglobin less than 7 3. Agree with iron replacement 4. Avoid NSAIDs 5. Hold aspirin and Plavix 6. Heart healthy diet, clear liquid diet tomorrow 7. Will start bowel prep tomorrow 8. Plan for EGD colonoscopy on Monday Thank you for this consultation, we will continue to follow. Dr. Joana Espino I agree with the dictator's note, documented as a scribe by Irma Acevedo.
[2022-03-16 19:12] LABS: Albumin 1.97 g/dL (3.80-4.90); Gamma Globulin 0.22 g/dL (0.70-1.50)
--- NOTE | 2022-03-16 19:18 | CA ---
Transthoracic Echo Report Name: Henny Camargo Age: 71 Gender: F : 1950 Exam Date: 03/16/2022 11:21 Exam Location: [facility] Ht (in): 62 Wt (lb): 122 Ordering Physician: Shira Mendez Attending/Referring Phys: [id number], Vanessa Grab Operator Mady Mujica RDCS Procedure CPT: Indications: SHORTNESS OF BREATH Cardiac Hx: Technical Quality: Good Contrast 1: Total Dose (mL): Contrast 2: Total Dose (mL): MEASUREMENTS (Male / Female) Normal Values 2D ECHO LV Diastolic Diameter PLAX 3.6 cm 4.2 - 5.9 / 3.9 - 5.3 cm LV Systolic Diameter PLAX 2.9 cm IVS Diastolic Thickness 1.3 cm 0.6 - 1.0 / 0.6 - 0.9 cm LVPW Diastolic Thickness 1.5 cm 0.6 - 1.0 / 0.6 - 0.9 cm LV Relative Wall Thickness 0.8 RV Internal Dim ED PLAX 2.6 cm LA Systolic Diameter LX 2.7 cm 3.0 - 4.0 / 2.7 - 3.8 cm LA Volume 54.2 cm??? 18 - 58 / 22 - 52 cm??? M-MODE Aortic Root Diameter MM 2.6 cm MV E Point Septal Separation 0.2 cm AV Cusp Separation MM 1.0 cm DOPPLER MV Area PHT 4.3 cm??? Mitral E Point Velocity 90.7 cm/s Mitral A Point Velocity 98.2 cm/s Mitral E to A Ratio 0.9 MV Deceleration Time 176.1 ms MV E' Velocity 7.9 cm/s Mitral E to MV E' Ratio 11.5 TR Peak Velocity 234.9 cm/s TR Peak Gradient 22.1 mmHg Right Ventricular Systolic Press 27.1 mmHg FINDINGS Left Ventricle Left ventricular ejection fraction is estimated at 55-60%. Mildly increased left ventricular wall thickness. Right Ventricle Normal right ventricular size and function. Right Atrium Normal right atrial size. Left Atrium Mildly increased left atrial volume. Mitral Valve Structurally normal mitral valve. Mild mitral regurgitation. Aortic Valve Trileaflet aortic valve. Tricuspid Valve Structurally normal tricuspid valve. Mild tricuspid regurgitation. Pulmonic Valve Structurally normal pulmonic valve. Pericardium Normal pericardium. Aorta Normal size aortic root and proximal ascending aorta. CONCLUSIONS 1. Normal left ventricle size and systolic function 2. Mild mitral and tricuspid regurgitation 3. No pericardial effusion Previewed by: Dr. Zulma Quiroga MD (Electronically Signed) Final Date: 16 March 2022 19:17
[2022-03-16] MEDS: ATORVASTATIN 40 MG TAB PO SCH (21:14)
[2022-03-17 06:35] LABS: African American GFR (CKD) 67 (>60 ml/min/1.73 sqM); Anion Gap 7 mmol/L; Blood Urea Nitrogen 17 mg/dL (7-17); Calcium 8.8 mg/dL (8.4-10.2); Carbon Dioxide 22 mmol/L (22-30); Chloride 109 mmol/L (98-107); Glucose 75 mg/dL (74-99); Non-African American GFR(CKD) 58 (>60 ml/min/1.73 sqM); Potassium 3.8 mmol/L (3.5-5.1); Sodium 138 mmol/L (137-145)
[2022-03-17] MEDS: CYANOCOBALAMIN 500 MCG TAB PO SCH (07:29)
[2022-03-17] MEDS: ISOSORBIDE MONONITRATE ER 30 MG TAB.ER.24H PO SCH (07:29)
[2022-03-17] MEDS: METOPROLOL SUCCINATE (ER) 50 MG TAB.ER.24H PO SCH (07:30)
[2022-03-17] MEDS: amLODIPine 10 MG TAB PO SCH (07:30)
[2022-03-17] MEDS: LOSARTAN 50 MG TAB PO SCH (07:30)
[2022-03-17] MEDS: SODIUM FERRIC GLUCONAT-SUCROSE 125 MG in SODIUM CHLORIDE 0.9% 100 ML IVPB SCH (08:32)
[2022-03-17 09:39] LABS: HCT 28.8 % (37.2-46.3); HGB 9.1 g/dL (12.0-15.0); MCH 25.6 pg (27.0-32.0); MCHC 31.6 g/dL (32.0-37.0); MCV 80.9 fL (80.0-97.0); Mean Platelet Volume 9.6 fL (9.5-12.2); NRBC Per 100 WBC 0 /100 WBCS (0.0-0.0); Platelet Count 460 X 10*3/uL (140-440); RBC 3.56 X 10*6/uL (4.10-5.20); RDW 18.2 % (11.5-14.5); WBC 6.33 X 10*3/uL (4.50-10.00)
--- NOTE | 2022-03-17 11:26 | P.PN ---
Subjective Progress Note Date: 03/17/22 HISTORY OF PRESENT ILLNESS: This is a pleasant 71-year-old female patient who follows in the office with Dr. Greer. She has a history of abdominal aortic aneurysm, peripheral arterial disease status post angioplasty of the left leg, hypertension and hyperlipidemia. Had a prior abnormal Lexiscan MPI in June 2021 which showed a partially reversible anterior apical defect. She was recently seen in the office on the and was complaining of increasing severity of her shortness of breath as well as an episode of chest discomfort that woke her in the middle and 8. At that time she was recommended to undergo cardiac catheterization and was given a slip for blood work. Labs showed the patient to be anemic with a hemoglobin of 7.3 and she was recommended by our office to go to the emergency department for further evaluation. On arrival to the emergency department he moglobin was 7.9. We were asked to the patient in consultation for the shortness of breath. Over the last year she has been complaining of some fatigue, shortness of breath with activity as well as bilateral lower extremity edema. His been seen and evaluated by hematology they're recommending further workup with endoscopy as the patient has been found to be iron deficient and has been on dual antiplatelet therapy as well as taking ibuprofen for leg pain. Her last colonoscopy was 7 or 8 years ago and she's never had an EGD. She is currently getting iron infusions. Upon examination she is resting comfortably in bed. Her blood pressure has been elevated. She continues to complain of sig nificant dyspnea on exertion just with walking to the bathroom. Continues to have lower extremity edema. Her feel quite tired. Upon review of the records from our office most recent echocardiogram done in July of this year showed normal LV systolic function with mild MR and mild TR. Most recent hemoglobin done yesterday was 7.2. Stool was negative for occult blood. 03/17/2022 Patient examined this morning at the bedside. Patient denies chest pain or pressure. She reports shortness of breath with exertion this morning. She reports improvement in her lower extremity edema. Denies dark or bloody stools. She is scheduled for endoscopy tomorrow. Echocardiogram completed revealing ejection fraction 55-60%, mild MR, mild TR. Patient's blood pressure was elevated this morning with a systolic in the 160s. Patient's blood pressure has improved with medications to a systolic of 152. PHYSICAL EXAM: VITAL SIGNS: Reviewed. GENERAL: Well-developed in no acute distress. NECK: Supple. No JVD or thyromegaly LUNGS: Respirations even and unlabored. Lungs essentially clear to auscultation bilaterally. HEART: Regular rate and rhythm. S1 and S2 heard. Systolic murmur noted. EXTREMITIES: Normal range of motion. No clubbing or cyanosis. Peripheral pulses intact. Trace lower extremity edema ASSESSMENT: #1 iron deficiency anemia #2 symptoms of worsening dyspnea on exertion and lower extremity edema, likely secondary to anemia #3 hypertension, uncontrolled #4 PAD status post angioplasty #5 AAA PLAN: Continue current cardiac medications Continue to monitor blood pressure. If BP remains elevated, will increase losartan Patient scheduled for endoscopy tomorrow Further recommendations pending patient's course Nurse practitioner note has been reviewed by physician. Signing provider agrees with the documented findings, assessment, and plan of care. Objective - Vital Signs Vital signs: Vital Signs Temp 97.9 F 03/17/22 08:00 Pulse 66 03/17/22 09:27 Resp 16 03/17/22 02:00 BP 152/68 03/17/22 09:27 Pulse Ox 93 L 03/17/22 08:00 FiO2 Intake & Output 03/16/22 03/17/22 03/17/22 18:59 06:59 18:59 Intake Total 1198 Balance 1198 Intake: Oral 888 Blood Product 310 Rc As-1 Unit 310 [id number] Other: # Voids 2 3 1 - Labs CBC & Chem 7: 03/17/22 05:34 03/17/22 05:34 Labs: Abnormal Lab Results - Last 24 Hours (Table) 03/14/22 03/15/22 03/16/22 Range/Units 15:25 09:13 06:55 RBC 2.64 L (4.10-5.20) X 10*6/uL Hgb 6.4 L* (12.0-15.0) g/dL Hct 21.1 L (37.2-46.3) % MCV 79.9 L (80.0-97.0) fL MCH 24.2 L (27.0-32.0) pg MCHC 30.3 L (32.0-37.0) g/dL RDW 20.0 H (11.5-14.5) % Plt Count (140-440) X 10*3/uL MPV 9.3 L (9.5-12.2) fL Monocytes # (Manual) 0.05 L (0.20-1.00) X 10*3/uL Chloride (98-107) mmol/L Albumin (PEP) 1.97 L (3.80-4.90) g/dL Beta Globulins 0.47 L (0.60-1.30) g/dL Gamma Globulins 0.22 L (0.70-1.50) g/dL Crossmatch See Detail 03/17/22 03/17/22 Range/Units 05:34 05:34 RBC 3.56 L (4.10-5.20) X 10*6/uL Hgb 9.1 L (12.0-15.0) g/dL Hct 28.8 L (37.2-46.3) % MCV (80.0-97.0) fL MCH 25.6 L (27.0-32.0) pg MCHC 31.6 L (32.0-37.0) g/dL RDW 18.2 H (11.5-14.5) % Plt Count 460 H (140-440) X 10*3/uL MPV (9.5-12.2) fL Monocytes # (Manual) (0.20-1.00) X 10*3/uL Chloride 109 H (98-107) mmol/L Albumin (PEP) (3.80-4.90) g/dL Beta Globulins (0.60-1.30) g/dL Gamma Globulins (0.70-1.50) g/dL Crossmatch
--- NOTE | 2022-03-17 13:24 | P.PN ---
Subjective Progress Note Date: 03/17/22 Principal diagnosis: sob Patient is still not feeling better, she is having sob and fatigue maddie with ambulation. No fevers. No n/v. No black stools, no overt bleeding. Objective - Vital Signs Vital signs: Vital Signs Temp 97.9 F 03/17/22 08:00 Pulse 66 03/17/22 09:27 Resp 16 03/17/22 02:00 BP 152/68 03/17/22 09:27 Pulse Ox 93 L 03/17/22 08:00 FiO2 Intake & Output 03/16/22 03/17/22 03/17/22 18:59 06:59 18:59 Intake Total 1198 Balance 1198 Intake: Oral 888 Blood Product 310 Rc As-1 Unit 310 [id number] Other: # Voids 2 3 1 - Exam Constitutional: No acute distress, conversant, pleasant Eyes:Anicteric sclerae, moist conjunctiva, no lid-lag, PERRLA, ENMT: Oropharynx clear, no erythema, exudates Neck: Supple, FROM, no masses, or JVD, No carotid bruits, No thyromegaly Lungs: Clear to auscultation, Clear to percussion, Normal respiratory effort, no accessory muscle use Cardiovascular: Heart regular in rate and rhythm, No murmurs, gallops, or rubs, No peripheral edema Abdominal: Soft, Nontender, no guarding, rebound or rigidity, Normoactive bowel sounds, No hepatomegaly, No splenomegaly, No palpable mass Skin: Normal temperature, tone, texture, turgor, no induration, No subcutaneous nodules, No rash, lesions, No ulcers Extremities: No digital cyanosis, No clubbing, Pedal pulses intact and symmetrical, Radial pulses intact and symmetrical, No calf tenderness Psychiatric: Alert and oriented to person, place and time, appropriate affect, intact judgement Neuro: Muscles Strength 5/5 in all 4 extremities, Sensation to light touch grossly present throughout, Cranial nerves II-XII grossly intact, no focal sensory deficits - Labs CBC & Chem 7: 03/17/22 05:34 03/17/22 05:34 Labs: Abnormal Lab Results - Last 24 Hours (Table) 03/14/22 03/15/22 03/16/22 Range/Units 15:25 09:13 06:55 RBC 2.64 L (4.10-5.20) X 10*6/uL Hgb 6.4 L* (12.0-15.0) g/dL Hct 21.1 L (37.2-46.3) % MCV 79.9 L (80.0-97.0) fL MCH 24.2 L (27.0-32.0) pg MCHC 30.3 L (32.0-37.0) g/dL RDW 20.0 H (11.5-14.5) % Plt Count (140-440) X 10*3/uL MPV 9.3 L (9.5-12.2) fL Monocytes # (Manual) 0.05 L (0.20-1.00) X 10*3/uL Chloride (98-107) mmol/L Albumin (PEP) 1.97 L (3.80-4.90) g/dL Beta Globulins 0.47 L (0.60-1.30) g/dL Gamma Globulins 0.22 L (0.70-1.50) g/dL Crossmatch See Detail 03/17/22 03/17/22 Range/Units 05:34 05:34 RBC 3.56 L (4.10-5.20) X 10*6/uL Hgb 9.1 L (12.0-15.0) g/dL Hct 28.8 L (37.2-46.3) % MCV (80.0-97.0) fL MCH 25.6 L (27.0-32.0) pg MCHC 31.6 L (32.0-37.0) g/dL RDW 18.2 H (11.5-14.5) % Plt Count 460 H (140-440) X 10*3/uL MPV (9.5-12.2) fL Monocytes # (Manual) (0.20-1.00) X 10*3/uL Chloride 109 H (98-107) mmol/L Albumin (PEP) (3.80-4.90) g/dL Beta Globulins (0.60-1.30) g/dL Gamma Globulins (0.70-1.50) g/dL Crossmatch Assessment and Plan Plan: Chronic anemia, normocytic Negative fecal occult blood tests done in the emergency department Hold aspirin and plavix for now Iron profile consistent with deficiency. Replaced iron with iv route, start oral iron. vitamin B12, on the low end of normal, continue B12 replacement Hemoglobin went up appropriately with blood transfusion, she is s/p 1 unit. Hematology consulted recommending GI scopes, will be performed by GI tomorrow. Positive stress test According to cardio symptoms likely due to anemia, no heart cath advised now. Echo ok Sob Could be due to anemia vs. CAD/heart disease Management as above. Chronic History of peripheral vascular disease History of aortic aneurysm Hyperlipidemia, Hypertension, Osteoarthritis (OA) All stable resume meds
--- NOTE | 2022-03-17 13:45 | P.PN ---
Subjective Progress Note Date: 03/17/22 Principal diagnosis: Anemia This is a pleasant 71-year-old female patient who follows in the office with Dr. Светлана Espino for coronary artery disease. She has a history of abdominal aortic aneurysm, peripheral arterial disease status post angioplasty of the left leg, hypertension and hyperlipidemia. Had a prior abnormal Lexiscan MPI in June 2021 which showed a partially reversible anterior apical defect. She was recently seen in the office on the and was complaining of increasing severity of her shortness of breath as well as an episode of chest discomfort that woke her. At that time she was recommended to undergo cardiac catheterization, she was scheduled this coming Monday. She had outpatient blood work done that showed a hemoglobin of 7.3 and was told by cardiology to come to the emergency department for further evaluation and possible blood transfusion. On arrival to the emergency department hemoglobin was 7.9 With a drop yesterday evening to 7.2 The patient denies any blood in her stool or black stool. She denies any abdominal pain, nausea or vomiting. Denies any previous history of peptic ulcer disease or EGD. Last colonoscopy 7-[address] done [address] Dr[address] Joana Espino, report not available. Patient has been on 81 mg of aspirin and Plavix daily, and also states that she takes 400 mg of ibuprofen 3 times a day for leg pain. Gastroenterology was consulted for possible GI bleed. Hematology also consulted for workup for anemia. They're recommending endoscopic evaluation for hypochromic anemia, patient was also found to have iron deficiency anemia. Currently getting IV iron replacement. Today's labs currently pending. 03/17/2022: Patient is seen and examined for follow-up for anemia. Patient states she had a bowel movement today still no signs of any black stool or blood in her stool. Denies any abdominal pain, nausea or vomiting. She's been on a clear liquid diet since this morning. Hemoglobin is 9.1 after 2 units of blood transfusion yesterday. She is getting IV iron. Hematology is following. Plan is for EGD and colonoscopy tomorrow. Prep tonight. Objective - Vital Signs Vital signs: Vital Signs Temp 97.9 F 03/17/22 08:00 Pulse 66 03/17/22 09:27 Resp 16 03/17/22 02:00 BP 152/68 03/17/22 09:27 Pulse Ox 93 L 03/17/22 08:00 FiO2 Intake & Output 03/16/22 03/17/22 03/17/22 18:59 06:59 18:59 Intake Total 1198 Balance 1198 Intake: Oral 888 Blood Product 310 Rc As-1 Unit 310 [id number] Other: # Voids 2 3 1 - Exam General appearance: The patient is alert, oriented, appears in no acute distress. HET: Head is normocephalic and atraumatic. Conjunctiva pink. Sclera anicteric. Neck: Supple without lymphadenopathy. Abdomen: Soft, nontender, nondistended with bowel sounds. No guarding or rigidity. Extremities: Normal skin color and turgor. No pedal edema Skin: No rashes, no jaundice Neurological: No focal deficits. Alert and oriented -3. - Labs CBC & Chem 7: 03/17/22 05:34 03/17/22 05:34 Labs: Abnormal Lab Results - Last 24 Hours (Table) 03/14/22 03/15/22 03/16/22 Range/Units 15:25 09:13 06:55 RBC 2.64 L (4.10-5.20) X 10*6/uL Hgb 6.4 L* (12.0-15.0) g/dL Hct 21.1 L (37.2-46.3) % MCV 79.9 L (80.0-97.0) fL MCH 24.2 L (27.0-32.0) pg MCHC 30.3 L (32.0-37.0) g/dL RDW 20.0 H (11.5-14.5) % Plt Count (140-440) X 10*3/uL MPV 9.3 L (9.5-12.2) fL Monocytes # (Manual) 0.05 L (0.20-1.00) X 10*3/uL Chloride (96-109) mmol/L Anion Gap (10.00-18.00) mmol/L Est GFR (CKD-EPI)NonAf (60.0-200.0) BUN/Creatinine Ratio (12.00-20.00) Ratio Calcium (8.7-10.3) mg/dL Albumin (PEP) 1.97 L (3.80-4.90) g/dL Beta Globulins 0.47 L (0.60-1.30) g/dL Gamma Globulins 0.22 L (0.70-1.50) g/dL Crossmatch See Detail 03/16/22 03/17/22 03/17/22 Range/Units 06:55 05:34 05:34 RBC 3.56 L (4.10-5.20) X 10*6/uL Hgb 9.1 L (12.0-15.0) g/dL Hct 28.8 L (37.2-46.3) % MCV (80.0-97.0) fL MCH 25.6 L (27.0-32.0) pg MCHC 31.6 L (32.0-37.0) g/dL RDW 18.2 H (11.5-14.5) % Plt Count 460 H (140-440) X 10*3/uL MPV (9.5-12.2) fL Monocytes # (Manual) (0.20-1.00) X 10*3/uL Chloride 110 H 109 H (96-109) mmol/L Anion Gap 8.00 L (10.00-18.00) mmol/L Est GFR (CKD-EPI)NonAf 56.2 L (60.0-200.0) BUN/Creatinine Ratio 20.50 H (12.00-20.00) Ratio Calcium 8.2 L (8.7-10.3) mg/dL Albumin (PEP) (3.80-4.90) g/dL Beta Globulins (0.60-1.30) g/dL Gamma Globulins (0.70-1.50) g/dL Crossmatch Assessment and Plan (1) Hypochromic anemia Narrative/Plan: 71-year-old female 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 Patient denies previous history of anemia, denies any previous blood transfusions. She has no history of peptic ulcer disease and no prior EGD. Last colonoscopy 78 years ago done by Dr. Espino however no report available at this time. Patient denies any signs or symptoms of GI blood loss such as black stool or bright red blood in her stool. Denies any rectal bleeding. Denies abdominal pain nausea or vomiting. Patient does have increased risk for possible upper GI blood loss due to chronic NSAID use. Patient does admit to using 400 mg of ibuprofen 3 times a day for leg pain. Patient is also on a low-dose aspirin as well as Plavix for coronary artery and peripheral arterial disease. Possible etiologies include peptic ulcer disease, AVM, gastritis, esophagitis or other possible etiologies. Patient has been seen by hematology who has done anemia workup and has shown patient to be iron deficient. They are recommending endoscopic evaluation to rule out possibility of GI blood loss is source of anemia. We'll proceed with EGD and colonoscopy on Monday. Current Visit: Yes Status: Chronic Priority: High Code(s): D50.9 - IRON DEFICIENCY ANEMIA, UNSPECIFIED SNOMED Code(s): 561692202 (2) Coronary artery disease Current Visit: Yes Status: Acute Code(s): I25.10 - ATHSCL HEART DISEASE OF [place] CORONARY ARTERY W/O ANG PCTRS SNOMED Code(s): 71959565 (3) Peripheral arterial disease Current Visit: Yes Status: Acute Code(s): I73.9 - PERIPHERAL VASCULAR DISEASE, UNSPECIFIED SNOMED Code(s): 307567217 Plan: 1. Continue symptomatic and supportive care 2. Daily CBC, transfuse for hemoglobin less than 7 3. Agree with iron replacement 4. Avoid NSAIDs 5. Hold aspirin and Plavix 6. Clear liquid diet, nothing by mouth after midnight 7. Start bowel prep this evening 8. Plan for EGD colonoscopy on Monday. Procedures discussed with patient including risks and benefits. She seemingly understands and is willing to proceed. Please obtain consent. Thank you for this consultation, we will continue to follow. Dr. Joana Espino I agree with the dictator's note, documented as a scribe by Irma Acevedo.
[2022-03-17] MEDS ORDERED: PEG 3350 (236 GM/BTL) + LYTES 4,000 ML BOTTLE PO ONE (18:00)
[2022-03-17] MEDS: ATORVASTATIN 40 MG TAB PO SCH (21:00)
[2022-03-17] MEDS: ACETAMINOPHEN TAB 325 MG TAB PO PRN (21:03)
[2022-03-18 09:27] LABS: Basophils # (A) 0.03 X 10*3/uL (0.00-0.10); Basophils % (A) 0.4 %; Eosinophils # (A) 0.58 X 10*3/uL (0.04-0.35); Eosinophils % (A) 7.8 %; HCT 30.1 % (37.2-46.3); HGB 9.4 g/dL (12.0-15.0); Immature Grans, Automated 0.3 %; Lymphocytes % (A) 36.3 %; MCHC 31.2 g/dL (32.0-37.0); MCV 80.1 fL (80.0-97.0); Mean Platelet Volume 9.1 fL (9.5-12.2); Monocytes # (A) 0.47 X 10*3/uL (0.20-1.00); Monocytes % (A) 6.3 %; NRBC Per 100 WBC 0 /100 WBCS (0.0-0.0); Neutrophils # (A) 3.63 X 10*3/uL (1.80-7.70); Neutrophils % (A) 48.9 %; Platelet Count 466 X 10*3/uL (140-440); RBC 3.76 X 10*6/uL (4.10-5.20); RDW 18.4 % (11.5-14.5); WBC 7.43 X 10*3/uL (4.50-10.00)
[2022-03-18 09:41] LABS: African American GFR (CKD) 85.4 (60.0-200.0); Anion Gap 8.5 mmol/L (10.00-18.00); BUN/Creat Ratio 12.5 Ratio (12.00-20.00); Calcium 8.6 mg/dL (8.7-10.3); Carbon Dioxide 24.5 mmol/L (20.0-27.5); Non-African American GFR(CKD) 73.7 (60.0-200.0); Potassium 3.7 mmol/L (3.5-5.5)
--- NOTE | 2022-03-18 09:49 | P.PN ---
Subjective Progress Note Date: 03/18/22 HISTORY OF PRESENT ILLNESS: This is a pleasant 71-year-old female patient who follows in the office with Dr. Greer. She has a history of abdominal aortic aneurysm, peripheral arterial disease status post angioplasty of the left leg, hypertension and hyperlipidemia. Had a prior abnormal Lexiscan MPI in June 2021 which showed a partially reversible anterior apical defect. She was recently seen in the office on the and was complaining of increasing severity of her shortness of breath as well as an episode of chest discomfort that woke her in the middle and 8. At that time she was recommended to undergo cardiac catheterization and was given a slip for blood work. Labs showed the patient to be anemic with a hemoglobin of 7.3 and she was recommended by our office to go to the emergency department for further evaluation. On arrival to the emergency department he moglobin was 7.9. We were asked to the patient in consultation for the shortness of breath. Over the last year she has been complaining of some fatigue, shortness of breath with activity as well as bilateral lower extremity edema. His been seen and evaluated by hematology they're recommending further workup with endoscopy as the patient has been found to be iron deficient and has been on dual antiplatelet therapy as well as taking ibuprofen for leg pain. Her last colonoscopy was 7 or 8 years ago and she's never had an EGD. She is currently getting iron infusions. Upon examination she is resting comfortably in bed. Her blood pressure has been elevated. She continues to complain of sig nificant dyspnea on exertion just with walking to the bathroom. Continues to have lower extremity edema. Her feel quite tired. Upon review of the records from our office most recent echocardiogram done in July of this year showed normal LV systolic function with mild MR and mild TR. Most recent hemoglobin done yesterday was 7.2. Stool was negative for occult blood. 03/17/2022 Patient examined this morning at the bedside. Patient denies chest pain or pressure. She reports shortness of breath with exertion this morning. She reports improvement in her lower extremity edema. Denies dark or bloody stools. She is scheduled for endoscopy tomorrow. Echocardiogram completed revealing ejection fraction 55-60%, mild MR, mild TR. Patient's blood pressure was elevated this morning with a systolic in the 160s. Patient's blood pressure has improved with medications to a systolic of 152. 03/18/2022 Patient examined this morning at the bedside. Patient denies chest pain or pressure. She reports improvement in her shortness of breath. She is scheduled for endoscopy today. Patient's blood pressure remains elevated this morning. PHYSICAL EXAM: VITAL SIGNS: Reviewed. GENERAL: Well-developed in no acute distress. NECK: Supple. No JVD or thyromegaly LUNGS: Respirations even and unlabored. Lungs essentially clear to auscultation bilaterally. HEART: Regular rate and rhythm. S1 and S2 heard. Systolic murmur noted. EXTREMITIES: Normal range of motion. No clubbing or cyanosis. Peripheral pulses intact. Trace lower extremity edema ASSESSMENT: #1 iron deficiency anemia #2 symptoms of worsening dyspnea on exertion and lower extremity edema, likely secondary to anemia #3 hypertension, uncontrolled #4 PAD status post angioplasty #5 AAA PLAN: Continue current cardiac medications Increase losartan to 100 mg daily. Monitor kidney function Patient scheduled for endoscopy today Patient is currently stable from a cardiac standpoint. We will sign off. Please reconsult if needed. Nurse practitioner note has been reviewed by physician. Signing provider agrees with the documented findings, assessment, and plan of care. Objective - Vital Signs Vital signs: Vital Signs Temp 98.0 F 03/18/22 07:39 Pulse 80 03/18/22 07:39 Resp 17 03/18/22 07:39 BP 176/87 03/18/22 07:39 Pulse Ox 95 03/18/22 07:39 FiO2 Intake & Output 03/17/22 03/18/22 03/18/22 18:59 06:59 18:59 Other: # Voids 1 1 # Bowel Movements 3 - Labs CBC & Chem 7: 03/18/22 05:44 03/18/22 05:44 Labs: Abnormal Lab Results - Last 24 Hours (Table) 03/18/22 03/18/22 Range/Units 05:44 05:44 RBC 3.76 L (4.10-5.20) X 10*6/uL Hgb 9.4 L (12.0-15.0) g/dL Hct 30.1 L (37.2-46.3) % MCH 25.0 L (27.0-32.0) pg MCHC 31.2 L (32.0-37.0) g/dL RDW 18.4 H (11.5-14.5) % Plt Count 466 H (140-440) X 10*3/uL MPV 9.1 L (9.5-12.2) fL Eosinophils # 0.58 H (0.04-0.35) X 10*3/uL Chloride 110 H (96-109) mmol/L Anion Gap 8.50 L (10.00-18.00) mmol/L Calcium 8.6 L (8.7-10.3) mg/dL
[2022-03-18] MEDS: LOSARTAN 50 MG TAB PO SCH (10:03)
[2022-03-18] MEDS: SODIUM FERRIC GLUCONAT-SUCROSE 125 MG in SODIUM CHLORIDE 0.9% 100 ML IVPB SCH (10:03)
[2022-03-18] MEDS: METOPROLOL SUCCINATE (ER) 50 MG TAB.ER.24H PO SCH (10:03)
[2022-03-18] MEDS: amLODIPine 10 MG TAB PO SCH (10:08)
[2022-03-18] MEDS: CYANOCOBALAMIN 500 MCG TAB PO SCH (10:08)
[2022-03-18] MEDS: ISOSORBIDE MONONITRATE ER 30 MG TAB.ER.24H PO SCH (10:08)
[2022-03-18] MEDS: FERROUS SULFATE 325 MG TAB PO SCH ×2 (12:49→17:52)
--- NOTE | 2022-03-18 14:33 | P.PN ---
Subjective Progress Note Date: 03/18/22 Principal diagnosis: sob Patient is feeling better today. He denied having significant shortness of breath. The weakness has improved. No fevers or chills. No nausea or vomit ing. Objective - Vital Signs Vital signs: Vital Signs Temp 98.0 F 03/18/22 07:39 Pulse 69 03/18/22 08:15 Resp 17 03/18/22 08:15 BP 176/87 03/18/22 07:39 Pulse Ox 95 03/18/22 07:39 FiO2 Intake & Output 03/17/22 03/18/22 03/18/22 18:59 06:59 18:59 Other: # Voids 1 1 # Bowel Movements 3 - Exam Constitutional: No acute distress, conversant, pleasant Eyes:Anicteric sclerae, moist conjunctiva, no lid-lag, PERRLA, ENMT: Oropharynx clear, no erythema, exudates Neck: Supple, FROM, no masses, or JVD, No carotid bruits, No thyromegaly Lungs: Clear to auscultation, Clear to percussion, Normal respiratory effort, no accessory muscle use Cardiovascular: Heart regular in rate and rhythm, No murmurs, gallops, or rubs, No peripheral edema Abdominal: Soft, Nontender, no guarding, rebound or rigidity, Normoactive bowel sounds, No hepatomegaly, No splenomegaly, No palpable mass Skin: Normal temperature, tone, texture, turgor, no induration, No subcutaneous nodules, No rash, lesions, No ulcers Extremities: No digital cyanosis, No clubbing, Pedal pulses intact and symmetrical, Radial pulses intact and symmetrical, No calf tenderness Psychiatric: Alert and oriented to person, place and time, appropriate affect, intact judgement Neuro: Muscles Strength 5/5 in all 4 extremities, Sensation to light touch grossly present throughout, Cranial nerves II-XII grossly intact, no focal sensory deficits - Labs CBC & Chem 7: 03/18/22 05:44 03/18/22 05:44 Labs: Abnormal Lab Results - Last 24 Hours (Table) 03/18/22 03/18/22 Range/Units 05:44 05:44 RBC 3.76 L (4.10-5.20) X 10*6/uL Hgb 9.4 L (12.0-15.0) g/dL Hct 30.1 L (37.2-46.3) % MCH 25.0 L (27.0-32.0) pg MCHC 31.2 L (32.0-37.0) g/dL RDW 18.4 H (11.5-14.5) % Plt Count 466 H (140-440) X 10*3/uL MPV 9.1 L (9.5-12.2) fL Eosinophils # 0.58 H (0.04-0.35) X 10*3/uL Chloride 110 H (96-109) mmol/L Anion Gap 8.50 L (10.00-18.00) mmol/L Calcium 8.6 L (8.7-10.3) mg/dL Assessment and Plan Plan: Chronic anemia, normocytic Negative fecal occult blood tests done in the emergency department Hold aspirin and plavix for now Iron profile consistent with deficiency. Replaced iron with iv route, start oral iron. vitamin B12, on the low end of normal, continue B12 replacement Hemoglobin went up appropriately with blood transfusion, she is s/p 1 unit. Hematology consulted recommending GI scopes, will be performed by GI today. Positive stress test According to cardio symptoms likely due to anemia, no heart cath advised now. Losartan increased to 100 mg daily by cardiology, today cardiology signed off. Echo ok Sob Could be due to anemia vs. CAD/heart disease Management as above. Chronic History of peripheral vascular disease History of aortic aneurysm Hyperlipidemia, Hypertension, Osteoarthritis (OA) All stable resume meds
[2022-03-18] MEDS ORDERED: PROPOFOL 10 MG/ML 20 ML VIAL IV ONE (16:14)
[2022-03-18] MEDS ORDERED: LIDOCAINE 2% INJ 20 MG/ML (2 ML VIAL) ONE (16:14)
[2022-03-18] MEDS ORDERED: IV FLUID CONTINUATION 1,000 ML IV ONE ×2 (16:23)
--- NOTE | 2022-03-18 16:36 | P.PCN ---
Date of Procedure: 03/18/22 Procedure(s) Performed: Brief history: Patient is a pleasant 71-year-old white female admitted hospital with symptomatically management hemoglobin of 7.2 g/dL that was noted on routine lab testing. Her cardiac catheterization. Iron indices were consistent with iron deficiency anemia. She is hence scheduled for an elective upper endoscopy as well as colonoscopy to evaluate further. Procedure performed: Esophagogastroduodenoscopy with biopsy Colonoscopy Preoperative diagnosis: Iron deficiency anemia. Anesthesia: MAC Procedure: After informed consent was obtained from the patient was brought into the endoscopy unit and IV sedation was administered by anesthesia under continuous monitoring. Initially upper endoscopy was done. The Olympus GF 160 video endoscope was inserted inserted into the mouth and esophagus intubated without any difficulty and was gradually advanced into the stomach and duodenum and carefully examined. The bulb and second part of the duodenum appeared normal. Biopsies were done from the duodenum to rule out celiac disease. The scope was then withdrawn into the stomach adequately insufflated with air and upon careful examination the antrum scattered erosions and biopsies were done from this area. The body, cardia and fundus appeared normal. The scope was then withdrawn into the esophagus. The GE junction was located at 40 cm to the incisors. small sliding type hiatal hernia noted. It appeared regular with no erythema erosions or ulcerations. Rest of the esophagus appeared normal. Patient tolerated the procedure well. At this time the patient continued to remain sedation. Initial digital rectal examination was normal. Olympus CF 160 video colonoscope was then inserted into the rectum and gradually advanced to the cecum without any difficulty. Careful examination was performed as the scope was gradually being withdrawn. The prep was excellent. The cecum, ascending colon, transverse colon, descending colon, sigmoid colon and rectum appeared normal. Retroflexion was performed in the rectum and no lesions were noted. Patient tolerated the procedure well. Impression: 1. Upper endoscopy revealed antral erosive gastritis and a small hiatal hernia but no evidence of peptic ulcer disease or esophagitis 2. Colonoscopy was within normal limits with no evidence of colorectal neoplasia Recommendations: Findings of this examination were discussed with the patient as well as her family. she was advised to follow with the biopsy results. Start iron supplements. Monitor CBC periodically. If she continues to have persistent iron deficiency anemia, she may be a candidate for small bowel capsule endoscopy an outpatient basis
[2022-03-18] MEDS: ATORVASTATIN 40 MG TAB PO SCH (21:51)
[2022-03-18] MEDS: ACETAMINOPHEN TAB 325 MG TAB PO PRN (21:52)
[2022-03-19] MEDS: METOPROLOL SUCCINATE (ER) 50 MG TAB.ER.24H PO SCH (07:54)
[2022-03-19] MEDS: CYANOCOBALAMIN 500 MCG TAB PO SCH (07:54)
[2022-03-19] MEDS: amLODIPine 10 MG TAB PO SCH (07:54)
[2022-03-19] MEDS: FERROUS SULFATE 325 MG TAB PO SCH ×3 (07:54→15:21)
[2022-03-19] MEDS: ISOSORBIDE MONONITRATE ER 30 MG TAB.ER.24H PO SCH (07:54)
[2022-03-19] MEDS: FOLIC ACID 1 MG TAB PO SCH (07:55)
[2022-03-19] MEDS: LOSARTAN 50 MG TAB PO SCH (07:55)
[2022-03-19] MEDS ORDERED: ONDANSETRON 4 MG/2 ML VIAL IVP PRN (09:53)
[2022-03-19 11:04] LABS: Glucose,Whole Blood 78 mg/dL (70-110)
[2022-03-19] MEDS: SODIUM FERRIC GLUCONAT-SUCROSE 125 MG in SODIUM CHLORIDE 0.9% 100 ML IVPB SCH (11:09)
[2022-03-19 11:32] LABS: Basophils # (A) 0.02 X 10*3/uL (0.00-0.10); Basophils % (A) 0.2 %; Eosinophils # (A) 0.35 X 10*3/uL (0.04-0.35); Eosinophils % (A) 4.1 %; HCT 27.8 % (37.2-46.3); Immature Grans, Automated 0.5 %; Lymphocytes # (A) 1.98 X 10*3/uL (0.90-5.00); Lymphocytes % (A) 23.1 %; MCH 25.7 pg (27.0-32.0); MCHC 32.4 g/dL (32.0-37.0); MCV 79.4 fL (80.0-97.0); Mean Platelet Volume 9.5 fL (9.5-12.2); Monocytes # (A) 0.77 X 10*3/uL (0.20-1.00); NRBC Per 100 WBC 0 /100 WBCS (0.0-0.0); Neutrophils # (A) 5.42 X 10*3/uL (1.80-7.70); Neutrophils % (A) 63.1 %; Platelet Count 398 X 10*3/uL (140-440); RDW 18.6 % (11.5-14.5); WBC 8.58 X 10*3/uL (4.50-10.00)
--- NOTE | 2022-03-19 15:33 | P.PN ---
Subjective Progress Note Date: 03/19/22 Principal diagnosis: sob Patient is feeling nauseous, she threw up 4 times already today. She thinks the iron infusion might be causing that. She is feeling better now after zofran. Objective - Vital Signs Vital signs: Vital Signs Temp 99.4 F 03/19/22 14:00 Pulse 85 03/19/22 14:00 Resp 18 03/19/22 14:00 BP 126/67 03/19/22 14:00 Pulse Ox 92 L 03/19/22 14:00 FiO2 Intake & Output 03/18/22 03/19/22 03/19/22 18:59 06:59 18:59 Intake Total 200 Balance 200 Intake: IV 200 Other: Voiding Method Toilet # Voids 2 - Exam Constitutional: No acute distress, conversant, pleasant Eyes:Anicteric sclerae, moist conjunctiva, no lid-lag, PERRLA, ENMT: Oropharynx clear, no erythema, exudates Neck: Supple, FROM, no masses, or JVD, No carotid bruits, No thyromegaly Lungs: Clear to auscultation, Clear to percussion, Normal respiratory effort, no accessory muscle use Cardiovascular: Heart regular in rate and rhythm, No murmurs, gallops, or rubs, No peripheral edema Abdominal: Soft, Nontender, no guarding, rebound or rigidity, Normoactive bowel sounds, No hepatomegaly, No splenomegaly, No palpable mass Skin: Normal temperature, tone, texture, turgor, no induration, No subcutaneous nodules, No rash, lesions, No ulcers Extremities: No digital cyanosis, No clubbing, Pedal pulses intact and symmetrical, Radial pulses intact and symmetrical, No calf tenderness Psychiatric: Alert and oriented to person, place and time, appropriate affect, intact judgement Neuro: Muscles Strength 5/5 in all 4 extremities, Sensation to light touch grossly present throughout, Cranial nerves II-XII grossly intact, no focal sensory deficits - Labs CBC & Chem 7: 03/19/22 06:28 03/18/22 05:44 Labs: Abnormal Lab Results - Last 24 Hours (Table) 03/19/22 Range/Units 06:28 RBC 3.50 L (4.10-5.20) X 10*6/uL Hgb 9.0 L (12.0-15.0) g/dL Hct 27.8 L (37.2-46.3) % MCV 79.4 L (80.0-97.0) fL MCH 25.7 L (27.0-32.0) pg RDW 18.6 H (11.5-14.5) % Assessment and Plan Plan: Chronic anemia, normocytic Negative fecal occult blood tests done in the emergency department Hold aspirin and plavix for now Iron profile consistent with deficiency. Replaced iron with iv route, start oral iron. vitamin B12, on the low end of normal, continue B12 replacement Hemoglobin went up appropriately with blood transfusion, she is s/p 1 unit. Hematology consulted recommending GI scopes, which were done by GI, EGD showed erosive antral gastritis, no ulcers. Colonoscopy was not revealing. Positive stress test According to cardio symptoms likely due to anemia, no heart cath advised now. Losartan increased to 100 mg daily by cardiology, today cardiology signed off. Echo ok Sob Could be due to anemia vs. CAD/heart disease Management as above. Chronic History of peripheral vascular disease History of aortic aneurysm Hyperlipidemia, Hypertension, Osteoarthritis (OA) All stable resume meds
[2022-03-19] MEDS: ATORVASTATIN 40 MG TAB PO SCH (20:04)
[2022-03-19] MEDS: ACETAMINOPHEN TAB 325 MG TAB PO PRN (20:04)
[2022-03-20] MEDS: CYANOCOBALAMIN 500 MCG TAB PO SCH (07:39)
[2022-03-20] MEDS: ISOSORBIDE MONONITRATE ER 30 MG TAB.ER.24H PO SCH (07:40)
[2022-03-20] MEDS: FOLIC ACID 1 MG TAB PO SCH (07:40)
[2022-03-20] MEDS: FERROUS SULFATE 325 MG TAB PO SCH (07:40)
[2022-03-20] MEDS: LOSARTAN 50 MG TAB PO SCH (07:40)
[2022-03-20] MEDS: amLODIPine 10 MG TAB PO SCH (07:40)
[2022-03-20] MEDS: METOPROLOL SUCCINATE (ER) 50 MG TAB.ER.24H PO SCH (07:40)
[2022-03-20] MEDS: SODIUM FERRIC GLUCONAT-SUCROSE 125 MG in SODIUM CHLORIDE 0.9% 100 ML IVPB SCH (07:41)
[2022-03-20 08:07] VITALS: BP 146/69; PULSE 69; RESP 18; TEMP 98.8
[2022-03-20 09:02] LABS: Anisocytosis Slight; Basophils % (A) 0 %; Eosinophils # (A) 0.2 k/uL (0-0.7); Eosinophils % (A) 1 %; HCT 25.9 % (34.0-46.0); HGB 8.3 gm/dL (11.4-16.0); Hypochromasia Moderate; Lymphocytes # (A) 1.4 k/uL (1.0-4.8); Lymphocytes % (A) 9 %; MCH 26.6 pg (25.0-35.0); MCHC 32.2 g/dL (31.0-37.0); MCV 82.9 fL (80.0-100.0); Mean Platelet Volume 7.5; Microcytosis Slight; Monocytes # (A) 0.7 k/uL (0-1.0); Monocytes % (A) 4 %; Neutrophils # (A) 13.4 k/uL (1.3-7.7); Neutrophils % (A) 85 %; Platelet Count 263 k/uL (150-450); Poikilocytosis Slight; RBC 3.13 m/uL (3.80-5.40); RDW 19.4 % (11.5-15.5); WBC 15.8 k/uL (3.8-10.6)
[2022-03-20 09:09] LABS: African American GFR (CKD) 64 (>60 ml/min/1.73 sqM); Anion Gap 4 mmol/L; Blood Urea Nitrogen 13 mg/dL (7-17); Calcium 7.7 mg/dL (8.4-10.2); Carbon Dioxide 26 mmol/L (22-30); Chloride 107 mmol/L (98-107); Glucose 96 mg/dL (74-99); Non-African American GFR(CKD) 55 (>60 ml/min/1.73 sqM); Potassium 3.7 mmol/L (3.5-5.1); Sodium 137 mmol/L (137-145)
--- NOTE | 2022-03-20 10:27 | P.DS ---
Providers Date of admission: 03/14/22 17:34 Expected date of discharge: 03/20/22 Attending physician: Ramon Bustos MD Consults: 03/14/22 17:34 Consult Physician Urgent Consulting Provider: Galina Robles Consult Reason/Comments: Anemia Do you want consulting provider notified?: Yes 03/15/22 15:05 Consult Physician Routine Consulting Provider: Brinda Espino Consult Reason/Comments: ? gi bleed Do you want consulting provider notified?: Yes Primary care physician: Stated None Hospital Course: 71-year-old female with history of peripheral vascular disease status post stenting in the left leg, aortic aneurysm, presents emergency Department because her hemoglobin is low. Patient states she was seen in Dr. Espino for positive stress test that was done outpatient due to sob and she is supposed to get a catheterization on Monday. Patient states she's on Plavix and aspirin at home. Patient states Dr. Greer did some blood work today and her hemoglobin was 7 so he sent her in to be evaluated. She has been having progressively worsening shortness of breath and bilateral leg swelling over the past several months. He denied having dizziness. She feels weak. No nausea or vomiting. No hematochezia or melena, or hematemesis. No recent illness. Patient denies any fever chills. Evaluation in the emergency department revealed WBC 6.5, hemoglobin 7.9, hemato crit 25, platelet count 560, sodium 135, potassium 4.1, chloride 106, bicarbonate 21, BUN 9, creatinine 1. Rest of labs okay. EKG normal sinus rhythm without acute ischemic changes. Patient was admitted, hemoglobin was monitored. It was 7.9 on admission, drifted down to 6.4, she was transfused 1 unit of packed red blood cells.. Patient was seen by GI as well as cardiology. GI recommended upper and lower scope. EGD showed erosive gastritis. Colonoscopy was normal. Patient takes aspirin as well as Plavix in the past. However no clear evidence of coronary artery disease is diagnosed for her yet as she was not able to have any heart cath. She was seen by cardiology here who did not want to do cardiac catheterization while inpatient. Iron profile showed severe iron deficiency. B12 was on the low end of normal but methylmalonic acid was normal. She was given IV iron, then was started on oral. Upon discharge I will continue her aspirin and discontinue Plavix for now. She will need to follow up with cardiology in the office to look into the risks and benefits of Plavix treatment. In addition she will be started on PPI for erosive gastritis. Shortness of breath has improved compared to admission. Her hemoglobin is currently stable upon discharge. She'll be discharged home in stable condition. Time for discharge 35 minutes. Plan - Discharge Summary Discharge Rx Participant: No New Discharge Prescriptions: New Losartan [Cozaar] 100 mg PO DAILY 30 Days #30 tab Ferrous Sulfate [Iron (65 MG Elemental)] 325 mg PO TID-W/MEALS 30 Days #90 tab Pantoprazole Sodium [Protonix] 40 mg PO DAILY 30 Days #30 tab Acetaminophen Tab [Tylenol] 650 mg PO Q6HR PRN tab PRN Reason: Fever And/ Or Pain Aspirin 81 mg PO DAILY 90 Days #90 tab Continue Simvastatin 40 mg PO HS amLODIPine BESYLATE 10 mg PO DAILY Isosorbide Mononitrate ER [Imdur] 30 mg PO DAILY Metoprolol Succinate (ER) [Toprol XL] 50 mg PO DAILY Discontinued Aspirin [Adult Low Dose Aspirin EC] 81 mg PO DAILY Clopidogrel [Plavix] 75 mg PO DAILY #90 tab Discharge Medication List Simvastatin 40 mg PO HS 01/30/20 [History] amLODIPine BESYLATE 10 mg PO DAILY 01/30/20 [History] Isosorbide Mononitrate ER [Imdur] 30 mg PO DAILY 03/14/22 [History] Metoprolol Succinate (ER) [Toprol XL] 50 mg PO DAILY 03/14/22 [History] Acetaminophen Tab [Tylenol] 650 mg PO Q6HR PRN tab 03/20/22 [Rx] Aspirin 81 mg PO DAILY 90 Days #90 tab 03/20/22 [Rx] Ferrous Sulfate [Iron (65 MG Elemental)] 325 mg PO TID-W/MEALS 30 Days #90 tab 03/20/22 [Rx] Losartan [Cozaar] 100 mg PO DAILY 30 Days #30 tab 03/20/22 [Rx] Pantoprazole Sodium [Protonix] 40 mg PO DAILY 30 Days #30 tab 03/20/22 [Rx] Follow up Appointment(s)/Referral(s): Brinda Espino MD [STAFF PHYSICIAN] - 1 Week None,Stated [Primary Care Provider] - 1-2 days Patient Instructions/Handouts: Anemia (DC)
--- NOTE | 2022-03-22 21:32 | CDI ---
Documentation Clarification Form Date: 03/22/2022 09:17:53 PM From: Cassandra Copeland Phone: Admit Date: 03/14/2022 05:34:00 PM Patient Name: Henny Camargo Visit Number: [id number] Discharge Date: 03/20/2022 11:48:00 AM ATTENTION: The Clinical Documentation Specialists (CDI) and [facility] Coding Staff appreciate your assistance in clarifying documentation. Please respond to the clarification below the line at the bottom and electronically sign. The CDI & [facility] Coding staff will review the response and follow-up if needed. Please note: Queries are made part of the Legal Health Record. If you have any questions, please contact the author of this message via ITS. Dr. Ramon Bustos The final diagnosis of the pathology report states mild intraepithelial lymphocytosis. Clinical correlation with celiac disease serology studies suggested, as indicated. Coding guidelines do not allow coding professionals to code based on pathology results; therefore, clarification is requested. History/risk factors: 71yo F, CASEY, gastritis, 1 unit PRBC, HTN, AAA, hiatal hernia, PVD, RLS Clinical Indicators: antral erosive gastritis and a small hiatal hernia but no evidence of peptic ulcer disease or esophagitis Treatment: EGD W Bx and colonoscopy; upon discharge I will continue her aspirin and discontinue Plavix for now. She will need to follow up with cardiology in the office to look into the risks and benefits of Plavix treatment. In addition she will be started on PPI for erosive gastritis. Shortness of breath has improved compared to admission. Her hemoglobin is currently stable upon discharge. Shell be discharged home in stable condition. Please clarify if you agree with the pathology report diagnosis of [insert result/diagnosis]: [ ] Yes, lymphocytosis and celiac disease [ ] No, lymphocytosis and celiac disease [ ] Other (please specify) [ ] Unable to determine (Template Last Revised: September 2020) No, lymphocytosis and celiac disease MTDD
[2022-03-23 10:15] LABS: Free Kappa Lt Chain Qnt, Serum 2.14 mg/dL (0.33-1.94)
[2022-03-23 10:16] LABS: Free Lambda Lt Chain Qnt, Seru 1.71 mg/dL (0.57-2.63)
== END 2022-03-20 11:48 | disposition home or self-care (01) | DRG 811 ==
LOC: EC 12:56 → 4SSUR 17:34
PROVIDERS: ADMIT Internal Medicine; ATTEND Internal Medicine
PROC: 30233N1 Transfusion of Nonautologous Red Blood Cells into Peripheral Vein, Percutaneous Approach (ICD-10-PCS; 2022-03-16)
PROC: 0DJD8ZZ Inspection of Lower Intestinal Tract, Via Natural or Artificial Opening Endoscopic (ICD-10-PCS; 2022-03-18)
PROC: 0DB98ZX Excision of Duodenum, Via Natural or Artificial Opening Endoscopic, Diagnostic (ICD-10-PCS; principal; 2022-03-18 14:20)
PROC: 0DB78ZX Excision of Stomach, Pylorus, Via Natural or Artificial Opening Endoscopic, Diagnostic (ICD-10-PCS; 2022-03-18 14:20)
DX: D50.0 Iron deficiency anemia secondary to blood loss (chronic) (principal); K29.61 Other gastritis with bleeding; I10 Essential (primary) hypertension; I71.9 Aortic aneurysm of unspecified site, without rupture; I73.9 Peripheral vascular disease, unspecified; G25.81 Restless legs syndrome; I71.4 Abdominal aortic aneurysm, without rupture; Z95.820 Peripheral vascular angioplasty status with implants and grafts; M19.90 Unspecified osteoarthritis, unspecified site; E78.5 Hyperlipidemia, unspecified; R26.2 Difficulty in walking, not elsewhere classified; K29.70 Gastritis, unspecified, without bleeding; K44.9 Diaphragmatic hernia without obstruction or gangrene; R01.1 Cardiac murmur, unspecified; E53.8 Deficiency of other specified B group vitamins; M79.89 Other specified soft tissue disorders; R60.0 Localized edema; I25.10 Atherosclerotic heart disease of native coronary artery without angina pectoris; R07.89 Other chest pain; M79.606 Pain in leg, unspecified; R53.1 Weakness; Z79.82 Long term (current) use of aspirin; Z79.02 Long term (current) use of antithrombotics/antiplatelets; Z87.891 Personal history of nicotine dependence; Z79.1 Long term (current) use of non-steroidal anti-inflammatories (NSAID); Z79.899 Other long term (current) drug therapy; Z98.41 Cataract extraction status, right eye; Z98.42 Cataract extraction status, left eye
CPT/HCPCS: 36415; 43239; 45378; 80048; 80053; 82272; 82607; 82728; 82746; 83010; 83540; 83550; 83615; 83735; 83883; 83921; 84100; 84165; 84466; 84484; 85025; 85027; 85045; 85610; 85730; 86038; 86334; 86431; 86850; 86900; 86901; 86920; 88305; 93005; 93306; 96360; 96361; 99284

== ENCOUNTER → 2022-04-07 | Outpatient (CLI) | payer MEDICARE, BC ==
[2022-04-07 14:35] LABS: HCT 32.6 % (37.2-46.3); HGB 10.1 g/dL (12.0-15.0); MCH 26.6 pg (27.0-32.0); MCV 85.8 fL (80.0-97.0); Mean Platelet Volume 10.1 fL (9.5-12.2); NRBC Per 100 WBC 0 /100 WBCS (0.0-0.0); Platelet Count 298 X 10*3/uL (140-440); RDW 20.8 % (11.5-14.5); WBC 6.23 X 10*3/uL (4.50-10.00)
== END | disposition home or self-care (01) ==
LOC: LABWHC1 09:08
PROVIDERS: ATTEND Nurse Practitioner Family
DX: R06.02 Shortness of breath (principal)
CPT/HCPCS: 36415; 85027

== ENCOUNTER → 2022-04-08 | Day surgery (SDC) | payer MEDICARE, BC ==
[~2022-04-08] MED LIST: ALPRAZolam 0.25 MG TAB PO PRN; ALPRAZolam 0.5 MG TAB PO PRN; ASPIRIN 325 MG TAB PO ONE; ATORVASTATIN 80 MG TAB PO ONE; HEPARIN SODIUM 1,000 UN/ML (10ML VL) IVP ONE; HEPARIN SODIUM 1,000 UN/ML (10ML VL) ONE; HEPARIN SODIUM,PORCINE 10,000 UNIT in SODIUM CHLORIDE 0.9% 1,000 ML IRRIGATION PRN; HEPARIN SODIUM,PORCINE 2,500 UNIT in SODIUM CHLORIDE 0.9% 250 ML IRRIGATION PRN; IOPAMIDOL-370 125ML BTL INJ ONE; LIDOCAINE 1% INJ 10MG/ML (30 ML VIAL-PF) SQ ONE; MIDAZOLAM 2 MG/2 ML VIAL IVP ONE; NITROGLYCERIN SL TABS 0.4 MG TAB SUBLINGUAL PRN; SODIUM CHLORIDE 0.9% 1,000 ML in EMPTY BAG 1 BAG IV ONE; VERAPAMIL 2.5 MG/ML 2 ML AMP INTRAARTER ONE; VERAPAMIL 2.5 MG/ML 2 ML AMP ONE; fentaNYL (PF) 50 MCG/ML 2 ML AMP IVP ONE; fentaNYL (PF) 50 MCG/ML 2 ML AMP ONE
[2022-04-08 07:01] VITALS: RESP 16; TEMP 98.1
--- NOTE | 2022-04-08 08:31 | CC ---
CARDIAC CATHETERIZATION REPORT INDICATIONS: Exertional shortness of breath. PROCEDURE NOTE: After obtaining informed consent, left heart catheterization and coronary angiogram were performed via the right radial artery using standard Kemal catheters. The patient tolerated the procedure well without any obvious immediate complications. The patient received moderate conscious sedation, total sedation time was 20 minutes. I obtained right radial artery access using a micropuncture needle with Seldinger technique. A 6-Hungarian sheath was introduced into the right radial artery under fluoroscopic guidance, wires and catheter were floated into the ascending aorta where they were exchanged. The patient received 3000 units of IV heparin and 5 mg of verapamil per protocol and a TR band was used for hemostasis at the end of the procedure. FINDINGS: 1. Hemodynamics: Left ventricular end-diastolic pressure is 14-16 mm, there is no significant gradient across the aortic valve. 2. Left ventriculogram: Left ventriculogram is not performed. ANGIOGRAPHIC DATA: Right coronary artery: Right coronary artery is a large dominant vessel that is heavily calcified, shows moderate nonobstructive disease throughout, especially in the mid RCA, but there are no focal hemodynamically significant lesions. Left main coronary artery is a normal-sized vessel and is free of stenosis, divides into LAD and nondominant circumflex coronary artery. Both the vessels are heavily calcified but free of focal stenotic lesions. CONCLUSIONS: Diffuse 3-vessel coronary artery disease without focal hemodynamically significant lesion. PLAN: The patient will be treated with optimal medical therapy with aspirin, nitrates, beta blockers and statins and continue to work aggressively on risk factor modification. MMODL / IJN: [id number] /
[2022-04-08 15:40] VITALS: BP 121/67
[2022-04-08 15:52] VITALS: PULSE 55
== END ==
LOC: CATHCVL 05:46
PROVIDERS: ATTEND Internal Medicine Cardiovascular Disease
DX: I25.10 Atherosclerotic heart disease of native coronary artery without angina pectoris (principal); R06.02 Shortness of breath; I10 Essential (primary) hypertension; R94.39 Abnormal result of other cardiovascular function study; R07.2 Precordial pain; Z87.891 Personal history of nicotine dependence; Z82.49 Family history of ischemic heart disease and other diseases of the circulatory system; Z79.82 Long term (current) use of aspirin
CPT/HCPCS: 93458; C1769; C1894; J2250; J2001; J3010; J1644; Q9967

== ENCOUNTER → 2022-11-04 | Outpatient (CLI) | payer MEDICARE, BC ==
[2022-11-04 15:15] LABS: HCT 38.1 % (37.2-46.3); HGB 11.7 g/dL (12.0-15.0); MCH 29.2 pg (27.0-32.0); MCHC 30.7 g/dL (32.0-37.0); Mean Platelet Volume 10.3 fL (9.5-12.2); NRBC Per 100 WBC 0 /100 WBCS (0.0-0.0); Platelet Count 301 X 10*3/uL (140-440); RBC 4.01 X 10*6/uL (4.10-5.20); RDW 12.7 % (11.5-14.5); WBC 8.58 X 10*3/uL (4.50-10.00)
[2022-11-04 15:46] LABS: ALT 20 U/L (8-44); AST 23 U/L (13-35); Chol/HDL Ratio 2.86 Ratio; LDL Cholesterol,Calculated 82.4 mg/dL (0.0-131.0)
== END | disposition home or self-care (01) ==
LOC: LABWHC1 08:47
PROVIDERS: ATTEND Internal Medicine Cardiovascular Disease
DX: E78.2 Mixed hyperlipidemia (principal)
CPT/HCPCS: 36415; 80061; 84450; 84460; 85027

== ENCOUNTER → 2023-11-23 | Outpatient (CLI) | payer MEDICARE, BC ==
[2023-11-23 14:10] LABS: African American GFR (CKD) 69 (>60 ml/min/1.73 sqM); Blood Urea Nitrogen 28 mg/dL (7-17); Non-African American GFR(CKD) 60 (>60 ml/min/1.73 sqM)
--- NOTE | 2023-11-23 15:50 | CT ---
EXAMINATION TYPE: CT angio abdomen CT DLP: 432.7 mGycm, Automated exposure control for dose reduction was used. DATE OF EXAM: 11/23/2023 3:21 PM COMPARISON: None CLINICAL INDICATION:Female, 73 years old with history of I71.40 ABDOMINAL AORTIC ANEURYSM, WITHOUT RU PTURE,; PHH, aortic aneurysm TECHNIQUE: Multiple thin slice sub-millimeter images were obtained after administration of contrast. 3-D reconstructed images and maximum intensity projection images were obtained. CT angio abdomen CT Contrast: Contrast used:100 mL of Isovue 370 with IV Contrast, Oral contrast used: None FINDINGS: CTA Abdomen and pelvis: There is atherosclerosis of the abdominal aorta. The inferior portion of the thoracic descending abdominal aorta measures within normal limits at 26 mm. No evidence fracture mini mal hematoma noncontrast imaging. No intimal flap on post contrast imaging. The infrarenal abdominal aorta demonstrates fusiform dilation measuring up to 51 x 50 mm and extendin g approximately 8.4 cm in caudocranial dimension. There is minimal mural thrombus within this aneurys m. No evidence for dissection No evidence for occlusion. The is otherwise vessels of the abdominal aorta are patent. Bilateral common iliac artery stent grafts appear patent. LOWER CHEST: No evidence of focal consolidation, pneumothorax or pleural effusion. LIVER: Unremarkable GALLBLADDER AND BILE DUCTS: Unremarkable. PANCREAS: Unremarkable. SPLEEN: Unremarkable. ADRENAL GLANDS: Unremarkable. KIDNEYS AND URETERS: No evidence of hydronephrosis or renal calculus. The ureters are unremarkable. Left renal cortical cysts. PELVIS BLADDER: Unremarkable REPRODUCTIVE: Unremarkable. ABDOMEN & PELVIS STOMACH AND BOWEL: No evidence of bowel obstruction. Scattered colonic diverticula. PERITONEUM: No evidence of pneumoperitoneum or free fluid. VASCULATURE: No evidence of aortic aneurysm. MUSCULOSKELETAL: No acute osseous abnormalities LYMPH NODES: No gross evidence for lymphadenopathy. SOFT TISSUE/ABDOMINAL WALL: Small fat-containing umbilical hernia. IMPRESSION 1. Infrarenal abdominal aortic aneurysm measuring up to 51 mm in transverse dimension and 8.4 cm in caudocranial length. Surgical consultation recommended. 2. Stent grafts within the common iliac arteries are patent. 3. No evidence for dissection. 4. Mild atherosclerosis of the arterial vasculature.
== END | disposition home or self-care (01) ==
LOC: RADCTMAIN 13:03
PROVIDERS: ATTEND Internal Medicine Cardiovascular Disease
DX: I71.43 Infrarenal abdominal aortic aneurysm, without rupture (principal)
CPT/HCPCS: 82565; 84520; 74175; Q9967

== ENCOUNTER 2024-03-01 07:00 | Inpatient (IN) | payer MEDICARE, BC ==
[2024-03-01] MEDS: IOPAMIDOL-370 100ML BTL INJ ONE (09:08)
[2024-03-01] MEDS ORDERED: HYDROcodone/APAP 5-325MG 1 EACH TAB ONE ×3 (15:55→23:57)
[2024-03-01] MEDS ORDERED: ONDANSETRON 4 MG/2 ML VIAL ONE (22:37)
[2024-03-02] MEDS ORDERED: HYDROcodone/APAP 5-325MG 1 EACH TAB ONE ×2 (04:01→08:47)
[2024-03-02] MEDS ORDERED: ASPIRIN 81 MG ONE (08:47)
[2024-03-02] MEDS ORDERED: MAG HYDROX/AL HYDROX/SIMETH 30 ML CUP ONE (08:48)
[2024-03-12] MEDS ORDERED: LOSARTAN 50 MG TAB ONE (16:15)
[2024-03-12] MEDS ORDERED: ENOXAPARIN 40 MG/0.4 ML SYRINGE SQ ONE (16:15)
[2024-03-12] MEDS ORDERED: amLODIPine 5 MG TAB ONE (16:15)
[2024-03-12] MEDS ORDERED: ISOSORBIDE MONONITRATE ER 30 MG TAB.ER.24H PO ONE (16:15)
[2024-03-12] MEDS ORDERED: METOPROLOL SUCCINATE (ER) 25 MG TAB.ER.24H PO ONE (16:15)
[2024-03-12] MEDS ORDERED: ACETAMINOPHEN TAB 500 MG TAB ONE (20:09)
[2024-03-12] MEDS ORDERED: ATORVASTATIN 20 MG TAB ONE (20:09)
[2024-03-13] MEDS ORDERED: ISOSORBIDE MONONITRATE ER 30 MG TAB.ER.24H PO ONE (07:33)
[2024-03-13] MEDS ORDERED: ASPIRIN 81 MG ONE (07:33)
[2024-03-13] MEDS ORDERED: PANTOPRAZOLE 40 MG TABLET PO ONE (07:33)
[2024-03-13] MEDS ORDERED: LOSARTAN 50 MG TAB ONE (07:33)
[2024-03-13] MEDS ORDERED: ENOXAPARIN 40 MG/0.4 ML SYRINGE SQ ONE (07:34)
[2024-03-13] MEDS ORDERED: METOPROLOL SUCCINATE (ER) 25 MG TAB.ER.24H PO ONE (07:34)
[2024-03-13] MEDS ORDERED: amLODIPine 5 MG TAB ONE (07:34)
[2024-03-13] MEDS ORDERED: FUROSEMIDE 40 MG TAB ONE (07:34)
[2024-03-13] MEDS ORDERED: ATORVASTATIN 20 MG TAB ONE (20:32)
[2024-03-14] MEDS ORDERED: IPRATROPIUM 0.5 MG/2.5 ML NEBU INHALATION ONE (05:04)
[2024-03-14] MEDS ORDERED: PANTOPRAZOLE 40 MG TABLET PO ONE (06:22)
[2024-03-14] MEDS ORDERED: ASPIRIN 81 MG ONE (08:09)
[2024-03-14] MEDS ORDERED: LOSARTAN 50 MG TAB ONE (08:09)
[2024-03-14] MEDS ORDERED: FUROSEMIDE 20 MG TAB ONE (08:10)
[2024-03-14] MEDS ORDERED: METOPROLOL SUCCINATE (ER) 25 MG TAB.ER.24H PO ONE (08:10)
[2024-03-14] MEDS ORDERED: ISOSORBIDE MONONITRATE ER 30 MG TAB.ER.24H PO ONE (08:10)
[2024-03-14] MEDS ORDERED: ENOXAPARIN 40 MG/0.4 ML SYRINGE SQ ONE (08:10)
[2024-03-14] MEDS ORDERED: amLODIPine 10 MG TAB ONE (08:10)
[2024-03-14] MEDS ORDERED: ACETAMINOPHEN TAB 500 MG TAB ONE (22:37)
[2024-03-14] MEDS ORDERED: ATORVASTATIN 20 MG TAB ONE (22:37)
[2024-03-15] MEDS ORDERED: PANTOPRAZOLE 40 MG TABLET PO ONE (06:53)
[2024-03-15] MEDS ORDERED: IPRATROPIUM 0.5 MG/2.5 ML NEBU INHALATION ONE ×3 (07:49→15:03)
[2024-03-15] MEDS ORDERED: METOPROLOL SUCCINATE (ER) 25 MG TAB.ER.24H PO ONE (08:06)
[2024-03-15] MEDS ORDERED: ISOSORBIDE MONONITRATE ER 30 MG TAB.ER.24H PO ONE (08:06)
[2024-03-15] MEDS ORDERED: FUROSEMIDE 20 MG TAB ONE (08:06)
[2024-03-15] MEDS ORDERED: ACETAMINOPHEN TAB 500 MG TAB ONE ×3 (08:06→21:51)
[2024-03-15] MEDS ORDERED: ASPIRIN 81 MG ONE (08:06)
[2024-03-15] MEDS ORDERED: amLODIPine 10 MG TAB ONE (08:07)
[2024-03-15] MEDS ORDERED: ENOXAPARIN 40 MG/0.4 ML SYRINGE SQ ONE (08:07)
[2024-03-15] MEDS ORDERED: ATORVASTATIN 20 MG TAB ONE (08:07)
[2024-03-15] MEDS ORDERED: LOSARTAN 50 MG TAB ONE (08:12)
== END 2024-03-02 12:51 | disposition home or self-care (01) | DRG 269 ==
LOC: 3NCARDOBS 07:00
PROVIDERS: ADMIT Surgery; ATTEND Surgery
PROC: 04V03DZ Restriction of Abdominal Aorta with Intraluminal Device, Percutaneous Approach (ICD-10-PCS; principal; 2024-03-01 07:30)
DX: I71.40 Abdominal aortic aneurysm, without rupture, unspecified (principal); I10 Essential (primary) hypertension; F17.210 Nicotine dependence, cigarettes, uncomplicated; R11.10 Vomiting, unspecified; Z79.82 Long term (current) use of aspirin; Z88.8 Allergy status to other drugs, medicaments and biological substances; Z95.820 Peripheral vascular angioplasty status with implants and grafts; Z79.899 Other long term (current) drug therapy

== ENCOUNTER 2024-03-11 20:58 | Inpatient (IN) | payer MEDICARE, BC ==
[2024-03-11] MEDS ORDERED: NITROGLYCERIN OINT 1 INCH/GM PACKET TOPICAL ONE (21:04)
[2024-03-11] MEDS ORDERED: FUROSEMIDE 10 MG/ML 4 ML VIAL ONE (21:04)
[2024-03-11] MEDS ORDERED: CYCLOBENZAPRINE 10 MG TAB ONE (21:44)
[2024-03-11] MEDS ORDERED: HEPARIN SODIUM,PORCINE 5,000 UNIT/ML 1 ML VIAL ONE (21:44)
[2024-03-11] MEDS ORDERED: ACETAMINOPHEN TAB 325 MG TAB ONE (21:44)
[2024-03-11] MEDS ORDERED: BACITRACIN OINT 1 EACH PACKET TOPICAL ONE (21:46)
[2024-03-11] MEDS ORDERED: PIPERACILLIN-TAZOBACTAM 3.375 GM VIAL ONE (21:46)
[2024-03-11] MEDS ORDERED: KETOROLAC 15 MG/ML 1 ML VIAL ONE (21:51)
[2024-03-11] MEDS ORDERED: ASPIRIN 81 MG ONE (22:40)
[2024-03-12] MEDS ORDERED: NITROGLYCERIN OINT 1 INCH/GM PACKET TOPICAL ONE (06:26)
[2024-03-16] MEDS ORDERED: PANTOPRAZOLE 40 MG TABLET PO ONE (06:56)
[2024-03-16] MEDS ORDERED: ACETAMINOPHEN TAB 500 MG TAB ONE ×2 (06:59→16:12)
[2024-03-16] MEDS ORDERED: IPRATROPIUM 0.5 MG/2.5 ML NEBU INHALATION ONE (08:13)
[2024-03-16] MEDS ORDERED: amLODIPine 10 MG TAB ONE (09:02)
[2024-03-16] MEDS ORDERED: LOSARTAN 50 MG TAB ONE (09:02)
[2024-03-16] MEDS ORDERED: ISOSORBIDE MONONITRATE ER 30 MG TAB.ER.24H PO ONE (09:02)
[2024-03-16] MEDS ORDERED: FUROSEMIDE 20 MG TAB ONE (09:02)
[2024-03-16] MEDS ORDERED: ASPIRIN 81 MG ONE (09:02)
[2024-03-16] MEDS ORDERED: ENOXAPARIN 40 MG/0.4 ML SYRINGE SQ ONE (09:02)
[2024-03-16] MEDS ORDERED: METOPROLOL SUCCINATE (ER) 25 MG TAB.ER.24H PO ONE (09:02)
[2024-03-16] MEDS ORDERED: ACETAMINOPHEN TAB 325 MG TAB ONE (16:11)
[2024-03-17] MEDS ORDERED: IPRATROPIUM-ALBUTEROL 3 ML NEB INHALATION PRN
[2024-03-17] MEDS ORDERED: ACETAMINOPHEN TAB 500 MG TAB PO PRN
[2024-03-17] MEDS ORDERED: PANTOPRAZOLE 40 MG TABLET PO SCH (07:30)
[2024-03-17] MEDS ORDERED: SYMBICORT 80-4.5 MCG INHALER INHALATION SCH (08:00)
[2024-03-17] MEDS ORDERED: IPRATROPIUM 0.5 MG/2.5 ML NEBU INHALATION SCH (08:00)
[2024-03-17] MEDS ORDERED: amLODIPine 10 MG TAB PO SCH (09:00)
[2024-03-17] MEDS ORDERED: LOSARTAN 50 MG TAB PO SCH (09:00)
[2024-03-17] MEDS ORDERED: ISOSORBIDE MONONITRATE ER 30 MG TAB.ER.24H PO SCH (09:00)
[2024-03-17] MEDS ORDERED: ASPIRIN 81 MG PO SCH (09:00)
[2024-03-17] MEDS ORDERED: FUROSEMIDE 20 MG TAB PO SCH (09:00)
[2024-03-17] MEDS ORDERED: METOPROLOL SUCCINATE (ER) 25 MG TAB.ER.24H PO SCH (09:00)
[2024-03-17] MEDS ORDERED: ENOXAPARIN 40 MG/0.4 ML SYRINGE SQ SCH (09:00)
[2024-03-17] MEDS ORDERED: ATORVASTATIN 20 MG TAB PO SCH (21:00)
--- NOTE | 2024-03-19 13:05 | US ---
EXAMINATION TYPE: US venous doppler duplex LE BI DATE OF EXAM: 03/12/2024, dictated on 03/19/2024 due to downtime COMPARISON: NONE CLINICAL INDICATION: Female, 73 years old with history of Recent surgery, PE; lower extremity swellin g since surgery on 03/01/2024. Shortness of breath for 5 days. SIDE PERFORMED: Bilateral TECHNIQUE: The lower extremity deep venous system is examined utilizing real time linear array sonog taniya with graded compression, doppler sonography and color-flow sonography. VESSELS IMAGED: Common Femoral Vein Deep Femoral Vein Greater Saphenous Vein * Femoral Vein Popliteal Vein Small Saphenous Vein * Proximal Calf Veins Posterior tibial veins (* superficial vessels) Mild subcutaneous soft tissue swelling in the legs. Right Leg: Negative for DVT Left Leg: Negative for DVT IMPRESSION: No evidence for DVT within the bilateral lower extremities.
--- NOTE | 2024-03-20 12:58 | XR ---
Patient: Henny Camargo Ordering Physician: Unknown, Unknown ID: [id number] Phone, Pager: Phone: N/A Pager: N/A : 1950 Age/Gender: 73Y, F Primary Location: N/A Procedure: CHEST 2 VIEW Study Date: 03/15/2024 7:15:00 AM EXAMINATION TYPE: XR chest 2V DATE OF EXAM: 03/15/2024 COMPARISON: 03/12/2024 HISTORY: 73-year-old female shortness of breath, pneumonia TECHNIQUE: PA and lateral views FINDINGS: Heart and lungs are normal in size. Mild interstitial prominence is similar. Small small bilateral pl eural effusions, slightly increased now on the left with some adjacent patchy opacity. Partially visu alized endovascular aortic valve replacement. Large appearance to the right main pulmonary artery on the lateral view. IMPRESSION: Correlate for COPD with ongoing superimposed mild pulmonary vascular congestion. Slight increased sma ll effusions with adjacent atelectasis and/or consolidation.
--- NOTE | 2024-04-01 08:49 | CT ---
Patient: Henny Camargo Ordering Physician: Unknown, Unknown ID: [id number] Phone, Pager: Phone: N/A Pager: N/A : 1950 Age/Gender: 73Y, F Primary Location: N/A Procedure: PE CHEST Study Date : 03/11/2024 7:44:49 PM EXAMINATION TYPE: CT angio chest CT DLP: 213 mGycm, Automated exposure control for dose reduction was used. DATE OF EXAM: 03/11/2024 8:28 PM COMPARISON: 05/12/2021. CLINICAL INDICATION: 05/20/2021 TECHNIQUE/CONTRAST: CTA scan of the thorax is performed with IV Contrast, patient injected with 100 mL of Isovue 370, MIP images are created and reviewed these are created on a separate workstation.. FINDINGS: Pulmonary Artery: There is no evidence for a filling defect within the pulmonary vasculature to sugge st acute pulmonary embolism. The pulmonary artery is of normal size. Lungs/Pleura: 10 mm right upper lobe pulmonary nodule series 401 image 42. Initial nodule may be more posteriorly and inferiorly measuring 7 mm series 401 image 52. Intralobular septal thickening. Trace bilateral pleural effusions. Airway: Large airways are patent. Heart: Heart is within normal limits for size. Vasculature: No evidence of aortic aneurysm. Aortobiiliac stent graft partially visualized in the abd omen. Mediastinum: No gross evidence of adenopathy. Prominent nonenlarged lymph node in the right low parat rebecca region measuring 8 mm in short axis. Musculoskeletal: No acute osseous abnormalities Soft Tissues/lymph nodes: Unremarkable. Lower neck: No significant bilateral thyroid nodules measuring 11 mm on the right and 10 mm in the le ft. Upper Abdomen: Bilateral simple renal cortical cysts. IMPRESSION: 1. No evidence of pulmonary embolism. 2. Pulmonary edema trace bilateral pleural effusions correlate with serum BNP. 3. Right upper lobe pulmonary nodule measuring 10 mm further workup with PET/CTs recommended.
--- NOTE | 2024-04-05 07:54 | CA ---
Transthoracic Echo Report Name: Henny Camargo Age: 73 Gender: F : 1950 Exam Date: 03/12/2024 14:54 Exam Location: [place] [facility] Ht (in): 62 Wt (lb): 120 Ordering Physician: Attending/Referring Phys: Commodity Merchant Rochelle Jackson RDCS Procedure CPT: Indications: Cardiac Hx: Technical Quality: Contrast 1: Total Dose (mL): Contrast 2: Total Dose (mL): MEASUREMENTS (Male / Female) Normal Values 2D ECHO LV Diastolic Diameter PLAX 4.2 cm 4.2 - 5.9 / 3.9 - 5.3 cm LV Systolic Diameter PLAX 2.7 cm IVS Diastolic Thickness 1.1 cm 0.6 - 1.0 / 0.6 - 0.9 cm LVPW Diastolic Thickness 1.1 cm 0.6 - 1.0 / 0.6 - 0.9 cm LV Relative Wall Thickness 0.5 RV Internal Dim ED PLAX 3.0 cm LA Systolic Diameter LX 3.2 cm 3.0 - 4.0 / 2.7 - 3.8 cm LV Diastolic Volume MOD 4C 83.5 cm??? LV Systolic Volume MOD 4C 35.9 cm??? LV Ejection Fraction MOD 4C 57.0 % LV Diastolic Length 4C 8.2 cm LV Systolic Length 4C 6.3 cm LV Diastolic Volume MOD 2C 97.8 cm??? LV Systolic Volume MOD 2C 32.1 cm??? LV Ejection Fraction MOD 2C 67.2 % LV Diastolic Length 2C 8.2 cm LV Systolic Length 2C 6.5 cm LA Volume 47.3 cm??? 18 - 58 / 22 - 52 cm??? LA Volume Index 30.6 cm???/m??? 16 - 28 cm???/m??? M-MODE Aortic Root Diameter MM 2.6 cm AV Cusp Separation MM 1.7 cm DOPPLER AV Peak Velocity 149.1 cm/s AV Peak Gradient 8.9 mmHg MV Area PHT 2.7 cm??? Mitral E Point Velocity 97.7 cm/s Mitral A Point Velocity 123.5 cm/s Mitral E to A Ratio 0.8 MV Deceleration Time 284.8 ms TR Peak Velocity 266.4 cm/s TR Peak Gradient 28.4 mmHg Right Ventricular Systolic Press 33.4 mmHg FINDINGS Left Ventricle Left ventricular ejection fraction is estimated at 55-60 %. Left ventricular cavity size normal. Normal left ventricular systolic function with no obvious regional wall motion abnormalities. Right Ventricle Normal right ventricular size and function. Right ventricular systolic pressure within normal limits. Right Atrium Normal right atrial size. No right atrial thrombus or mass seen. Left Atrium Mildly increased left atrial volume. No left atrial thrombus or mass present. Mitral Valve Structurally normal mitral valve. No mitral stenosis, regurgitation or prolapse. Aortic Valve Trileaflet aortic valve. No aortic valve stenosis or regurgitation. Tricuspid Valve Structurally normal tricuspid valve. Mild tricuspid regurgitation. Pulmonic Valve Structurally normal pulmonic valve. No pulmonic regurgitation. Pericardium No pericardial or pleural effusion. Aorta Normal size aortic root and proximal ascending aorta. CONCLUSIONS 1. Normal left ventricular size and systolic function 2. Mild tricuspid regurgitation with no evidence of pulmonary hypertension Previewed by: Dr. Zulma Quiroga MD (Electronically Signed) Final Date: 13 March 2024 07:30
--- NOTE | 2024-04-09 08:08 | XR ---
Henny Camargo ID: [id number] : 1950 EXAMINATION TYPE: XR chest 2V DATE OF EXAM: 03/12/2024 COMPARISON: None HISTORY: 73-year-old female shortness of breath, assess for fluid in the lungs TECHNIQUE: AP and lateral views FINDINGS: Heart borderline in size. Hyperinflation. There are trace bilateral pleural effusions and mild promin ence of the pulmonary vascularity. Aorta endovascular stent graft in the upper abdomen. IMPRESSION: Correlate for COPD with superimposed mild CHF and pulmonary vascular congestion. Trace bilateral pleu ral effusions.
--- NOTE | 2024-04-10 12:50 | CDI ---
Documentation Clarification Form Date: 04/10/2024 12:34:29 PM From: Cassandra Copeland Phone: Admit Date: 03/11/2024 08:58:00 PM Patient Name: Henny Camargo Visit Number: [id number] Discharge Date: 03/16/2024 11:00:00 PM ATTENTION: The Clinical Documentation Specialists (CDI) and [facility] Coding Staff appreciate your assistance in clarifying documentation. Please respond to the clarification below the line at the bottom and electronically sign. The CDI & [facility] Coding staff will review the response and follow-up if needed. Please note: Queries are made part of the Legal Health Record. If you have any questions, please contact the author of this message via ITS. Doctor/Provider: Anshu Padilla Your patient has the documented diagnosis of unspecified CHF per H&P Progress Notes. Additional information regarding the type and acuity of CHF is requested. History/Risk Factors: 73yo F, HTN, CHF, acute pulmonary edema, pulmonary nodules, COPD, HLD, CAD, NIDDMII w PVD spa stent, TR, former smoker Clinical Indicators: VS/Pulse OX: T 98.1 BP 153/24 p 76 RR 18 o2 Sat 95 BNP: 5720 Echo Results: Normal LV size and systolic function. 2. MildTRwith no evidence ofPHTN. Chest x ray: Correlate forCOPDwith superimposed mildCHFand pulmonary vascularcongestion. Tracebil pleural effusions. Treatment: IV diuretics In your professional opinion, can you please clarify the acuity and type of CHF if known? [ ] Acute Systolic Heart Failure (reduced EF) [ ] Acute on Chronic Systolic Heart Failure (reduced EF) [ ] Acute Diastolic Heart Failure (preserved EF) [xxx ] Acute on Chronic Diastolic Heart Failure (preserved EF) [ ] Acute Systolic & Diastolic Heart Failure [ ] Acute on Chronic Heart Failure Systolic & Diastolic Heart Failure [ ] Other, please specify [ ] Unable to determine (Template Last Revised: August 2020) [employer]
== END 2024-03-16 23:00 | disposition home or self-care (01) | DRG 291 ==
LOC: 3SCARD 20:58 → UNDODISIN 03-17 00:53
PROVIDERS: ADMIT Internal Medicine; ATTEND Internal Medicine
DX: I11.0 Hypertensive heart disease with heart failure (principal); I50.33 Acute on chronic diastolic (congestive) heart failure; E11.51 Type 2 diabetes mellitus with diabetic peripheral angiopathy without gangrene; J44.9 Chronic obstructive pulmonary disease, unspecified; I70.202 Unspecified atherosclerosis of native arteries of extremities, left leg; I07.1 Rheumatic tricuspid insufficiency; R91.8 Other nonspecific abnormal finding of lung field; E78.5 Hyperlipidemia, unspecified; I25.10 Atherosclerotic heart disease of native coronary artery without angina pectoris; Z88.8 Allergy status to other drugs, medicaments and biological substances; Z79.02 Long term (current) use of antithrombotics/antiplatelets; Z95.820 Peripheral vascular angioplasty status with implants and grafts; Z79.51 Long term (current) use of inhaled steroids; Z86.79 Personal history of other diseases of the circulatory system; Z87.891 Personal history of nicotine dependence; Z79.899 Other long term (current) drug therapy
CPT/HCPCS: 71046; 71275; 87040; 93306; 93970; 94640; 94760; 99285

== ENCOUNTER → 2024-03-29 | Outpatient (CLI) | payer MEDICARE, BC ==
[2024-03-29 12:29] LABS: African American GFR (CKD) 40 (>60 ml/min/1.73 sqM); Blood Urea Nitrogen 26 mg/dL (7-17); Non-African American GFR(CKD) 35 (>60 ml/min/1.73 sqM)
== END | disposition home or self-care (01) ==
LOC: RADCTMAIN 11:46
PROVIDERS: ATTEND Surgery
DX: I71.40 Abdominal aortic aneurysm, without rupture, unspecified (principal)
CPT/HCPCS: 82565; 84520

== ENCOUNTER 2024-09-17 22:49 | Emergency (ER) | payer MEDICARE, BC ==
[2024-09-17 22:55] VITALS: TEMP 97.9
[2024-09-18 00:08] LABS: Anisocytosis Slight; Basophils % (A) 0 %; Eosinophils # (A) 0.5 k/uL (0-0.7); Eosinophils % (A) 6 %; HCT 33.3 % (34.0-46.0); HGB 10.7 gm/dL (11.4-16.0); Lymphocytes # (A) 2.1 k/uL (1.0-4.8); Lymphocytes % (A) 25 %; MCH 28.1 pg (25.0-35.0); MCV 87.8 fL (80.0-100.0); Mean Platelet Volume 6.7; Monocytes # (A) 0.5 k/uL (0-1.0); Monocytes % (A) 6 %; Neutrophils # (A) 5.1 k/uL (1.3-7.7); Neutrophils % (A) 61 %; Platelet Count 319 k/uL (150-450); RBC 3.79 m/uL (3.80-5.40); RDW 16.8 % (11.5-15.5); WBC 8.3 k/uL (3.8-10.6)
[2024-09-18 00:25] LABS: ALT 20 U/L (4-34); AST 28 U/L (14-36); African American GFR (CKD) 29 (>60 ml/min/1.73 sqM); Albumin 4.5 g/dL (3.5-5.0); Alkaline Phosphatase 77 U/L (38-126); Anion Gap 14 mmol/L; Blood Urea Nitrogen 42 mg/dL (7-17); Calcium 9.8 mg/dL (8.4-10.2); Carbon Dioxide 19 mmol/L (22-30); Chloride 99 mmol/L (98-107); Glucose 94 mg/dL (74-99); Magnesium 2.1 mg/dL (1.6-2.3); Non-African American GFR(CKD) 25 (>60 ml/min/1.73 sqM); Potassium 5.1 mmol/L (3.5-5.1); Sodium 132 mmol/L (137-145); Total Bilirubin 0.4 mg/dL (0.2-1.3); Total Protein 6.9 g/dL (6.3-8.2)
[2024-09-18] MEDS: SODIUM CHLORIDE 0.9% 500 ML 500 ML IV ONE (00:27)
[2024-09-18] MEDS: hydrALAZINE HCL 20 MG/ML 1 ML VIAL IVP STA (00:29)
[2024-09-18] MEDS: Acetaminophen-Codeine 300-30mg TAB PO STA (00:35)
[2024-09-18 00:45] LABS: Influenza A Not Detected (Not Detectd); Influenza B Not Detected (Not Detectd); RSV Not Detected (Not Detectd)
[2024-09-18] MEDS: MORPHINE SULFATE 2 MG/ML SYRINGE IVP STA (01:20)
--- NOTE | 2024-09-18 01:38 | US ---
EXAM: US Duplex Bilateral Lower Extremities Veins CLINICAL HISTORY: US Reason: swelling, pain TECHNIQUE: Real-time duplex ultrasound scan of the bilateral lower extremity veins integrating B-mode two-dimensional vascular structure, Doppler spectral analysis, color flow Doppler imaging and compression. COMPARISON: No relevant prior studies available. FINDINGS: Right deep veins: Unremarkable. No DVT in the right common femoral, femoral, proximal deep femoral or popliteal veins. The veins demonstrate normal color flow, are normally compressible, with normal phasic flow and/or augmentation response. Right superficial veins: Unremarkable. No thrombus in the visualized right great saphenous vein. Left deep veins: Unremarkable. No DVT in the left common femoral, femoral, proximal deep femoral or popliteal veins. The veins demonstrate normal color flow, are normally compressible, with normal phasic flow and/or augmentation response. Left superficial veins: Unremarkable. No thrombus in the visualized left great saphenous vein. Soft tissues: No acute findings. No popliteal cyst. IMPRESSION: Negative bilateral lower extremity duplex venous ultrasound. No evidence of DVT.
--- NOTE | 2024-09-18 01:49 | ED ---
Extremity Problem HPI - General Chief complaint: Extremity Problem,Nontraumatic Stated complaint: dizziness left foot swelling Time Seen by Provider: 09/17/24 23:08 Source: patient Mode of arrival: wheelchair Limitations: no limitations - History of Present Illness Initial comments: 74-year-old female presenting with chief complaint of bilateral leg pain. Patient has history of restless leg syndrome, she also has history of lower extremity vascular stenting. She denies any injury or trauma. Pain is present at rest but also worse with walking. Family states that the right foot is a bit brownish. She does have swelling in the legs. No chest pain or difficulty breathing. No fever. No joint swelling. - Related Data Home Medications Medication Instructions Recorded Confirmed Simvastatin 40 mg PO HS 01/30/20 04/08/22 amLODIPine BESYLATE 10 mg PO DAILY 01/30/20 04/08/22 Isosorbide Mononitrate ER [Imdur] 30 mg PO DAILY 03/14/22 04/08/22 Metoprolol Succinate (ER) [Toprol 50 mg PO DAILY 03/14/22 04/08/22 XL] Previous Rx's Medication Instructions Recorded Aspirin 81 mg PO DAILY 90 Days #90 tab 03/20/22 Ferrous Sulfate [Iron (65 MG 325 mg PO TID-W/MEALS 30 Days #90 03/20/22 Elemental)] tab Losartan [Cozaar] 100 mg PO DAILY 30 Days #30 tab 03/20/22 Pantoprazole Sodium [Protonix] 40 mg PO DAILY 30 Days #30 tab 03/20/22 Allergies Allergy/AdvReac Type Severity Reaction Status Date / Time clopidogrel [From Plavix] Allergy Swelling Verified 09/17/24 22:55 guaifenesin [From Mucinex] Allergy Swelling Verified 09/17/24 22:55 steroids Allergy Swelling Uncoded 09/17/24 22:55 Review of Systems ROS Statement: Those systems with pertinent positive or pertinent negative responses have been documented in the HPI. ROS Other: All systems not noted in ROS Statement are negative. Past Medical History Past Medical History: Chest Pain / Angina, Hyperlipidemia, Hypertension, Osteoarthritis (OA), Vascular Disorder Additional Past Medical History / Comment(s): has difficulty walking,aortic aneurysm,SOB,yesika leg swelling from knee down,ruptured disk,hemorrhage rt eye after cataract surgery, left leg stenting, recent stress test, recent adm. to [facility] for anemia-had transfusion, restless leg syndrome History of Any Multi-Drug Resistant Organisms: None Reported Additional Past Surgical History / Comment(s): Aortogram,yesika cataracts,laser surgery rt eye hemorrhage post cataract surg. Past Anesthesia/Blood Transfusion Reactions: No Reported Reaction Past Psychological History: No Psychological Hx Reported Smoking Status: Former smoker Past Alcohol Use History: None Reported Past Drug Use History: None Reported - Past Family History Mother Family Medical History: No Reported History General Exam Limitations: no limitations General appearance: alert, in no apparent distress Head exam: Present: atraumatic, normocephalic, normal inspection Eye exam: Present: normal appearance, EOMI Neck exam: Present: normal inspection. Absent: meningismus Respiratory exam: Present: normal lung sounds bilaterally. Absent: respiratory distress, wheezes, rales, rhonchi, stridor Cardiovascular Exam: Present: regular rate, normal rhythm, normal heart sounds. Absent: systolic murmur, diastolic murmur, rubs, gallop, clicks GI/Abdominal exam: Present: soft. Absent: distended, tenderness, guarding, rebound, rigid Extremities exam: Present: pedal edema (Patient does have pedal edema. She has palpable dorsalis pedis pulses bilaterally. There is some brownish hyperpigmentation of the right foot) Neurological exam: Present: alert, oriented X3 Psychiatric exam: Present: normal affect, normal mood Skin exam: Present: warm, dry Course Vital Signs 09/17/24 09/18/24 09/18/24 22:52 00:01 00:42 Temperature 97.9 F Pulse Rate 73 68 77 Respiratory 18 17 14 Rate Blood Pressure 210/89 197/86 192/80 O2 Sat by Pulse 95 97 97 Oximetry 09/18/24 09/18/24 01:23 02:15 Temperature Pulse Rate 86 78 Respiratory 14 17 Rate Blood Pressure 189/79 189/78 O2 Sat by Pulse 96 96 Oximetry Medical Decision Making - Medical Decision Making Was pt. sent in by a medical professional or institution (, PA, MEDICAL HISTORIAN, urgent care, hospital, or group home...) When possible be specific @ -No Did you speak to anyone other than the patient for history (EMS, parent, family, police, friend...)? What history was obtained from this source @ -Patient's brother and sister Did you review nursing and triage notes (agree or disagree)? Why? @ -I reviewed and agree with nursing and triage notes Were old charts reviewed (outside hosp., previous admission, EMS record, old EKG, old radiological studies, urgent care reports/EKG's, group home records)? Report findings @ -No old charts were reviewed Differential Diagnosis (chest pain, altered mental status, abdominal pain women, abdominal pain men, vaginal bleeding, weakness, fever, dyspnea, syncope, headache, dizziness, GI bleed, back pain, seizure, CVA, palpatations, mental health, musculoskeletal)? @ -Differential Musculoskeletal Muscular strain, contusion, ligament sprain, fracture, arthritis, septic arthritis, bursitis, cellulitis, muscle spasm, nerve compression, DVT, arterial occlusion, herpes zoster, electrolyte abnormality, tumor.... This is not meant to be in all inclusive list EKG interpreted by me (3pts min.). @ -EKG shows sinus rhythm ventricular rate 71. KS interval 157. QRS 82. QT 377. QTc 400 X-rays interpreted by me (1pt min.). @ -None done CT interpreted by me (1pt min.). @ -None done U/S interpreted by me (1pt. min.). @ -Ultrasound negative for DVT bilaterally What testing was considered but not performed or refused? (CT, X-rays, U/S, labs)? Why? @ -CTA was considered, however the patient's chronic renal disease makes her ineligible to receive contrast. Patient has palpable pulses bilaterally we can likely forego this test today and have her follow-up with her vascular surgeon What meds were considered but not given or refused? Why? @ -None Did you discuss the management of the patient with other professionals (professionals i.e. , PA, MEDICAL HISTORIAN, lab, RT, psych nurse, social science research assistant, golf course mechanic, teacher, community resource officer, case consultant)? Give summary @ -No Was smoking cessation discussed for >3mins.? @ -No Was critical care preformed (if so, how long)? @ -No Were there social determinants of health that impacted care today? How? (Homelessness, low income, unemployed, alcoholism, drug addiction, transport ation, low edu. Level, literacy, decrease access to med. care, assisted, rehab)? @ -No Was there de-escalation of care discussed even if they declined (Discuss DNR or withdrawal of care, Hospice)? DNR status @ -No What co-morbidities impacted this encounter? (DM, HTN, Smoking, COPD, CAD, Cancer, CVA, ARF, Chemo, Hep., AIDS, mental health diagnosis, sleep apnea, morbid obesity)? @ -None Was patient admitted / discharged? Hospital course, mention meds given and route, prescriptions, significant lab abnormalities, going to OR and other pertinent info. @ -74-year-old female presenting with chief complaint of bilateral leg pain. History and physical examination are conducted. Patient does have palpable dorsalis pedis pulses bilaterally. There is some brownish hyperpigmentation to the right foot. She does have swelling to the lower extremities bilaterally as well. Ultrasound negative for DVT. She is negative for influenza, RSV, COVID. BUN 42 creatinine 1.90, this is consistent with the patient's CKD. Lactic acid is 0.6. Patient reports improvement in her pain after analgesia. She is educated on today's findings. Instructed to follow-up with vascular surgeon, she reports that she does have 1 but she would be interested in seeing a different one, other suggestion is provided. Follow-up with PCP. Report back to ER with any new or worsening symptoms. Discussed return parameters and answered all questions. Patient conveyed verbal understanding and agreed to the plan. I discussed this case in detail with my attending Dr. Garcia Undiagnosed new problem with uncertain prognosis? @ -No Drug Therapy requiring intensive monitoring for toxicity (Heparin, Nitro, Insulin, Cardizem)? @ -No Were any procedures done? @ -No Diagnosis/symptom? @ -Leg pain Acute, or Chronic, or Acute on Chronic? @ -Acute Uncomplicated (without systemic symptoms) or Complicated (systemic symptoms)? @ -Uncomplicated Side effects of treatment? @ -No Exacerbation, Progression, or Severe Exacerbation? @ -No - Lab Data Result diagrams: 09/17/24 23:53 09/17/24 23:53 Lab Results 09/17/24 09/17/24 09/17/24 Range/Units 23:53 23:53 23:53 WBC 8.3 (3.8-10.6) k/uL RBC 3.79 L (3.80-5.40) m/uL Hgb 10.7 L (11.4-16.0) gm/dL Hct 33.3 L (34.0-46.0) % MCV 87.8 (80.0-100.0) fL MCH 28.1 (25.0-35.0) pg MCHC 32.0 (31.0-37.0) g/dL RDW 16.8 H (11.5-15.5) % Plt Count 319 (150-450) k/uL MPV 6.7 Neutrophils % 61 % Lymphocytes % 25 % Monocytes % 6 % Eosinophils % 6 % Basophils % 0 % Neutrophils # 5.1 (1.3-7.7) k/uL Lymphocytes # 2.1 (1.0-4.8) k/uL Monocytes # 0.5 (0-1.0) k/uL Eosinophils # 0.5 (0-0.7) k/uL Basophils # 0.0 (0-0.2) k/uL Anisocytosis Slight Sodium 132 L (137-145) mmol/L Potassium 5.1 (3.5-5.1) mmol/L Chloride 99 (98-107) mmol/L Carbon Dioxide 19 L (22-30) mmol/L Anion Gap 14 mmol/L BUN 42 H (7-17) mg/dL Creatinine 1.90 H (0.52-1.04) mg/dL Est GFR (CKD-EPI)AfAm 29 (>60 ml/min/1.73 sqM) Est GFR (CKD-EPI)NonAf 25 (>60 ml/min/1.73 sqM) Glucose 94 (74-99) mg/dL Plasma Lactic Acid Seven (0.7-2.0) mmol/L Calcium 9.8 (8.4-10.2) mg/dL Magnesium 2.1 (1.6-2.3) mg/dL Total Bilirubin 0.4 (0.2-1.3) mg/dL AST 28 (14-36) U/L ALT 20 (4-34) U/L Alkaline Phosphatase 77 (38-126) U/L Total Protein 6.9 (6.3-8.2) g/dL Albumin 4.5 (3.5-5.0) g/dL Influenza Type A (PCR) Not Detected (Not Detectd) Influenza Type B (PCR) Not Detected (Not Detectd) RSV (PCR) Not Detected (Not Detectd) SARS-CoV-2 (PCR) Not Detected (Not Detectd) 09/17/24 Range/Units 23:53 WBC (3.8-10.6) k/uL RBC (3.80-5.40) m/uL Hgb (11.4-16.0) gm/dL Hct (34.0-46.0) % MCV (80.0-100.0) fL MCH (25.0-35.0) pg MCHC (31.0-37.0) g/dL RDW (11.5-15.5) % Plt Count (150-450) k/uL MPV Neutrophils % % Lymphocytes % % Monocytes % % Eosinophils % % Basophils % % Neutrophils # (1.3-7.7) k/uL Lymphocytes # (1.0-4.8) k/uL Monocytes # (0-1.0) k/uL Eosinophils # (0-0.7) k/uL Basophils # (0-0.2) k/uL Anisocytosis Sodium (137-145) mmol/L Potassium (3.5-5.1) mmol/L Chloride (98-107) mmol/L Carbon Dioxide (22-30) mmol/L Anion Gap mmol/L BUN (7-17) mg/dL Creatinine (0.52-1.04) mg/dL Est GFR (CKD-EPI)AfAm (>60 ml/min/1.73 sqM) Est GFR (CKD-EPI)NonAf (>60 ml/min/1.73 sqM) Glucose (74-99) mg/dL Plasma Lactic Acid Seven 0.6 L (0.7-2.0) mmol/L Calcium (8.4-10.2) mg/dL Magnesium (1.6-2.3) mg/dL Total Bilirubin (0.2-1.3) mg/dL AST (14-36) U/L ALT (4-34) U/L Alkaline Phosphatase (38-126) U/L Total Protein (6.3-8.2) g/dL Albumin (3.5-5.0) g/dL Influenza Type A (PCR) (Not Detectd) Influenza Type B (PCR) (Not Detectd) RSV (PCR) (Not Detectd) SARS-CoV-2 (PCR) (Not Detectd) Disposition Clinical Impression: Leg pain Disposition: HOME SELF-CARE Condition: Good Instructions (If sedation given, give patient instructions): Leg Pain (ED) Additional Instructions: Follow-up with your PCP and vascular surgeon. Report back to ER with any new or worsening symptoms. Is patient prescribed a controlled substance at d/c from ED?: No Referrals: Edita Dominguez MD [Primary Care Provider] - 1-2 days Ryan Moralez DO [Doctor of Osteopathic Medicine] - 1-2 days Dottie Montiel DO [STAFF PHYSICIAN] - 1-2 days Time of Disposition: 01:49
[2024-09-18] MEDS: ONDANSETRON ODT 4 MG TAB PO STA (02:13)
[2024-09-18 02:16] VITALS: BP 189/78; PULSE 78; RESP 17
== END 2024-09-18 02:16 | disposition home or self-care (01) ==
LOC: EC 22:49
DX: M79.605 Pain in left leg (principal); M79.604 Pain in right leg; Z88.8 Allergy status to other drugs, medicaments and biological substances
CPT/HCPCS: 36415; 93005; 80053; 83605; 83735; 85025; 87636; 93970; 99284; 96374; 96375; 96361; J0360; J2270

== ENCOUNTER 2024-12-03 23:20 | Inpatient (IN) | payer MEDICARE, BC ==
--- NOTE | 2024-12-03 23:56 | ED ---
General Adult HPI - General Chief complaint: Recheck/Abnormal Lab/Rx Stated complaint: irregular bp Time Seen by Provider: 12/03/24 23:29 Source: patient, RN notes reviewed, old records reviewed Mode of arrival: ambulatory Limitations: no limitations - History of Present Illness Initial comments: 74-year-old female history of hypertension presenting for evaluation of elevated blood pressure. Patient has had recent medication change patient states that she is currently on lisinopril 20 mg and had her hydralazine increased from 50 mg twice a day to 50 mg 3 times a day. She has been compliant with medication. She denies chest pain. Denies abdominal pain. Denies nausea vomiting. Patient is admitting to significant stress with the recent loss of her . - Related Data Home Medications Medication Instructions Recorded Confirmed Simvastatin 40 mg PO HS 01/30/20 04/08/22 amLODIPine BESYLATE 10 mg PO DAILY 01/30/20 04/08/22 Isosorbide Mononitrate ER [Imdur] 30 mg PO DAILY 03/14/22 04/08/22 Metoprolol Succinate (ER) [Toprol 50 mg PO DAILY 03/14/22 04/08/22 XL] Previous Rx's Medication Instructions Recorded Aspirin 81 mg PO DAILY 90 Days #90 tab 03/20/22 Ferrous Sulfate [Iron (65 MG 325 mg PO TID-W/MEALS 30 Days #90 03/20/22 Elemental)] tab Losartan [Cozaar] 100 mg PO DAILY 30 Days #30 tab 03/20/22 Pantoprazole Sodium [Protonix] 40 mg PO DAILY 30 Days #30 tab 03/20/22 Allergies Allergy/AdvReac Type Severity Reaction Status Date / Time clopidogrel [From Plavix] Allergy Swelling Verified 12/03/24 23:25 guaifenesin [From Mucinex] Allergy Swelling Verified 12/03/24 23:25 steroids Allergy Swelling Uncoded 12/03/24 23:25 Review of Systems ROS Statement: Those systems with pertinent positive or pertinent negative responses have been documented in the HPI. ROS Other: All systems not noted in ROS Statement are negative. Past Medical History Past Medical History: Chest Pain / Angina, Hyperlipidemia, Hypertension, Osteoarthritis (OA), Vascular Disorder Additional Past Medical History / Comment(s): has difficulty walking,aortic aneurysm,SOB,yesika leg swelling from knee down,ruptured disk,hemorrhage rt eye after cataract surgery, left leg stenting, recent stress test, recent adm. to [facility] for anemia-had transfusion, restless leg syndrome History of Any Multi-Drug Resistant Organisms: None Reported Additional Past Surgical History / Comment(s): Aortogram,yesika cataracts,laser surgery rt eye hemorrhage post cataract surg. Past Anesthesia/Blood Transfusion Reactions: No Reported Reaction Past Psychological History: No Psychological Hx Reported Smoking Status: Former smoker Past Alcohol Use History: None Reported Past Drug Use History: None Reported - Past Family History Mother Family Medical History: No Reported History General Exam Limitations: no limitations General appearance: alert, in no apparent distress Head exam: Present: atraumatic, normocephalic Eye exam: Present: normal appearance, PERRL ENT exam: Present: normal exam Neck exam: Present: normal inspection. Absent: tenderness, meningismus Respiratory exam: Present: normal lung sounds bilaterally. Absent: respiratory distress, wheezes Cardiovascular Exam: Present: regular rate, normal rhythm GI/Abdominal exam: Present: soft. Absent: distended, tenderness, guarding, rebound Extremities exam: Present: normal inspection, normal capillary refill. Absent: pedal edema Neurological exam: Present: alert, oriented X3, CN II-XII intact. Absent: motor sensory deficit Psychiatric exam: Present: normal affect, normal mood Skin exam: Present: warm, dry, intact. Absent: cyanosis, diaphoretic Course Vital Signs 12/03/24 12/03/24 23:21 23:51 Temperature 97.9 F 98.1 F Pulse Rate 89 86 Respiratory 18 20 Rate Blood Pressure 244/108 236/92 O2 Sat by Pulse 97 96 Oximetry Medical Decision Making - Medical Decision Making Was pt. sent in by a medical professional or institution (, PA, WOOD DRILLING MACHINE OPERATOR, urgent care, hospital, or long-term...) When possible be specific @ -No Did you speak to anyone other than the patient for history (EMS, parent, family, police, friend...)? What history was obtained from this source @ -No Did you review nursing and triage notes (agree or disagree)? Why? @ -I reviewed and agree with nursing and triage notes Were old charts reviewed (outside hosp., previous admission, EMS record, old EKG, old radiological studies, urgent care reports/EKG's, long-term records)? Report findings @ -No old charts were reviewed Differential Diagnosis:, Accelerated hypertension, hypertensive urgency, hypertensive emergency. EKG interpreted by me (3pts min.). @ -Sinus rhythm rate of 77, MT interval 142, QRS duration 96, QTc 400, no ST segment elevation X-rays interpreted by me (1pt min.). @Chest x-ray negative for acute cardiopulmonary findings CT interpreted by me (1pt min.). @ -None done U/S interpreted by me (1pt. min.). @ -None done What testing was considered but not performed or refused? (CT, X-rays, U/S, labs)? Why? @ -None What meds were considered but not given or refused? Why? @ -None Did you discuss the management of the patient with other professionals (pr ofessionals i.e. , PA, WOOD DRILLING MACHINE OPERATOR, lab, RT, psych nurse, social service assistant, manual lathe machinist, teacher, ambulance officer, vocational case manager)? Give summary @ -No Was smoking cessation discussed for >3mins.? @ -No Was critical care preformed (if so, how long)? @ yes 35 min Were there social determinants of health that impacted care today? How? (Homelessness, low income, unemployed, alcoholism, drug addiction, transportatio n, low edu. Level, literacy, decrease access to med. care, [facility], rehab)? @ -No Was there de-escalation of care discussed even if they declined (Discuss DNR or withdrawal of care, Hospice)? DNR status @ -No What co-morbidities impacted this encounter? (DM, HTN, Smoking, COPD, CAD, Cancer, CVA, ARF, Chemo, Hep., AIDS, mental health diagnosis, sleep apnea, morbid obesity)? @Hypertension, abdominal aortic aneurysm status post graft Was patient admitted / discharged? Hospital course, mention meds given and route, prescriptions, significant lab abnormalities, going to OR and other pertinent info. @ -74-year-old female with elevated blood pressure initial blood pressure is significantly elevated workup is performed including EKG, laboratory testing, chest x-ray. She is given antihypertensive both oral and IV medication in the emergency department as well as. Ativan for a level of anxiety. She will be observed for hypertensive urgency with cardiology on consult. Undiagnosed new problem with uncertain prognosis? @ -No Drug Therapy requiring intensive monitoring for toxicity (Heparin, Nitro, Insulin, Cardizem)? @ -No Were any procedures done? @ -No Diagnosis/symptom? @Hypertensive urgency Acute, or Chronic, or Acute on Chronic? @ -Acute Uncomplicated (without systemic symptoms) or Complicated (systemic symptoms)? @ -[Complicated Side effects of treatment? @ -No Exacerbation, Progression, or Severe Exacerbation? @ -No Poses a threat to life or bodily function? How? (Chest pain, [place], [place], pneumonia, PE, COPD, DKA, ARF, appy, cholecystitis, CVA, Diverticulitis, Homicidal, Reyes icidal, threat to staff... and all critical care pts) @Yes, end organ damage secondary to hypertensive emergency - Lab Data Result diagrams: 12/04/24 00:09 12/04/24 00:09 Lab Results 12/04/24 12/04/24 12/04/24 Range/Units 00:09 00:09 00:09 WBC 7.46 (4.50-10.00) 10*3/uL RBC 3.23 L (4.10-5.20) 10*6/uL Hgb 9.9 L (12.0-15.0) g/dL Hct 28.6 L (37.2-46.3) % MCV 88.5 (80.0-97.0) fL MCH 30.7 (27.0-32.0) pg MCHC 34.6 (32.0-37.0) g/dL Plt Count 311 (140-440) 10*3/uL MPV 9.0 L (9.5-12.2) fL Immature Gran % (Auto) 0.1 % Neutrophils % 58.3 % Lymphocytes % 29.2 % Monocytes % 8.8 % Eosinophils % 3.2 % Basophils % 0.4 % Immature Gran # 0.01 (0.00-0.04) 10*3/uL Neutrophils # 4.34 (1.80-7.70) 10*3/uL Lymphocytes # 2.18 (0.90-5.00) 10*3/uL Monocytes # 0.66 (0.20-1.00) 10*3/uL Eosinophils # 0.24 (0.04-0.35) 10*3/uL Basophils # 0.03 (0.00-0.10) 10*3/uL PT 9.9 L (10.0-12.5) sec INR 0.9 (<1.2) APTT 21.3 L (22.0-30.0) sec Sodium 131 L (137-145) mmol/L Potassium 5.2 H (3.5-5.1) mmol/L Chloride 102 (98-107) mmol/L Carbon Dioxide 19 L (22-30) mmol/L Anion Gap 10 mmol/L BUN 31 H (7-17) mg/dL Creatinine 1.59 H (0.52-1.04) mg/dL Est GFR (CKD-EPI)AfAm 36 (>60 ml/min/1.73 sqM) Est GFR (CKD-EPI)NonAf 32 (>60 ml/min/1.73 sqM) Glucose 88 (74-99) mg/dL Calcium 9.5 (8.4-10.2) mg/dL Magnesium 2.0 (1.6-2.3) mg/dL Total Bilirubin 0.3 (0.2-1.3) mg/dL AST 23 (14-36) U/L ALT 20 (4-34) U/L Alkaline Phosphatase 88 (38-126) U/L Troponin I (0.000-0.034) ng/mL Total Protein 6.2 L (6.3-8.2) g/dL Albumin 3.9 (3.5-5.0) g/dL 12/04/24 Range/Units 00:09 WBC (4.50-10.00) 10*3/uL RBC (4.10-5.20) 10*6/uL Hgb (12.0-15.0) g/dL Hct (37.2-46.3) % MCV (80.0-97.0) fL MCH (27.0-32.0) pg MCHC (32.0-37.0) g/dL Plt Count (140-440) 10*3/uL MPV (9.5-12.2) fL Immature Gran % (Auto) % Neutrophils % % Lymphocytes % % Monocytes % % Eosinophils % % Basophils % % Immature Gran # (0.00-0.04) 10*3/uL Neutrophils # (1.80-7.70) 10*3/uL Lymphocytes # (0.90-5.00) 10*3/uL Monocytes # (0.20-1.00) 10*3/uL Eosinophils # (0.04-0.35) 10*3/uL Basophils # (0.00-0.10) 10*3/uL PT (10.0-12.5) sec INR (<1.2) APTT (22.0-30.0) sec Sodium (137-145) mmol/L Potassium (3.5-5.1) mmol/L Chloride (98-107) mmol/L Carbon Dioxide (22-30) mmol/L Anion Gap mmol/L BUN (7-17) mg/dL Creatinine (0.52-1.04) mg/dL Est GFR (CKD-EPI)AfAm (>60 ml/min/1.73 sqM) Est GFR (CKD-EPI)NonAf (>60 ml/min/1.73 sqM) Glucose (74-99) mg/dL Calcium (8.4-10.2) mg/dL Magnesium (1.6-2.3) mg/dL Total Bilirubin (0.2-1.3) mg/dL AST (14-36) U/L ALT (4-34) U/L Alkaline Phosphatase (38-126) U/L Troponin I 0.025 (0.000-0.034) ng/mL Total Protein (6.3-8.2) g/dL Albumin (3.5-5.0) g/dL Critical Care Time Critical Care Time: Yes Total Critical Care Time: 35 Disposition Clinical Impression: Hypertensive urgency Disposition: ADMITTED IP TO THIS [facility] Condition: Stable Is patient prescribed a controlled substance at d/c from ED?: No Referrals: Edita Dominguez MD [Primary Care Provider] - 1-2 days Time of Disposition: 01:58
[2024-12-04 00:20] LABS: Basophils # (A) 0.03 10*3/uL (0.00-0.10); Basophils % (A) 0.4 %; Eosinophils # (A) 0.24 10*3/uL (0.04-0.35); Eosinophils % (A) 3.2 %; HCT 28.6 % (37.2-46.3); HGB 9.9 g/dL (12.0-15.0); Lymphocytes # (A) 2.18 10*3/uL (0.90-5.00); Lymphocytes % (A) 29.2 %; MCH 30.7 pg (27.0-32.0); MCHC 34.6 g/dL (32.0-37.0); MCV 88.5 fL (80.0-97.0); Monocytes # (A) 0.66 10*3/uL (0.20-1.00); Monocytes % (A) 8.8 %; Neutrophils # (A) 4.34 10*3/uL (1.80-7.70); Neutrophils % (A) 58.3 %; Platelet Count 311 10*3/uL (140-440); RBC 3.23 10*6/uL (4.10-5.20); RDW 13.9 % (11.5-14.5); WBC 7.46 10*3/uL (4.50-10.00)
[2024-12-04 00:32] LABS: ALT 20 U/L (4-34); AST 23 U/L (14-36); African American GFR (CKD) 36 (>60 ml/min/1.73 sqM); Albumin 3.9 g/dL (3.5-5.0); Alkaline Phosphatase 88 U/L (38-126); Anion Gap 10 mmol/L; Blood Urea Nitrogen 31 mg/dL (7-17); Calcium 9.5 mg/dL (8.4-10.2); Carbon Dioxide 19 mmol/L (22-30); Chloride 102 mmol/L (98-107); Glucose 88 mg/dL (74-99); Non-African American GFR(CKD) 32 (>60 ml/min/1.73 sqM); Potassium 5.2 mmol/L (3.5-5.1); Sodium 131 mmol/L (137-145); Total Bilirubin 0.3 mg/dL (0.2-1.3); Total Protein 6.2 g/dL (6.3-8.2)
[2024-12-04 00:38] LABS: INR 0.9 (<1.2); Partial Thromboplastin Time 21.3 sec (22.0-30.0); Prothrombin Time 9.9 sec (10.0-12.5)
[2024-12-04] MEDS: SODIUM CHLORIDE 0.9% 500 ML 500 ML IV ONE (01:12)
[2024-12-04] MEDS: LORazepam 1 MG/0.5 ML VIAL IV STA (01:15)
[2024-12-04] MEDS ORDERED: NALOXONE 0.4 MG/ML 1 ML VIAL IV PRN (01:54)
[2024-12-04] MEDS: SODIUM CHLORIDE 0.9% 1,000 ML IV SCH (02:58)
[2024-12-04] MEDS: amLODIPine 5 MG TAB PO STA (03:05)
[2024-12-04] MEDS: hydrALAZINE HCL 20 MG/ML 1 ML VIAL IVP STA (03:15)
[2024-12-04] MEDS: diphenhydrAMINE 25 MG CAP PO STA (05:03)
[2024-12-04] MEDS: LORazepam 0.5 MG TAB PO PRN (05:03)
--- NOTE | 2024-12-04 06:26 | XR ---
EXAMINATION TYPE: XR chest 2V DATE OF EXAM: 12/04/2024 CLINICAL INDICATION: Female, 74 years old with history of Chest Pain, TECHNIQUE: Frontal and lateral views of the chest are obtained. COMPARISON: Chest CT August 29, 2024 FINDINGS: There is chronic and edematous change is demonstrated with right upper lung scarring again seen. Right upper lung nodule likely remains present. There is no suspicious focal air space opacity , pleural effusion, or pneumothorax seen. Stable mild cardiomegaly with atherosclerotic change aortic knob. Stent graft in the abdominal aorta is redemonstrated. Scoliosis of the thoracolumbar spine is seen. IMPRESSION: Chronic changes and mild cardiomegaly without suspicious acute pulmonary process. [facility], , 12/04/2024 6:24 AM
[2024-12-04] MEDS: hydrALAZINE HCL 20 MG/ML 1 ML VIAL IVP PRN (06:39)
[2024-12-04] MEDS: lisinopriL 20 MG TAB PO SCH (07:40)
[2024-12-04] MEDS ORDERED: hydrALAZINE HCL 50 MG TAB PO SCH (09:00)
--- NOTE | 2024-12-04 09:21 | P.CRDCN ---
History of Present Illness History of present illness: HISTORY OF PRESENT ILLNESS: This is a 74-year-old female with a past medical history significant for hypertension, hyperlipidemia, coronary artery disease, and peripheral arterial disease. Patient follows in the office with Dr. Espino. We have been asked to see the patient in consultation for hypertension. Patient examined at the bedside in the emergency room. Patient presented to the hospital with a chief complaint of elevated blood pressures at home. Blood pressure reading of upon admission to the ER was 244/108. Patient states that she was recently changed from amlodipine to lisinopril and hydralazine. She reports feeling dizzy at home and also having a headache. She reports that she has been falling recently and is not very active on an outpatient basis. She currently denies chest pain or shortness of breath. Blood pressure this morning remains elevated with a read ing of 196/92. DIAGNOSTICS: - EKG reveals sinus mechanism with LVH. - Chest xray chronic changes and mild cardiomegaly without suspicious acute pulmonary process. - Laboratory data: WBC 7.46. Hemoglobin 9.9. Platelet count 311. Sodium 131. Potassium 5.2. BUN 31. Creatinine 1.59. Troponin negative x 1. - Current home cardiac medications include lisinopril 20 mg daily and hydralazine 50 mg twice a day - Most recent echocardiogram obtained in February 2024 revealed normal left ventricular size and systolic function with mild TR - Patient underwent Lexiscan stress test in January 2024 which was negative for ischemia - Cardiac catheterization history: March 2022 revealing diffuse three-vessel coronary artery disease without focal hemodynamically significant lesions. Medical management was recommended. REVIEW OF SYSTEMS: At the time of my exam: CONSTITUTIONAL: Denies fever or chills. HEENT: Denies blurred vision, vision changes, or eye pain. Denies hemoptysis CARDIOVASCULAR: Denies chest pain. Denies orthopnea. Denies PND. Denies palpitations RESPIRATORY: Denies shortness of breath. GASTROINTESTINAL: Denies abdominal pain. Denies nausea or vomiting. HEMATOLOGIC: Denies bleeding disorders. GENITOURINARY: Denies any blood in urine. SKIN: Denies pruitis. Denies rash. PHYSICAL EXAM: VITAL SIGNS: Reviewed. GENERAL: Well-developed in no acute distress. HEENT: Head is normocephalic. Pupils are equal, round. Sclerae anicteric. Mucous membranes of the mouth are moist. Neck supple. No JVD or thyromegaly LUNGS: Respirations even and unlabored. Lungs essentially clear to auscultation bilaterally. HEART: Regular rate and rhythm. S1 and S2 heard. ABDOMEN: Soft. Nondistended. Nontender. EXTREMITIES: Normal range of motion. No clubbing or cyanosis. Peripheral pulses intact. No lower extremity edema NEUROLOGIC: Awake and alert. Oriented x 3. ASSESSMENT: Hypertensive urgency History of coronary artery disease Peripheral arterial disease Hyperlipidemia Chronic kidney disease PLAN: Obtain 2D echo to assess cardiac structure and function Obtain renal artery Doppler to assess for renal artery stenosis Resume lisinopril 20 mg daily Resume hydralazine 50 mg. Increase frequency to 3 times a day Add amlodipine 10 mg daily Continue to monitor blood pressure Further recommendations pending patient course Nurse practitioner note has been reviewed by physician. Signing provider agrees with the documented findings, assessment, and plan of care documented by NUTRITIONAL HEALTH COACH as a scribe. Past Medical History Past Medical History: Chest Pain / Angina, Hyperlipidemia, Hypertension, Osteoarthritis (OA), Vascular Disorder Additional Past Medical History / Comment(s): has difficulty walking,aortic aneurysm,SOB,yesika leg swelling from knee down,ruptured disk,hemorrhage rt eye after cataract surgery, left leg stenting, recent stress test, recent adm. to [facility] for anemia-had transfusion, restless leg syndrome History of Any Multi-Drug Resistant Organisms: None Reported Additional Past Surgical History / Comment(s): Aortogram,yesika cataracts,laser surgery rt eye hemorrhage post cataract surg. Past Anesthesia/Blood Transfusion Reactions: No Reported Reaction Past Psychological History: No Psychological Hx Reported Smoking Status: Former smoker Past Alcohol Use History: None Reported Past Drug Use History: None Reported - Past Family History Mother Family Medical History: No Reported History Medications and Allergies Home Medications Medication Instructions Recorded Confirmed Type Simvastatin 40 mg PO HS 01/30/20 04/08/22 History amLODIPine BESYLATE 10 mg PO DAILY 01/30/20 04/08/22 History Isosorbide Mononitrate ER [Imdur] 30 mg PO DAILY 03/14/22 04/08/22 History Metoprolol Succinate (ER) [Toprol 50 mg PO DAILY 03/14/22 04/08/22 History XL] Aspirin 81 mg PO DAILY 90 Days #90 tab 03/20/22 04/08/22 Rx Ferrous Sulfate [Iron (65 MG 325 mg PO TID-W/MEALS 30 Days #90 03/20/22 04/08/22 Rx Elemental)] tab Losartan [Cozaar] 100 mg PO DAILY 30 Days #30 tab 03/20/22 04/08/22 Rx Pantoprazole Sodium [Protonix] 40 mg PO DAILY 30 Days #30 tab 03/20/22 04/08/22 Rx Allergies Allergy/AdvReac Type Severity Reaction Status Date / Time clopidogrel [From Plavix] Allergy Swelling Verified 12/03/24 23:25 guaifenesin [From Mucinex] Allergy Swelling Verified 12/03/24 23:25 steroids Allergy Swelling Uncoded 12/03/24 23:25 Physical Exam Vitals: Vital Signs Temp Pulse Resp BP Pulse Ox 12/04/24 07:34 88 20 196/92 95 12/04/24 06:45 81 216/93 12/04/24 06:27 98.2 F 93 18 226/101 95 12/04/24 05:02 75 213/86 12/04/24 04:00 221/96 12/04/24 03:50 74 231/95 12/04/24 03:30 72 230/103 12/04/24 03:00 71 18 232/103 97 12/03/24 23:51 98.1 F 86 20 236/92 96 12/03/24 23:21 97.9 F 89 18 244/108 97 Intake and Output 12/03/24 12/04/24 12/04/24 22:59 06:59 14:59 Other: Weight 47.174 kg Results 12/04/24 00:09 12/04/24 00:09 Cardiac Enzymes 12/04/24 12/04/24 Range/Units 00:09 00:09 AST 23 (14-36) U/L Troponin I 0.025 (0.000-0.034) ng/mL Coagulation 12/04/24 Range/Units 00:09 PT 9.9 L (10.0-12.5) sec APTT 21.3 L (22.0-30.0) sec CBC 12/04/24 Range/Units 00:09 WBC 7.46 (4.50-10.00) 10*3/uL RBC 3.23 L (4.10-5.20) 10*6/uL Hgb 9.9 L (12.0-15.0) g/dL Hct 28.6 L (37.2-46.3) % Plt Count 311 (140-440) 10*3/uL Comprehensive Metabolic Panel 12/04/24 Range/Units 00:09 Sodium 131 L (137-145) mmol/L Potassium 5.2 H (3.5-5.1) mmol/L Chloride 102 (98-107) mmol/L Carbon Dioxide 19 L (22-30) mmol/L BUN 31 H (7-17) mg/dL Creatinine 1.59 H (0.52-1.04) mg/dL Glucose 88 (74-99) mg/dL Calcium 9.5 (8.4-10.2) mg/dL AST 23 (14-36) U/L ALT 20 (4-34) U/L Alkaline Phosphatase 88 (38-126) U/L Total Protein 6.2 L (6.3-8.2) g/dL Albumin 3.9 (3.5-5.0) g/dL Current Medications Generic Name Dose Route Start Last Admin Trade Name Freq PRN Reason Stop Dose Admin Acetaminophen 650 mg 12/04/24 01:54 Acetaminophen Tab 325 Mg Tab PO Q6HR PRN Mild Pain or Fever > 100.5 Amlodipine Besylate 10 mg 12/04/24 09:00 Amlodipine 10 Mg Tab PO DAILY PETE Hydralazine HCl 10 mg 12/04/24 01:53 12/04/24 06:39 Hydralazine Hcl 20 Mg/Ml 1 Ml Vial IVP 10 mg Q6HR PRN Administration Blood Pressure - High Hydralazine HCl 50 mg 12/04/24 09:00 Hydralazine Hcl 50 Mg Tab PO TID PETE Sodium Chloride 1,000 mls @ 75 mls/hr 12/04/24 02:00 12/04/24 02:58 Saline 0.9% IV 75 mls/hr .[id number] PETE Administration Lisinopril 20 mg 12/04/24 09:00 12/04/24 07:40 Lisinopril 20 Mg Tab PO 20 mg DAILY PETE Administration Lorazepam 0.5 mg 12/04/24 01:54 12/04/24 05:03 Lorazepam 0.5 Mg Tab PO 0.5 mg Q6HR PRN Administration Anxiety Naloxone HCl 0.2 mg 12/04/24 01:54 Naloxone 0.4 Mg/Ml 1 Ml Vial IV Q2M PRN Opioid Reversal Intake and Output 12/03/24 12/04/24 12/04/24 22:59 06:59 14:59 Other: Weight 47.174 kg 12/04/24 00:09 12/04/24 00:09
[2024-12-04] MEDS: hydrALAZINE HCL 50 MG TAB PO SCH (09:31)
[2024-12-04] MEDS: amLODIPine 10 MG TAB PO SCH (09:31)
[2024-12-04] MEDS: ASPIRIN 81 MG PO SCH (09:33)
--- NOTE | 2024-12-04 09:57 | US ---
EXAMINATION TYPE: US renal artery duplex complete DATE OF EXAM: 12/04/2024 COMPARISON: None CLINICAL INDICATION: Female, 74 years old with history of HTN, r/o renal artery stenosis; Hypertensio n. Hx patient had an AAA repair last year. TECHNIQUE: Grayscale, color Doppler and spectral Doppler imaging of the bilateral renal arteries and kidneys. FINDINGS: MEASUREMENTS: RENAL SIZE: Right Kidney: 10.0 x 4.5 x 3.9 cm Left Kidney: 7.3 x 3.8 x 4.2 cm No hydronephrosis on either side. Right Kidney: Cyst at the upper pole: 1.3 x 1.3 x 1.4 cm. Left Kidney: Appears small in size. *Multiple cysts seen, largest is hypoechoic at the midpole: 2.2 x 2.0 x 1.3 cm. Abd Aorta: Post AAA- repair. Mid appears ectatic at 2.7 x 2.8 cm. RESISTANCE INDEX Right: 0.67 Left: 0.66 RA/AO RATIO (< 3.5 ) Right: 4.8 Left: 0.7 RENAL ARTERY VELOCITY ( < 180 cm/s) Right: 357.2 cm/s Left: 49.8 cm/s Physical Security Specialist Notes: Exam is very limited due to gas and pt's difficulty taking in breaths. Elevated velocity prox right renal artery. ?There appears to be delayed upstroke in lower right interlobar artery- acceleration times appear delayed 0.11 s. Unable to visualize proximal left renal artery. It was very difficult to show interlobar clear wav eforms due to movement. Only mid interlobar clear waveform shown. ?Question slightly delayed upstroke left interlobar artery. IMPRESSION: 1. Doppler characteristics suggests the presence of renal artery stenosis on the right. 2. Limited assessment on the left; unable to visualize the proximal left renal artery. Given the poss ibility of some intrarenal parvus tardus waveform on the left, assessment on the left remains indeter minate/equivocal. 3. Patient is status post AAA repair. The midabdominal aorta is ectatic at 2.8 cm. 4. Indeterminate 2.2 cm cortical lesion mid pole left kidney. Probable cyst with internal echoes repr esenting artifact or debris. Recommend three-month follow-up ultrasound to reassess and attempt more accurate characterization. [facility], , 12/04/2024 9:54 AM
--- NOTE | 2024-12-04 12:40 | CA ---
Transthoracic Echo Report Name: Henny Camargo Age: 74 Gender: F : 1950 Exam Date: 12/04/2024 09:34 Exam Location: [facility] Ht (in): 62 Wt (lb): 104 Ordering Physician: Zakia Red Attending/Referring Phys: [id number], Teofilo [employer] Clerk Rochelle Jackson, JACKI Procedure CPT: Indications: LV function, HTN Cardiac Hx: htn ,high chol Technical Quality: Good Contrast 1: Total Dose (mL): Contrast 2: Total Dose (mL): MEASUREMENTS (Male / Female) Normal Values 2D ECHO LV Diastolic Diameter PLAX 4.7 cm 4.2 - 5.9 / 3.9 - 5.3 cm LV Systolic Diameter PLAX 2.7 cm IVS Diastolic Thickness 1.0 cm 0.6 - 1.0 / 0.6 - 0.9 cm LVPW Diastolic Thickness 1.1 cm 0.6 - 1.0 / 0.6 - 0.9 cm LV Relative Wall Thickness 0.5 RV Internal Dim ED PLAX 3.5 cm LA Systolic Diameter LX 3.0 cm 3.0 - 4.0 / 2.7 - 3.8 cm LV Diastolic Volume MOD 4C 96.5 cm??? LV Systolic Volume MOD 4C 43.0 cm??? LV Ejection Fraction MOD 4C 55.4 % LV Cardiac Index MOD 4C 3433.9 cm???/min???m??? LV Diastolic Length 4C 7.2 cm LV Systolic Length 4C 5.8 cm LV Diastolic Volume MOD 2C 76.6 cm??? LV Systolic Volume MOD 2C 39.4 cm??? LV Ejection Fraction MOD 2C 48.5 % LV Cardiac Index MOD 2C 2385.4 cm???/min???m??? LV Diastolic Length 2C 7.5 cm LV Systolic Length 2C 6.1 cm LA Volume 50.3 cm??? 18 - 58 / 22 - 52 cm??? LA Volume Index 35.1 cm???/m??? 16 - 28 cm???/m??? M-MODE Aortic Root Diameter MM 2.9 cm AV Cusp Separation MM 1.8 cm DOPPLER AV Peak Velocity 199.8 cm/s AV Peak Gradient 16.0 mmHg AV Mean Velocity 127.6 cm/s AV Mean Gradient 7.5 mmHg AV Velocity Time Integral 45.3 cm MV Area PHT 3.7 cm??? Mitral E Point Velocity 90.7 cm/s Mitral A Point Velocity 131.7 cm/s Mitral E to A Ratio 0.7 MV Deceleration Time 206.6 ms TR Peak Velocity 263.0 cm/s TR Peak Gradient 27.7 mmHg Right Ventricular Systolic Press 32.7 mmHg FINDINGS Left Ventricle Left ventricular ejection fraction is estimated at 55-60 %. Left ventricular cavity size normal. Mildly increased septal wall thickness. Mildly increased posterior wall thickness. Normal left ventricular wall motion. Right Ventricle Mild right ventricular dilatation. Right ventricular systolic pressure within normal limits. Right Atrium Normal right atrial size. No right atrial thrombus or mass seen. Left Atrium Moderately increased left atrial volume. Mildly increased left atrial area. No left atrial thrombus or mass present. Mitral Valve Structurally normal mitral valve. Mitral annular calcification. No mitral stenosis, regurgitation or prolapse. Aortic Valve Trileaflet aortic valve. No aortic stenosis. Trace aortic regurgitation. Tricuspid Valve Structurally normal tricuspid valve. Mild tricuspid regurgitation. Pulmonic Valve Structurally normal pulmonic valve. Trace pulmonic regurgitation. Pericardium No pericardial effusion. Aorta Normal size aortic root and proximal ascending aorta. CONCLUSIONS Normal LV size and systolic function. Mild to moderate concentric LVH. No elevation of PA pressures. Mildly enlarged left atrium. Mitral annular calcification and aortic valve sclerosis without restriction. Mild mitral regurgitation. No pericardial effusion Previewed by: Dr. Carlos Manuel Weiner MD (Electronically Signed) Final Date: 04 Dec 2024 12:39
--- NOTE | 2024-12-04 17:46 | P.HPIM ---
History of Present Illness H&P Date: 12/04/24 Henny Camargo, is a 74-year-old female who presented to [facility] emergency room with a chief complaint of severely elevated blood pressure She was evaluated in the emergency room vital examination on presentation revealed a temperature of 97.9 pulse 89 respiration 18 blood pressure 244/108 pulse ox 97% on room air Laboratory data reveals a white blood count of 7.46 hemoglobin 9.9 platelet count 311 sodium 131 potassium 5.2 BUN 31 creatinine 1.59 Testing in the emergency room revealed chest x-ray done in the emergency room revealed mild cardiomegaly without suspicious acute pulmonary process, EKG revealed sinus rhythm with normal EKG Patient was admitted to medical floor for further evaluation and treatment Past medical history is significant for history of hypertension, history of hyperlipidemia, history of chest pain, history of osteoarthritis, history of aortic aneurysm, history of peripheral vascular disease with left leg stent placement, patient is a former smoker On review of systems patient is alert and oriented x 3 in no apparent distress there is no fever or chills no headache or dizziness no chest pain no shortness of breath no cough no nausea or vomiting no abdominal pain no diarrhea no blood in the stools no burning with urination no frequency or urgency no hematuria Past Medical History Past Medical History: Chest Pain / Angina, Hyperlipidemia, Hypertension, Osteoarthritis (OA), Vascular Disorder Additional Past Medical History / Comment(s): has difficulty walking,aortic an eurysm,SOB,yesika leg swelling from knee down,ruptured disk,hemorrhage rt eye after cataract surgery, left leg stenting, recent stress test, recent adm. to [facility] for anemia-had transfusion, restless leg syndrome History of Any Multi-Drug Resistant Organisms: None Reported Additional Past Surgical History / Comment(s): Aortogram,yesika cataracts,laser surgery rt eye hemorrhage post cataract surg. Past Anesthesia/Blood Transfusion Reactions: No Reported Reaction Past Psychological History: No Psychological Hx Reported Smoking Status: Former smoker Past Alcohol Use History: None Reported Past Drug Use History: None Reported - Past Family History Mother Family Medical History: No Reported History Medications and Allergies Home Medications Medication Instructions Recorded Confirmed Type Simvastatin 40 mg PO HS 01/30/20 12/04/24 History amLODIPine BESYLATE 10 mg PO DAILY 01/30/20 12/04/24 History Isosorbide Mononitrate ER [Imdur] 30 mg PO DAILY 03/14/22 12/04/24 History Aspirin 81 mg PO DAILY 90 Days #90 tab 03/20/22 12/04/24 Rx Pantoprazole Sodium [Protonix] 40 mg PO DAILY 30 Days #30 tab 03/20/22 12/04/24 Rx Fluticasone/Umeclidin/Vilanter 1 puff INHALATION RT-DAILY 12/04/24 12/04/24 History [Trelegy Ellipta 100-62.5-25] Furosemide [Lasix] 20 mg PO DAILY 12/04/24 12/04/24 History Metoprolol Succinate (ER) [Toprol 25 mg PO DAILY 12/04/24 12/04/24 History Xl] Multivit/Iron Sulf/Folic Acid 1 tab PO DAILY 12/04/24 12/04/24 History [Multivitamin with Iron] Vitamin B Complex 1 cap PO DAILY 12/04/24 12/04/24 History hydrALAZINE HCL [Apresoline] 50 mg PO BID-W/MEALS 12/04/24 12/04/24 History lisinopriL [Zestril] 20 mg PO BID 12/04/24 12/04/24 History rOPINIRole HCL [Requip] 0.25 - 0.5 mg PO HS 12/04/24 12/04/24 History Allergies Allergy/AdvReac Type Severity Reaction Status Date / Time clopidogrel [From Plavix] Allergy Swelling Verified 12/04/24 11:07 guaifenesin [From Mucinex] Allergy Swelling Verified 12/04/24 11:07 steroids Allergy Swelling Uncoded 12/04/24 11:07 Physical Exam Vitals: Vital Signs Temp Pulse Resp BP Pulse Ox 12/04/24 07:34 88 20 196/92 95 12/04/24 06:45 81 216/93 12/04/24 06:27 98.2 F 93 18 226/101 95 12/04/24 05:02 75 213/86 12/04/24 04:00 221/96 12/04/24 03:50 74 231/95 12/04/24 03:30 72 230/103 12/04/24 03:00 71 18 232/103 97 12/03/24 23:51 98.1 F 86 20 236/92 96 12/03/24 23:21 97.9 F 89 18 244/108 97 Intake and Output 12/03/24 12/04/24 12/04/24 22:59 06:59 14:59 Other: Weight 47.174 kg In general patient is alert and oriented x 3 in no distress HEENT head normocephalic and atraumatic Neck is supple no JVD no goiter no lymphadenopathy no carotid bruit Chest examination is clear to auscultation no crackles no wheezing Cardiac exam reveals regular heart sounds S1 and S2 no gallops no murmurs Abdomen is soft nontender no organomegaly with normal bowel sounds Extremity exam reveals no edema no cyanosis or clubbing Neurological examination reveals no gross focal deficits Results CBC & Chem 7: 12/04/24 00:09 12/04/24 00:09 Labs: Abnormal Lab Results - Last 24 Hours (Table) 12/04/24 12/04/24 12/04/24 Range/Units 00:09 00:09 00:09 RBC 3.23 L (4.10-5.20) 10*6/uL Hgb 9.9 L (12.0-15.0) g/dL Hct 28.6 L (37.2-46.3) % MPV 9.0 L (9.5-12.2) fL PT 9.9 L (10.0-12.5) sec APTT 21.3 L (22.0-30.0) sec Sodium 131 L (137-145) mmol/L Potassium 5.2 H (3.5-5.1) mmol/L Carbon Dioxide 19 L (22-30) mmol/L BUN 31 H (7-17) mg/dL Creatinine 1.59 H (0.52-1.04) mg/dL Total Protein 6.2 L (6.3-8.2) g/dL Assessment and Plan Plan: Hypertensive emergency Underlying history of hypertension Underlying history of hyperlipidemia Underlying history of peripheral vascular disease Underlying history of aortic aneurysm Underlying history of osteoarthritis At this time patient was seen and examined Home medications reviewed and reordered Patient was given IV hydralazine in the emergency room Blood pressure medications are being adjusted Echocardiogram and renal artery ultrasound were ordered Cardiology consultation was requested Will follow closely
[2024-12-04] MEDS: ATORVASTATIN 40 MG TAB PO SCH (19:41)
[2024-12-04] MEDS: ACETAMINOPHEN TAB 325 MG TAB PO PRN (19:41)
[2024-12-04] MEDS: cloNIDine HCL 0.1 MG TAB PO SCH (23:17)
[2024-12-04] MEDS: diphenhydrAMINE 50 MG/ML 1 ML VIAL IVP PRN (23:17)
[2024-12-05] MEDS: PANTOPRAZOLE 40 MG TABLET PO SCH (06:35)
[2024-12-05] MEDS: hydrALAZINE HCL 50 MG TAB PO SCH ×2 (06:35→15:43)
[2024-12-05 06:56] LABS: Basophils # (A) 0.03 10*3/uL (0.00-0.10); Basophils % (A) 0.7 %; Eosinophils # (A) 0.46 10*3/uL (0.04-0.35); HGB 8.6 g/dL (12.0-15.0); Lymphocytes # (A) 1.36 10*3/uL (0.90-5.00); Lymphocytes % (A) 29.7 %; MCH 29.8 pg (27.0-32.0); MCHC 33.1 g/dL (32.0-37.0); Mean Platelet Volume 8.9 fL (9.5-12.2); Monocytes % (A) 10.9 %; Neutrophils # (A) 2.22 10*3/uL (1.80-7.70); Neutrophils % (A) 48.5 %; Platelet Count 260 10*3/uL (140-440); RBC 2.89 10*6/uL (4.10-5.20); RDW 14.2 % (11.5-14.5); WBC 4.58 10*3/uL (4.50-10.00)
[2024-12-05 07:16] LABS: ALT 15 U/L (4-34); AST 18 U/L (14-36); African American GFR (CKD) 36 (>60 ml/min/1.73 sqM); Alkaline Phosphatase 60 U/L (38-126); Anion Gap 6 mmol/L; Blood Urea Nitrogen 27 mg/dL (7-17); Calcium 9.1 mg/dL (8.4-10.2); Carbon Dioxide 18 mmol/L (22-30); Chloride 111 mmol/L (98-107); Glucose 78 mg/dL (74-99); Non-African American GFR(CKD) 31 (>60 ml/min/1.73 sqM); Potassium 5.2 mmol/L (3.5-5.1); Sodium 135 mmol/L (137-145); Total Bilirubin 0.4 mg/dL (0.2-1.3); Total Protein 5.1 g/dL (6.3-8.2)
[2024-12-05] MEDS: SYMBICORT 160-4.5 MCG INHALER INHALATION SCH (08:13)
[2024-12-05] MEDS ORDERED: ISOSORBIDE MONONITRATE ER 30 MG TAB.ER.24H PO SCH (09:00)
[2024-12-05] MEDS ORDERED: NON FORMULARY DRUG (Vitamin B Complex [Vitamin B Complex] 1 EACH Capsule) PO SCH (09:00)
[2024-12-05] MEDS: FUROSEMIDE 20 MG TAB PO SCH (09:08)
[2024-12-05] MEDS: METOPROLOL SUCCINATE (ER) 25 MG TAB.ER.24H PO SCH (09:08)
[2024-12-05] MEDS: ISOSORBIDE MONONITRATE ER 60 MG TAB.ER.24H PO SCH (09:09)
[2024-12-05] MEDS: MULTIVITAMINS, THERA 1 EACH TAB PO SCH (09:09)
[2024-12-05] MEDS: ENOXAPARIN 40 MG/0.4 ML SYRINGE SQ SCH (09:10)
--- NOTE | 2024-12-05 09:12 | P.PN ---
Subjective Progress Note Date: 12/05/24 Henny Camargo, is a 74-year-old female who presented to [facility] emergency room with a chief complaint of severely elevated blood pressure She was evaluated in the emergency room vital examination on presentation revealed a temperature of 97.9 pulse 89 respiration 18 blood pressure 244/108 pulse ox 97% on room air Laboratory data reveals a white blood count of 7.46 hemoglobin 9.9 platelet count 311 sodium 131 potassium 5.2 BUN 31 creatinine 1.59 Testing in the emergency room revealed chest x-ray done in the emergency room revealed mild cardiomegaly without suspicious acute pulmonary process, EKG revealed sinus rhythm with normal EKG Patient was admitted to medical floor for further evaluation and treatment Past medical history is significant for history of hypertension, history of hyperlipidemia, history of chest pain, history of osteoarthritis, history of aortic aneurysm, history of peripheral vascular disease with left leg stent placement, patient is a former smoker On review of systems patient is alert and oriented x 3 in no apparent distress there is no fever or chills no headache or dizziness no chest pain no shortness of breath no cough no nausea or vomiting no abdominal pain no diarrhea no blood in the stools no burning with urination no frequency or urgency no hematuria On 12/05/2024 patient is alert and oriented x 3. Patient still having elevated blood pressure. Vascular surgery has been consulted to rule out renal artery stenosis. Current vital signs temp 98.1, heart rate 64, respiratory rate 18, blood pressure 180/76 with pulse ox of 96 on room air. Cardiology services are following. Patient denies chest pain or shortness of breath. Patient denies nausea vomiting or diarrhea. Patient denies any urinary burning or frequency Objective - Vital Signs Vital signs: Vital Signs Temp 98.1 F 12/05/24 04:00 Pulse 64 12/05/24 04:00 Resp 18 12/04/24 22:58 BP 189/79 12/05/24 06:30 Pulse Ox 96 12/05/24 04:00 FiO2 Intake & Output 12/04/24 12/05/24 12/05/24 18:59 06:59 18:59 Intake Total 240 Balance 240 Weight 47.174 kg 50 kg Intake: Oral 240 Other: Voiding Method Toilet # Voids 3 - Labs CBC & Chem 7: 12/05/24 06:37 12/05/24 06:37 Labs: Abnormal Lab Results - Last 24 Hours (Table) 12/05/24 12/05/24 Range/Units 06:37 06:37 RBC 2.89 L (4.10-5.20) 10*6/uL Hgb 8.6 L (12.0-15.0) g/dL Hct 26.0 L (37.2-46.3) % MPV 8.9 L (9.5-12.2) fL Eosinophils # 0.46 H (0.04-0.35) 10*3/uL Sodium 135 L (137-145) mmol/L Potassium 5.2 H (3.5-5.1) mmol/L Chloride 111 H (98-107) mmol/L Carbon Dioxide 18 L (22-30) mmol/L BUN 27 H (7-17) mg/dL Creatinine 1.60 H (0.52-1.04) mg/dL Total Protein 5.1 L (6.3-8.2) g/dL Albumin 3.0 L (3.5-5.0) g/dL Assessment and Plan Plan: Hypertensive emergency Underlying history of hypertension Underlying history of hyperlipidemia Underlying history of peripheral vascular disease Underlying history of aortic aneurysm Underlying history of osteoarthritis At this time patient was seen and examined Home medications reviewed and reordered Patient was given IV hydralazine in the emergency room Blood pressure medications are being adjusted Echocardiogram and renal artery ultrasound were ordered Cardiology consultation was requested Will follow closely
--- NOTE | 2024-12-05 11:10 | P.PN ---
Subjective HISTORY OF PRESENT ILLNESS: This is a 74-year-old female with a past medical history significant for hypertension, hyperlipidemia, coronary artery disease, and peripheral arterial disease. Patient follows in the office with Dr. Espino. We have been asked to see the patient in consultation for hypertension. Patient examined at the bedside in the emergency room. Patient presented to the hospital with a chief complaint of elevated blood pressures at home. Blood pressure reading of upon admission to the ER was 244/108. Patient states that she was recently changed from amlodipine to lisinopril and hydralazine. She reports feeling dizzy at home and also having a headache. She reports that she has been falling recently and is not very active on an outpatient basis. She currently denies chest pain or shortness of breath. Blood pressure this morning remains elevated with a reading of 196/92. DIAGNOSTICS: - EKG reveals sinus mechanism with LVH. - Chest xray chronic changes and mild cardiomegaly without suspicious acute pulmonary process. - Laboratory data: WBC 7.46. Hemoglobin 9.9. Platelet count 311. Sodium 131. Potassium 5.2. BUN 31. Creatinine 1.59. Troponin negative x 1. - Current home cardiac medications include lisinopril 20 mg daily and hydralazine 50 mg twice a day - Most recent echocardiogram obtained in February 2024 revealed normal left ventricular size and systolic function with mild TR - Patient underwent Lexiscan stress test in January 2024 which was negative for ischemia - Cardiac catheterization history: March 2022 revealing diffuse three-vessel coronary artery disease without focal hemodynamically significant lesions. Medical management was recommended. 12/05/2024 Patient examined this morning at bedside. Patient currently denies chest pain or pressure. She denies shortness of breath. Blood pressures remain elevated with a systolic tween [id number]. Renal artery ultrasound performed revealing evidence of right renal artery stenosis. Echocardiogram performed revealing ejection fraction 55 to 60% with trace AI and mild TR PHYSICAL EXAM: VITAL SIGNS: Reviewed. GENERAL: Well-developed in no acute distress. HEENT: Head is normocephalic. Pupils are equal, round. Sclerae anicteric. Mucous membranes of the mouth are moist. Neck supple. No JVD or thyromegaly LUNGS: Respirations even and unlabored. Lungs essentially clear to auscultation bilaterally. HEART: Regular rate and rhythm. S1 and S2 heard. ABDOMEN: Soft. Nondistended. Nontender. EXTREMITIES: Normal range of motion. No clubbing or cyanosis. Peripheral pulses intact. No lower extremity edema NEUROLOGIC: Awake and alert. Oriented x 3. ASSESSMENT: Hypertensive urgency History of coronary artery disease Peripheral arterial disease with previous lower extremity invention Hyperlipidemia Chronic kidney disease History of AAA repair, 2023 Right renal artery stenosis PLAN: Increase hydralazine to 100 mg 3 times daily Continue additional cardiac medications Continue to monitor blood pressure N.p.o. at midnight Patient to undergo renal artery angiogram with possible stenting tomorrow with Dr. Bueno Further recommendations pending patient course Nurse practitioner note has been reviewed by physician. Signing provider agrees with the documented findings, assessment, and plan of care documented by ADDICTION PROFESSIONAL as a scribe. Objective - Vital Signs Vital signs: Vital Signs Temp 98.1 F 12/05/24 04:00 Pulse 68 12/05/24 08:00 Resp 16 12/05/24 08:00 BP 176/63 12/05/24 08:00 Pulse Ox 95 12/05/24 08:00 FiO2 Intake & Output 12/04/24 12/05/24 12/05/24 18:59 06:59 18:59 Intake Total 240 Balance 240 Weight 47.174 kg 50 kg Intake: Oral 240 Other: Voiding Method Toilet Toilet # Voids 3 - Labs CBC & Chem 7: 12/05/24 06:37 12/05/24 06:37 Labs: Abnormal Lab Results - Last 24 Hours (Table) 12/05/24 12/05/24 Range/Units 06:37 06:37 RBC 2.89 L (4.10-5.20) 10*6/uL Hgb 8.6 L (12.0-15.0) g/dL Hct 26.0 L (37.2-46.3) % MPV 8.9 L (9.5-12.2) fL Eosinophils # 0.46 H (0.04-0.35) 10*3/uL Sodium 135 L (137-145) mmol/L Potassium 5.2 H (3.5-5.1) mmol/L Chloride 111 H (98-107) mmol/L Carbon Dioxide 18 L (22-30) mmol/L BUN 27 H (7-17) mg/dL Creatinine 1.60 H (0.52-1.04) mg/dL Total Protein 5.1 L (6.3-8.2) g/dL Albumin 3.0 L (3.5-5.0) g/dL
[2024-12-05] MEDS: lisinopriL 20 MG TAB PO SCH (11:39)
[2024-12-05] MEDS: ASPIRIN 81 MG PO SCH (13:10)
[2024-12-05] MEDS: amLODIPine 10 MG TAB PO SCH (13:12)
[2024-12-05] MEDS ORDERED: ATORVASTATIN 20 MG TAB PO SCH (21:00)
[2024-12-06] MEDS: ENOXAPARIN 30 MG/0.3 ML SYRINGE SQ SCH (06:58)
[2024-12-06 07:19] LABS: Basophils # (A) 0.04 10*3/uL (0.00-0.10); Basophils % (A) 0.7 %; Eosinophils # (A) 0.49 10*3/uL (0.04-0.35); Eosinophils % (A) 8.4 %; HCT 28.3 % (37.2-46.3); HGB 9.5 g/dL (12.0-15.0); Lymphocytes # (A) 1.53 10*3/uL (0.90-5.00); Lymphocytes % (A) 26.3 %; MCH 30.3 pg (27.0-32.0); MCHC 33.6 g/dL (32.0-37.0); MCV 90.1 fL (80.0-97.0); Mean Platelet Volume 9.1 fL (9.5-12.2); Monocytes # (A) 0.41 10*3/uL (0.20-1.00); Neutrophils # (A) 3.35 10*3/uL (1.80-7.70); Neutrophils % (A) 57.6 %; Platelet Count 289 10*3/uL (140-440); RBC 3.14 10*6/uL (4.10-5.20); RDW 14.1 % (11.5-14.5); WBC 5.82 10*3/uL (4.50-10.00)
[2024-12-06 07:24] LABS: ALT 18 U/L (4-34); AST 21 U/L (14-36); African American GFR (CKD) 42 (>60 ml/min/1.73 sqM); Albumin 3.3 g/dL (3.5-5.0); Alkaline Phosphatase 71 U/L (38-126); Anion Gap 8 mmol/L; Blood Urea Nitrogen 29 mg/dL (7-17); Calcium 9.9 mg/dL (8.4-10.2); Carbon Dioxide 18 mmol/L (22-30); Chloride 108 mmol/L (98-107); Glucose 77 mg/dL (74-99); Non-African American GFR(CKD) 36 (>60 ml/min/1.73 sqM); Potassium 5.1 mmol/L (3.5-5.1); Sodium 134 mmol/L (137-145); Total Bilirubin 0.3 mg/dL (0.2-1.3); Total Protein 5.5 g/dL (6.3-8.2)
--- NOTE | 2024-12-06 09:03 | P.PN ---
Subjective Progress Note Date: 12/06/24 Henny Camargo, is a 74-year-old female who presented to [facility] emergency room with a chief complaint of severely elevated blood pressure She was evaluated in the emergency room vital examination on presentation revealed a temperature of 97.9 pulse 89 respiration 18 blood pressure 244/108 pulse ox 97% on room air Laboratory data reveals a white blood count of 7.46 hemoglobin 9.9 platelet count 311 sodium 131 potassium 5.2 BUN 31 creatinine 1.59 Testing in the emergency room revealed chest x-ray done in the emergency room revealed mild cardiomegaly without suspicious acute pulmonary process, EKG revealed sinus rhythm with normal EKG Patient was admitted to medical floor for further evaluation and treatment Past medical history is significant for history of hypertension, history of hyperlipidemia, history of chest pain, history of osteoarthritis, history of aortic aneurysm, history of peripheral vascular disease with left leg stent placement, patient is a former smoker On review of systems patient is alert and oriented x 3 in no apparent distress there is no fever or chills no headache or dizziness no chest pain no shortness of breath no cough no nausea or vomiting no abdominal pain no diarrhea no blood in the stools no burning with urination no frequency or urgency no hematuria On 12/05/2024 patient is alert and oriented x 3. Patient still having elevated blood pressure. Vascular surgery has been consulted to rule out renal artery stenosis. Current vital signs temp 98.1, heart rate 64, respiratory rate 18, blood pressure 180/76 with pulse ox of 96 on room air. Cardiology services are following. Patient denies chest pain or shortness of breath. Patient denies nausea vomiting or diarrhea. Patient denies any urinary burning or frequency On 12/06/2024 patient is alert and oriented x 3. Blood pressure has improved current temp 97.9, heart 56, respiratory rate 16, blood pressure 125/55 with pulse ox of 93% on room air lands today for angiogram and stenting with Dr. Graves. Patient denies chest pain or shortness of breath. Patient denies nausea vomiting or diarrhea. Patient denies any urinary burning or frequency Objective - Vital Signs Vital signs: Vital Signs Temp 97.9 F 12/06/24 08:00 Pulse 56 L 12/06/24 08:00 Resp 16 12/06/24 08:00 BP 125/55 12/06/24 08:00 Pulse Ox 93 L 12/06/24 08:00 FiO2 Intake & Output 12/05/24 12/06/24 12/06/24 18:59 06:59 18:59 Intake Total 1320 Balance 1320 Weight 48.6 kg Intake: Intake, IV Titration 600 Amount Sodium Chloride 0.9% 1, 600 000 ml @ 75 mls/hr IV . [id number] Rx#:[id number] Oral 720 Other: Voiding Method Toilet Toilet # Voids 1 - Exam Head normocephalic Neck supple Lungs clear to auscultation bilaterally no wheezing or crackles Heart regular rate and rhythm S1-S2, no rub or gallop Abdomen is soft nontender nondistended positive bowel sounds no hepatosp lenomegaly Extremities no edema Neuro alert and orientated to 3 - Labs CBC & Chem 7: 12/06/24 06:47 12/06/24 06:47 Labs: Abnormal Lab Results - Last 24 Hours (Table) 12/06/24 12/06/24 Range/Units 06:47 06:47 RBC 3.14 L (4.10-5.20) 10*6/uL Hgb 9.5 L (12.0-15.0) g/dL Hct 28.3 L (37.2-46.3) % MPV 9.1 L (9.5-12.2) fL Eosinophils # 0.49 H (0.04-0.35) 10*3/uL Sodium 134 L (137-145) mmol/L Chloride 108 H (98-107) mmol/L Carbon Dioxide 18 L (22-30) mmol/L BUN 29 H (7-17) mg/dL Creatinine 1.42 H (0.52-1.04) mg/dL Total Protein 5.5 L (6.3-8.2) g/dL Albumin 3.3 L (3.5-5.0) g/dL Assessment and Plan Plan: Hypertensive emergency Underlying history of hypertension Underlying history of hyperlipidemia Underlying history of peripheral vascular disease Underlying history of aortic aneurysm Underlying history of osteoarthritis At this time patient was seen and examined Home medications reviewed and reordered Patient was given IV hydralazine in the emergency room Blood pressure medications are being adjusted Echocardiogram and renal artery ultrasound were ordered Renal arterial ureter angiogram with possible stenting on 12/06/2024 Cardiology consultation was requested Will follow closely
--- NOTE | 2024-12-06 10:12 | P.PN ---
Subjective HISTORY OF PRESENT ILLNESS: This is a 74-year-old female with a past medical history significant for hypertension, hyperlipidemia, coronary artery disease, and peripheral arterial disease. Patient follows in the office with Dr. Espino. We have been asked to see the patient in consultation for hypertension. Patient examined at the bedside in the emergency room. Patient presented to the hospital with a chief complaint of elevated blood pressures at home. Blood pressure reading of upon admission to the ER was 244/108. Patient states that she was recently changed from amlodipine to lisinopril and hydralazine. She reports feeling dizzy at home and also having a headache. She reports that she has been falling recently and is not very active on an outpatient basis. She currently denies chest pain or shortness of breath. Blood pressure this morning remains elevated with a reading of 196/92. DIAGNOSTICS: - EKG reveals sinus mechanism with LVH. - Chest xray chronic changes and mild cardiomegaly without suspicious acute pulmonary process. - Laboratory data: WBC 7.46. Hemoglobin 9.9. Platelet count 311. Sodium 131. Potassium 5.2. BUN 31. Creatinine 1.59. Troponin negative x 1. - Current home cardiac medications include lisinopril 20 mg daily and hydralazine 50 mg twice a day - Most recent echocardiogram obtained in February 2024 revealed normal left ventricular size and systolic function with mild TR - Patient underwent Lexiscan stress test in January 2024 which was negative for ischemia - Cardiac catheterization history: March 2022 revealing diffuse three-vessel coronary artery disease without focal hemodynamically significant lesions. Medical management was recommended. 12/05/2024 Patient examined this morning at bedside. Patient currently denies chest pain or pressure. She denies shortness of breath. Blood pressures remain elevated with a systolic tween [id number]. Renal artery ultrasound performed revealing evidence of right renal artery stenosis. Echocardiogram performed revealing ejection fraction 55 to 60% with trace AI and mild TR 12/06/2024 Patient examined this morning to bedside. Patient denies chest pain or pressure. She denies shortness of breath. Blood pressure this morning 125/55. PHYSICAL EXAM: VITAL SIGNS: Reviewed. GENERAL: Well-developed in no acute distress. HEENT: Head is normocephalic. Pupils are equal, round. Sclerae anicteric. Mucous membranes of the mouth are moist. Neck supple. No JVD or thyromegaly LUNGS: Respirations even and unlabored. Lungs essentially clear to auscultation bilaterally. HEART: Regular rate and rhythm. S1 and S2 heard. ABDOMEN: Soft. Nondistended. Nontender. EXTREMITIES: Normal range of motion. No clubbing or cyanosis. Peripheral pulses intact. No lower extremity edema NEUROLOGIC: Awake and alert. Oriented x 3. ASSESSMENT: Hypertensive urgency History of coronary artery disease Peripheral arterial disease with previous lower extremity invention Hyperlipidemia Chronic kidney disease History of AAA repair, 2023 Right renal artery stenosis PLAN: Continue current cardiac medications Patient to undergo renal artery angiogram today with Dr. Bueno Patient may be discharged home this afternoon from a cardiac standpoint Nurse practitioner note has been reviewed by physician. Signing provider agrees with the documented findings, assessment, and plan of care documented by PLATER SUPERVISOR as a scribe. Objective - Vital Signs Vital signs: Vital Signs Temp 97.9 F 12/06/24 08:00 Pulse 56 L 12/06/24 08:00 Resp 16 12/06/24 08:00 BP 125/55 12/06/24 08:00 Pulse Ox 93 L 12/06/24 08:00 FiO2 Intake & Output 12/05/24 12/06/24 12/06/24 18:59 06:59 18:59 Intake Total 1320 Balance 1320 Weight 48.6 kg Intake: Intake, IV Titration 600 Amount Sodium Chloride 0.9% 1, 600 000 ml @ 75 mls/hr IV . [id number] [facility] Rx#:[id number] Oral 720 Other: Voiding Method Toilet Toilet # Voids 1 - Labs CBC & Chem 7: 12/06/24 06:47 12/06/24 06:47 Labs: Abnormal Lab Results - Last 24 Hours (Table) 12/06/24 12/06/24 Range/Units 06:47 06:47 RBC 3.14 L (4.10-5.20) 10*6/uL Hgb 9.5 L (12.0-15.0) g/dL Hct 28.3 L (37.2-46.3) % MPV 9.1 L (9.5-12.2) fL Eosinophils # 0.49 H (0.04-0.35) 10*3/uL Sodium 134 L (137-145) mmol/L Chloride 108 H (98-107) mmol/L Carbon Dioxide 18 L (22-30) mmol/L BUN 29 H (7-17) mg/dL Creatinine 1.42 H (0.52-1.04) mg/dL Total Protein 5.5 L (6.3-8.2) g/dL Albumin 3.3 L (3.5-5.0) g/dL
[2024-12-06] MEDS: IV FLUID CONTINUATION 1,000 ML IV ONE (16:40)
[2024-12-06] MEDS: MIDAZOLAM 2 MG/2 ML VIAL IVP ONE (17:06)
[2024-12-06] MEDS: LIDOCAINE 1% INJ 10MG/ML (20 ML MDV) SQ ONE (17:07)
[2024-12-06] MEDS: IOPAMIDOL-370 100ML BTL INJ ONE (17:16)
--- NOTE | 2024-12-06 20:58 | P.PCN ---
Date of Procedure: 12/06/24 Operative Findings: An abdominal aortic angiogram and nonselective renal angiogram Performing physician Danie Bueno MD Procedure performed 1. An abdominal aortogram 2. Nonselective renal angiogram 3. Ultrasound-guided access of the right common femoral artery Indication Refractory hypertension associated with renal failure in this 74-year-old female patient. Approach The right common femoral artery Complication None Level of sedation Moderate with sedation length of 18 minutes Procedure description After obtaining informed consent the patient was brought to the cardiac State Comptroller. The right common femoral artery was cannulated using micropuncture technique under ultrasound guidance the micropuncture wire passed easily then I placed a 5 Ug[place] 11 cm sheath at the right common femoral artery. After that under fluoroscopy guidance an 035 wire was advanced to the abdominal aorta and subsequently a pigtail catheter was advanced over the wire. We did an abdominal aortic angiogram using a digital subtraction with a power injection. That was performed on 2 views. It was performed on AP view and AP cranial view. The procedure was completed with no complication Selective peripheral angiogram The aorta and bilateral iliacs appear to have aortic stent graft. The ostial of the right renal artery appeared to have intermediate to severe disease appears to be in the range of 60 to 70%. The left renal artery does not seems to have high-grade stenosis Conclusion Intermediate to severe disease involving the ostial of the right renal artery Postprocedure management 1. Consider medical treatment at this point 2. Consider physiologic assessment including using the Dobler wire if the patient's pressure remains elevated and or the kidney function deteriorate
--- NOTE | 2024-12-06 21:12 | P.PCN ---
Date of Procedure: 12/06/24 Operative Findings: CARDIAC CATHETERIZATION PERFORMING PHYSICIAN: Danie Bueno MD, RPVI PROCEDURE PERFORMED: 1. Selective right and left coronary angiogram 2. Left heart catheterization 3. Ultrasound-guided access of the right radial artery INDICATION: Acute non-ST elevation myocardial infarction COMPLICATION: None APPROACH: Right radial artery LEVEL OF SEDATION: Moderate with a sedation length of 11 minutes PROCEDURE DESCRIPTION: After obtaining an informed consent, the patient was brought to cardiac track laborer. Local anesthesia was performed using lidocaine subcutaneously. The right radial artery was cannulated using Seldinger technique, under ultrasound guidance, the guidewire passed easily, following that we advanced a 5-Welsh sheath dilator assembly, the wire and dilator were removed and sheath was flushed. Following that, 2 mg of verapamil along with 5000 unit heparin were given. Selective right and left coronary angiogram using a 5-Welsh JR4 and JL 3.5 catheters. Following that we did left heart catheterization using 5-Welsh pigtail catheter. The procedure was completed there was no complication. SELECTIVE CORONARY ANGIOGRAM: The right coronary artery: Large caliber vessel a dominant vessel with no evidence of high-grade stenosis Left main: Is angiographically normal The left circumflex: Large caliber vessel and codominant vessel with no evidence of high-grade stenosis The left anterior descending artery: Large caliber vessel appears to be angiographically normal as we HEMODYNAMICS: The LVEDP was 12 mmHg with no significant gradient across aortic valve CONCLUSION: 1. Normal coronary angiogram 2. Normal left-sided filling pressure POSTPROCEDURE MANAGEMENT: Medical treatment
[2024-12-06] MEDS: HYDROmorphone 0.5 MG/0.5 ML SYRINGE IVP PRN (23:06)
--- NOTE | 2024-12-07 07:46 | P.PN ---
Subjective Progress Note Date: 12/07/24 The patient was seen and evaluated this morning which is asymptomatic. The pressure remains elevated in spite of being on maximized medical treatment of multiple blood pressure medications which she underwent yesterday and angiogram which showed intermediate to severe disease involving the right renal artery. I am going to start the patient on minoxidil. The right groin appears to be soft and nontender with no bruises. The physical examination overall is unremarkable besides soft systolic murmur at the right and left upper sternal border with clear breathing sounds bilaterally and no edema was noted in the lower extremities Assessment Hypertension urgency Resistant hypertension History of CAD History of AAA repair Renal artery stenosis Plan Continue the current medical regimen Add minoxidil to the current medical regimen Consider angioplasty and stenting of the right renal artery if the pressure remains elevated down the line and as an outpatient Follow-up with the patient Objective - Vital Signs Vital signs: Vital Signs Temp 97.8 F 12/07/24 07:37 Pulse 56 L 12/07/24 07:37 Resp 14 12/07/24 07:37 BP 204/84 12/07/24 07:37 Pulse Ox 95 12/07/24 07:37 FiO2 Intake & Output 12/06/24 12/07/24 12/07/24 18:59 06:59 18:59 Intake Total 50 222 Balance 50 222 Intake: IV 50 Oral 222 Other: Voiding Method Toilet Toilet # Voids 2 - Labs CBC & Chem 7: 12/06/24 06:47 12/06/24 06:47
[2024-12-07 08:46] LABS: Basophils # (A) 0.03 10*3/uL (0.00-0.10); Basophils % (A) 0.5 %; Eosinophils # (A) 0.63 10*3/uL (0.04-0.35); Eosinophils % (A) 10.8 %; HCT 31.7 % (37.2-46.3); HGB 10.1 g/dL (12.0-15.0); Lymphocytes # (A) 1.91 10*3/uL (0.90-5.00); Lymphocytes % (A) 32.6 %; MCH 30.2 pg (27.0-32.0); MCHC 31.9 g/dL (32.0-37.0); MCV 94.9 fL (80.0-97.0); Mean Platelet Volume 10.1 fL (9.5-12.2); Monocytes # (A) 0.53 10*3/uL (0.20-1.00); Monocytes % (A) 9.1 %; Neutrophils # (A) 2.73 10*3/uL (1.80-7.70); Neutrophils % (A) 46.7 %; Platelet Count 255 10*3/uL (140-440); RBC 3.34 10*6/uL (4.10-5.20); RDW 14.7 % (11.5-14.5); WBC 5.85 10*3/uL (4.50-10.00)
[2024-12-07 08:53] LABS: ALT 19 U/L (4-34); AST 23 U/L (14-36); African American GFR (CKD) 37 (>60 ml/min/1.73 sqM); Albumin 3.4 g/dL (3.5-5.0); Alkaline Phosphatase 64 U/L (38-126); Anion Gap 12 mmol/L; Blood Urea Nitrogen 37 mg/dL (7-17); Calcium 9.3 mg/dL (8.4-10.2); Carbon Dioxide 12 mmol/L (22-30); Chloride 110 mmol/L (98-107); Glucose 96 mg/dL (74-99); Non-African American GFR(CKD) 32 (>60 ml/min/1.73 sqM); Potassium 5.2 mmol/L (3.5-5.1); Sodium 134 mmol/L (137-145); Total Bilirubin 0.5 mg/dL (0.2-1.3); Total Protein 5.8 g/dL (6.3-8.2)
[2024-12-07] MEDS ORDERED: minoxidiL 2.5 MG TAB PO SCH (09:00)
[2024-12-07] MEDS: minoxidiL 2.5 MG TAB PO SCH (09:27)
[2024-12-07 11:05] LABS: Spherocytes Present
--- NOTE | 2024-12-07 11:41 | P.PN ---
Subjective Progress Note Date: 12/07/24 Henny Camargo, is a 74-year-old female who presented to [facility] emergency room with a chief complaint of severely elevated blood pressure She was evaluated in the emergency room vital examination on presentation revealed a temperature of 97.9 pulse 89 respiration 18 blood pressure 244/108 pulse ox 97% on room air Laboratory data reveals a white blood count of 7.46 hemoglobin 9.9 platelet count 311 sodium 131 potassium 5.2 BUN 31 creatinine 1.59 Testing in the emergency room revealed chest x-ray done in the emergency room revealed mild cardiomegaly without suspicious acute pulmonary process, EKG revealed sinus rhythm with normal EKG Patient was admitted to medical floor for further evaluation and treatment Past medical history is significant for history of hypertension, history of hyperlipidemia, history of chest pain, history of osteoarthritis, history of aortic aneurysm, history of peripheral vascular disease with left leg stent placement, patient is a former smoker On review of systems patient is alert and oriented x 3 in no apparent distress there is no fever or chills no headache or dizziness no chest pain no shortness of breath no cough no nausea or vomiting no abdominal pain no diarrhea no blood in the stools no burning with urination no frequency or urgency no hematuria On 12/05/2024 patient is alert and oriented x 3. Patient still having elevated blood pressure. Vascular surgery has been consulted to rule out renal artery stenosis. Current vital signs temp 98.1, heart rate 64, respiratory rate 18, blood pressure 180/76 with pulse ox of 96 on room air. Cardiology services are following. Patient denies chest pain or shortness of breath. Patient denies nausea vomiting or diarrhea. Patient denies any urinary burning or frequency On 12/06/2024 patient is alert and oriented x 3. Blood pressure has improved current temp 97.9, heart 56, respiratory rate 16, blood pressure 125/55 with pulse ox of 93% on room air lands today for angiogram and stenting with Dr. Graves. Patient denies chest pain or shortness of breath. Patient denies nausea vomiting or diarrhea. Patient denies any urinary burning or frequency On 12/07/2024 patient was seen and examined on the medical floor she is alert and oriented x 3 in no apparent distress, she underwent renal artery angiogram with Dr. Graves yesterday, no angioplasty or stent placement was attempted, blood pressure remains elevated today at 204/84, BUN and creatinine are slightly elevated, otherwise she denies any complaints, there is no fever or chills no headache or dizziness no chest pain no shortness of breath no cough no nausea or vomiting no abdominal pain no diarrhea and no urinary symptoms. At this time minoxidil was added to her medication regimen, will continue to follow closely. Objective - Vital Signs Vital signs: Vital Signs Temp 97.8 F 12/07/24 07:37 Pulse 56 L 12/07/24 07:37 Resp 14 12/07/24 07:37 BP 204/84 12/07/24 07:37 Pulse Ox 95 12/07/24 07:37 FiO2 Intake & Output 12/06/24 12/07/24 12/07/24 18:59 06:59 18:59 Intake Total 50 222 118 Balance 50 222 118 Intake: IV 50 Oral 222 118 Other: Voiding Method Toilet Toilet # Voids 2 1 - Exam Head normocephalic Neck supple Lungs clear to auscultation bilaterally no wheezing or crackles Heart regular rate and rhythm S1-S2, no rub or gallop Abdomen is soft nontender nondistended positive bowel sounds no hepatosplenomegaly Extremities no edema Neuro alert and orientated to 3 - Labs CBC & Chem 7: 12/07/24 07:47 12/07/24 07:47 Labs: Abnormal Lab Results - Last 24 Hours (Table) 12/07/24 12/07/24 Range/Units 07:47 07:47 RBC 3.34 L (4.10-5.20) 10*6/uL Hgb 10.1 L (12.0-15.0) g/dL Hct 31.7 L (37.2-46.3) % MCHC 31.9 L (32.0-37.0) g/dL Eosinophils # 0.63 H (0.04-0.35) 10*3/uL Sodium 134 L (137-145) mmol/L Potassium 5.2 H (3.5-5.1) mmol/L Chloride 110 H (98-107) mmol/L Carbon Dioxide 12 L (22-30) mmol/L BUN 37 H (7-17) mg/dL Creatinine 1.57 H (0.52-1.04) mg/dL Total Protein 5.8 L (6.3-8.2) g/dL Albumin 3.4 L (3.5-5.0) g/dL Assessment and Plan Plan: Hypertensive emergency Underlying history of hypertension Underlying history of hyperlipidemia Underlying history of peripheral vascular disease Underlying history of aortic aneurysm Underlying history of osteoarthritis At this time patient was seen and examined Home medications reviewed and reordered Patient was given IV hydralazine in the emergency room Blood pressure medications are being adjusted Echocardiogram and renal artery ultrasound were ordered Renal arterial ureter angiogram with possible stenting on 12/06/2024 Cardiology consultation was requested Will follow closely
--- NOTE | 2024-12-08 08:35 | P.PN ---
Subjective Progress Note Date: 12/08/24 The patient was seen and evaluated this morning which is asymptomatic. The pressure remains elevated in spite of being on maximized medical treatment of multiple blood pressure medications which she underwent yesterday and angiogram which showed intermediate to severe disease involving the right renal artery. I am going to start the patient on minoxidil. The right groin appears to be soft and nontender with no bruises. The physical examination overall is unremarkable besides soft systolic murmur at the right and left upper sternal border with clear breathing sounds bilaterally and no edema was noted in the lower extremities December 08, 2024 The patient was seen and evaluated this morning which she is asymptomatic and finally the pressure has came down after she was started on minoxidil but seems to be consistent with stage II hypertension. She is not in hypertension crisis anymore. The physical examination is remarkable for regular rhythm with a soft systolic murmur and clear breathing sounds bilaterally no edema was noted in the lower extremities Assessment Hypertension urgency Resistant hypertension History of CAD History of AAA repair Renal artery stenosis Plan Continue the current medical regimen Consider angioplasty and stenting of the right renal artery if the pressure natanael ins elevated down the line and as an outpatient Objective - Vital Signs Vital signs: Vital Signs Temp 98 F 12/08/24 08:00 Pulse 59 L 12/08/24 08:00 Resp 14 12/08/24 08:00 BP 160/55 12/08/24 08:00 Pulse Ox 93 L 12/08/24 08:00 FiO2 Intake & Output 12/07/24 12/08/24 12/08/24 18:59 06:59 18:59 Intake Total 354 240 Balance 354 240 Weight 48.4 kg Intake: Oral 354 240 Other: Voiding Method Toilet Toilet # Voids 2 1 - Labs CBC & Chem 7: 12/07/24 07:47 12/07/24 07:47 Labs: Abnormal Lab Results - Last 24 Hours (Table) 12/07/24 12/07/24 Range/Units 07:47 07:47 RBC 3.34 L (4.10-5.20) 10*6/uL Hgb 10.1 L (12.0-15.0) g/dL Hct 31.7 L (37.2-46.3) % MCHC 31.9 L (32.0-37.0) g/dL Eosinophils # 0.63 H (0.04-0.35) 10*3/uL Sodium 134 L (137-145) mmol/L Potassium 5.2 H (3.5-5.1) mmol/L Chloride 110 H (98-107) mmol/L Carbon Dioxide 12 L (22-30) mmol/L BUN 37 H (7-17) mg/dL Creatinine 1.57 H (0.52-1.04) mg/dL Total Protein 5.8 L (6.3-8.2) g/dL Albumin 3.4 L (3.5-5.0) g/dL
--- NOTE | 2024-12-08 09:06 | IR ---
EXAMINATION TYPE: IR angio renal BILAT DATE OF EXAM: 12/06/2024 5:30 PM COMPARISON: Pre Operative Images if available both CT/MRI or plain film CLINICAL INDICATION: Female, 74 years old with history of right renal stenosis, 1.8min fluoro, 5.39Gy cm2; TECHNIQUE: IR angio renal BILAT, multiple fluoroscopic images provided for procedure. DAP: 5.39 mGym2 Gycm2 uGym2 cGycm2 or equivalent. FINDINGS: IMPRESSION: 1. Report was generated for administrative purposes only. 2. Please see the operative/procedural note for further details. [facility], , 12/08/2024 9:04 AM
--- NOTE | 2024-12-08 09:30 | P.PN ---
Subjective Progress Note Date: 12/08/24 Henny Camargo, is a 74-year-old female who presented to [facility] emergency room with a chief complaint of severely elevated blood pressure She was evaluated in the emergency room vital examination on presentation revealed a temperature of 97.9 pulse 89 respiration 18 blood pressure 244/108 pulse ox 97% on room air Laboratory data reveals a white blood count of 7.46 hemoglobin 9.9 platelet count 311 sodium 131 potassium 5.2 BUN 31 creatinine 1.59 Testing in the emergency room revealed chest x-ray done in the emergency room revealed mild cardiomegaly without suspicious acute pulmonary process, EKG revealed sinus rhythm with normal EKG Patient was admitted to medical floor for further evaluation and treatment Past medical history is significant for history of hypertension, history of hyperlipidemia, history of chest pain, history of osteoarthritis, history of aortic aneurysm, history of peripheral vascular disease with left leg stent placement, patient is a former smoker On review of systems patient is alert and oriented x 3 in no apparent distress there is no fever or chills no headache or dizziness no chest pain no shortness of breath no cough no nausea or vomiting no abdominal pain no diarrhea no blood in the stools no burning with urination no frequency or urgency no hematuria On 12/05/2024 patient is alert and oriented x 3. Patient still having elevated blood pressure. Vascular surgery has been consulted to rule out renal artery stenosis. Current vital signs temp 98.1, heart rate 64, respiratory rate 18, blood pressure 180/76 with pulse ox of 96 on room air. Cardiology services are following. Patient denies chest pain or shortness of breath. Patient denies nausea vomiting or diarrhea. Patient denies any urinary burning or frequency On 12/06/2024 patient is alert and oriented x 3. Blood pressure has improved current temp 97.9, heart 56, respiratory rate 16, blood pressure 125/55 with pulse ox of 93% on room air lands today for angiogram and stenting with Dr. Graves. Patient denies chest pain or shortness of breath. Patient denies nausea vomiting or diarrhea. Patient denies any urinary burning or frequency On 12/07/2024 patient was seen and examined on the medical floor she is alert and oriented x 3 in no apparent distress, she underwent renal artery angiogram with Dr. Graves yesterday, no angioplasty or stent placement was attempted, blood pressure remains elevated today at 204/84, BUN and creatinine are slightly elevated, otherwise she denies any complaints, there is no fever or chills no headache or dizziness no chest pain no shortness of breath no cough no nausea or vomiting no abdominal pain no diarrhea and no urinary symptoms. At this time minoxidil was added to her medication regimen, will continue to follow closely. On 12/08/2024 patient is alert and oriented x 3. Blood pressure does seem improved. Patient complaining about weakness. Consult PT OT services. Current vital signs temp 97.7, heart rate 60, respiratory rate 16, blood pressure 153/68 with pulse ox 94% on 4 L Objective - Vital Signs Vital signs: Vital Signs Temp 98 F 12/08/24 08:00 Pulse 59 L 12/08/24 08:00 Resp 14 12/08/24 08:00 BP 160/55 12/08/24 08:00 Pulse Ox 93 L 12/08/24 08:00 FiO2 Intake & Output 12/07/24 12/08/24 12/08/24 18:59 06:59 18:59 Intake Total 354 240 Balance 354 240 Weight 48.4 kg Intake: Oral 354 240 Other: Voiding Method Toilet Toilet # Voids 2 1 - Exam Head normocephalic Neck supple Lungs clear to auscultation bilaterally no wheezing or crackles Heart regular rate and rhythm S1-S2, no rub or gallop Abdomen is soft nontender nondistended positive bowel sounds no hepatosplenomegaly Extremities no edema Neuro alert and orientated to 3 - Labs CBC & Chem 7: 12/07/24 07:47 12/07/24 07:47 Labs: Abnormal Lab Results - Last 24 Hours (Table) 12/07/24 Range/Units 07:47 Eosinophils # 0.63 H (0.04-0.35) 10*3/uL Assessment and Plan Plan: Hypertensive emergency Underlying history of hypertension Underlying history of hyperlipidemia Underlying history of peripheral vascular disease Underlying history of aortic aneurysm Underlying history of osteoarthritis At this time patient was seen and examined Home medications reviewed and reordered Patient was given IV hydralazine in the emergency room Blood pressure medications are being adjusted Echocardiogram and renal artery ultrasound were ordered Post renal angiogram Cardiology consultation was requested Will follow closely
[2024-12-09 08:13] LABS: ALT 23 U/L (4-34); AST 23 U/L (14-36); African American GFR (CKD) 23 (>60 ml/min/1.73 sqM); Alkaline Phosphatase 73 U/L (38-126); Anion Gap 7 mmol/L; Blood Urea Nitrogen 45 mg/dL (7-17); Carbon Dioxide 17 mmol/L (22-30); Chloride 108 mmol/L (98-107); Glucose 83 mg/dL (74-99); Non-African American GFR(CKD) 20 (>60 ml/min/1.73 sqM); Potassium 5.1 mmol/L (3.5-5.1); Sodium 132 mmol/L (137-145); Total Bilirubin 0.4 mg/dL (0.2-1.3); Total Protein 5.1 g/dL (6.3-8.2)
[2024-12-09 08:33] LABS: Basophils # (A) 0.02 10*3/uL (0.00-0.10); Basophils % (A) 0.4 %; Eosinophils # (A) 0.55 10*3/uL (0.04-0.35); Eosinophils % (A) 11.6 %; HCT 25.6 % (37.2-46.3); HGB 8.7 g/dL (12.0-15.0); Lymphocytes # (A) 1.18 10*3/uL (0.90-5.00); Lymphocytes % (A) 24.9 %; MCH 30.2 pg (27.0-32.0); MCV 88.9 fL (80.0-97.0); Mean Platelet Volume 9.9 fL (9.5-12.2); Monocytes # (A) 0.55 10*3/uL (0.20-1.00); Monocytes % (A) 11.6 %; Neutrophils # (A) 2.41 10*3/uL (1.80-7.70); Neutrophils % (A) 50.9 %; Platelet Count 265 10*3/uL (140-440); RBC 2.88 10*6/uL (4.10-5.20); RDW 13.8 % (11.5-14.5); WBC 4.74 10*3/uL (4.50-10.00)
--- NOTE | 2024-12-09 17:23 | P.PN ---
Subjective Progress Note Date: 12/09/24 Henny Camargo, is a 74-year-old female who presented to [facility] emergency room with a chief complaint of severely elevated blood pressure She was evaluated in the emergency room vital examination on presentation revealed a temperature of 97.9 pulse 89 respiration 18 blood pressure 244/108 pulse ox 97% on room air Laboratory data reveals a white blood count of 7.46 hemoglobin 9.9 platelet count 311 sodium 131 potassium 5.2 BUN 31 creatinine 1.59 Testing in the emergency room revealed chest x-ray done in the emergency room revealed mild cardiomegaly without suspicious acute pulmonary process, EKG revealed sinus rhythm with normal EKG Patient was admitted to medical floor for further evaluation and treatment Past medical history is significant for history of hypertension, history of hyperlipidemia, history of chest pain, history of osteoarthritis, history of aortic aneurysm, history of peripheral vascular disease with left leg stent placement, patient is a former smoker On review of systems patient is alert and oriented x 3 in no apparent distress there is no fever or chills no headache or dizziness no chest pain no shortness of breath no cough no nausea or vomiting no abdominal pain no diarrhea no blood in the stools no burning with urination no frequency or urgency no hematuria On 12/05/2024 patient is alert and oriented x 3. Patient still having elevated blood pressure. Vascular surgery has been consulted to rule out renal artery stenosis. Current vital signs temp 98.1, heart rate 64, respiratory rate 18, blood pressure 180/76 with pulse ox of 96 on room air. Cardiology services are following. Patient denies chest pain or shortness of breath. Patient denies nausea vomiting or diarrhea. Patient denies any urinary burning or frequency On 12/06/2024 patient is alert and oriented x 3. Blood pressure has improved current temp 97.9, heart 56, respiratory rate 16, blood pressure 125/55 with pulse ox of 93% on room air lands today for angiogram and stenting with Dr. Graves. Patient denies chest pain or shortness of breath. Patient denies nausea vomiting or diarrhea. Patient denies any urinary burning or frequency On 12/07/2024 patient was seen and examined on the medical floor she is alert and oriented x 3 in no apparent distress, she underwent renal artery angiogram with Dr. Graves yesterday, no angioplasty or stent placement was attempted, blood pressure remains elevated today at 204/84, BUN and creatinine are slightly elevated, otherwise she denies any complaints, there is no fever or chills no headache or dizziness no chest pain no shortness of breath no cough no nausea or vomiting no abdominal pain no diarrhea and no urinary symptoms. At this time minoxidil was added to her medication regimen, will continue to follow closely. On 12/08/2024 patient is alert and oriented x 3. Blood pressure does seem improved. Patient complaining about weakness. Consult PT OT services. Current vital signs temp 97.7, heart rate 60, respiratory rate 16, blood pressure 153/68 with pulse ox 94% on 4 L On 12/09/2024 patient was seen and examined on the medical floor, she is alert and oriented x 3 in no apparent distress, there is no fever or chills no headache or dizziness no chest pain no shortness of breath no cough no nausea or vomiting no abdominal pain no diarrhea and no urinary symptoms, blood pressure i mproved significantly and is now at 145/57, however kidney function has worsened with BUN at 45 and creatinine 2.34 at this time will add nephrology consult will continue to follow closely Objective - Vital Signs Vital signs: Vital Signs Temp 97.8 F 12/09/24 04:00 Pulse 53 L 12/09/24 12:32 Resp 17 12/09/24 12:32 BP 122/49 12/09/24 12:32 Pulse Ox 92 L 12/09/24 12:32 FiO2 Intake & Output 12/08/24 12/09/24 12/09/24 18:59 06:59 18:59 Intake Total 720 10 Output Total 1 Balance 720 -1 10 Weight 50.3 kg Intake: IV 10 Invasive Line 2 10 Oral 720 Output: Urine 1 Other: Voiding Method Toilet Toilet Toilet # Voids 1 1 - Exam Head normocephalic Neck supple Lungs clear to auscultation bilaterally no wheezing or crackles Heart regular rate and rhythm S1-S2, no rub or gallop Abdomen is soft nontender nondistended positive bowel sounds no hepatosplenomegaly Extremities no edema Neuro alert and orientated to 3 - Labs CBC & Chem 7: 12/09/24 06:29 12/09/24 06:29 Labs: Abnormal Lab Results - Last 24 Hours (Table) 12/09/24 12/09/24 Range/Units 06:29 06:29 RBC 2.88 L (4.10-5.20) 10*6/uL Hgb 8.7 L (12.0-15.0) g/dL Hct 25.6 L (37.2-46.3) % Eosinophils # 0.55 H (0.04-0.35) 10*3/uL Sodium 132 L (137-145) mmol/L Chloride 108 H (98-107) mmol/L Carbon Dioxide 17 L (22-30) mmol/L BUN 45 H (7-17) mg/dL Creatinine 2.34 H (0.52-1.04) mg/dL Total Protein 5.1 L (6.3-8.2) g/dL Albumin 3.0 L (3.5-5.0) g/dL Assessment and Plan Plan: Hypertensive emergency Underlying history of hypertension Underlying history of hyperlipidemia Underlying history of peripheral vascular disease Underlying history of aortic aneurysm Underlying history of osteoarthritis At this time patient was seen and examined Home medications reviewed and reordered Patient was given IV hydralazine in the emergency room Blood pressure medications are being adjusted Echocardiogram and renal artery ultrasound were ordered Post renal angiogram Cardiology consultation was requested Will follow closely
--- NOTE | 2024-12-09 21:31 | P.PN ---
Subjective Progress Note Date: 12/09/24 The patient was seen and evaluated this morning which is asymptomatic. The pressure remains elevated in spite of being on maximized medical treatment of multiple blood pressure medications which she underwent yesterday and angiogram which showed intermediate to severe disease involving the right renal artery. I am going to start the patient on minoxidil. The right groin appears to be soft and nontender with no bruises. The physical examination overall is unremarkable besides soft systolic murmur at the right and left upper sternal border with clear breathing sounds bilaterally and no edema was noted in the lower extremities December 08, 2024 The patient was seen and evaluated this morning which she is asymptomatic and finally the pressure has came down after she was started on minoxidil but seems to be consistent with stage II hypertension. She is not in hypertension crisis anymore. The physical examination is remarkable for regular rhythm with a soft systolic murmur and clear breathing sounds bilaterally no edema was noted in the lower extremities 12/09/2024 Patient's kidney function is declining but the blood pressure is better controlled Creatinine is 2.34 today yesterday it was 1.57. BUN is 45. Assessment Hypertension urgency Resistant hypertension History of CAD History of AAA repair Right renal artery stenosis, 50 to 60% Plan Continue the current medical regimen If patient's kidney function is worsened tomorrow, consider right renal artery angioplasty. Objective - Vital Signs Vital signs: Vital Signs Temp 98 F 12/09/24 20:00 Pulse 60 12/09/24 20:00 Resp 16 12/09/24 20:00 BP 129/50 12/09/24 20:00 Pulse Ox 93 L 12/09/24 20:00 FiO2 Intake & Output 12/09/24 12/09/24 12/10/24 06:59 18:59 06:59 Intake Total 260 10 Output Total 1 Balance -1 260 10 Weight 50.3 kg Intake: IV 20 10 Invasive Line 2 20 10 Oral 240 Output: Urine 1 Other: Voiding Method Toilet Toilet Toilet # Voids 1 1 - Labs CBC & Chem 7: 12/09/24 06:29 12/09/24 06:29 Labs: Abnormal Lab Results - Last 24 Hours (Table) 12/09/24 12/09/24 Range/Units 06:29 06:29 RBC 2.88 L (4.10-5.20) 10*6/uL Hgb 8.7 L (12.0-15.0) g/dL Hct 25.6 L (37.2-46.3) % Eosinophils # 0.55 H (0.04-0.35) 10*3/uL Sodium 132 L (137-145) mmol/L Chloride 108 H (98-107) mmol/L Carbon Dioxide 17 L (22-30) mmol/L BUN 45 H (7-17) mg/dL Creatinine 2.34 H (0.52-1.04) mg/dL Total Protein 5.1 L (6.3-8.2) g/dL Albumin 3.0 L (3.5-5.0) g/dL
[2024-12-10 07:39] LABS: Basophils # (A) 0.02 10*3/uL (0.00-0.10); Basophils % (A) 0.4 %; Eosinophils % (A) 9.6 %; HCT 25.7 % (37.2-46.3); HGB 8.3 g/dL (12.0-15.0); Lymphocytes # (A) 1.04 10*3/uL (0.90-5.00); Lymphocytes % (A) 19.9 %; MCH 29.5 pg (27.0-32.0); MCHC 32.3 g/dL (32.0-37.0); MCV 91.5 fL (80.0-97.0); Monocytes # (A) 0.51 10*3/uL (0.20-1.00); Monocytes % (A) 9.8 %; Neutrophils # (A) 3.14 10*3/uL (1.80-7.70); Neutrophils % (A) 60.1 %; Platelet Count 269 10*3/uL (140-440); RBC 2.81 10*6/uL (4.10-5.20); RDW 13.7 % (11.5-14.5); WBC 5.22 10*3/uL (4.50-10.00)
[2024-12-10 07:56] LABS: Chloride 108 mmol/L (98-107)
[2024-12-10 07:59] LABS: ALT 23 U/L (4-34); AST 19 U/L (14-36); African American GFR (CKD) 22 (>60 ml/min/1.73 sqM); Albumin 3.1 g/dL (3.5-5.0); Alkaline Phosphatase 70 U/L (38-126); Anion Gap 11 mmol/L; Blood Urea Nitrogen 53 mg/dL (7-17); Calcium 8.9 mg/dL (8.4-10.2); Carbon Dioxide 14 mmol/L (22-30); Glucose 92 mg/dL (74-99); Non-African American GFR(CKD) 19 (>60 ml/min/1.73 sqM); Potassium 4.7 mmol/L (3.5-5.1); Sodium 133 mmol/L (137-145); Total Bilirubin 0.3 mg/dL (0.2-1.3); Total Protein 5.2 g/dL (6.3-8.2)
--- NOTE | 2024-12-10 09:37 | P.PN ---
Subjective Progress Note Date: 12/10/24 Henny Camargo, is a 74-year-old female who presented to [facility] emergency room with a chief complaint of severely elevated blood pressure She was evaluated in the emergency room vital examination on presentation revealed a temperature of 97.9 pulse 89 respiration 18 blood pressure 244/108 pulse ox 97% on room air Laboratory data reveals a white blood count of 7.46 hemoglobin 9.9 platelet count 311 sodium 131 potassium 5.2 BUN 31 creatinine 1.59 Testing in the emergency room revealed chest x-ray done in the emergency room revealed mild cardiomegaly without suspicious acute pulmonary process, EKG revealed sinus rhythm with normal EKG Patient was admitted to medical floor for further evaluation and treatment Past medical history is significant for history of hypertension, history of hyperlipidemia, history of chest pain, history of osteoarthritis, history of aortic aneurysm, history of peripheral vascular disease with left leg stent placement, patient is a former smoker On review of systems patient is alert and oriented x 3 in no apparent distress there is no fever or chills no headache or dizziness no chest pain no shortness of breath no cough no nausea or vomiting no abdominal pain no diarrhea no blood in the stools no burning with urination no frequency or urgency no hematuria On 12/05/2024 patient is alert and oriented x 3. Patient still having elevated blood pressure. Vascular surgery has been consulted to rule out renal artery stenosis. Current vital signs temp 98.1, heart rate 64, respiratory rate 18, blood pressure 180/76 with pulse ox of 96 on room air. Cardiology services are following. Patient denies chest pain or shortness of breath. Patient denies nausea vomiting or diarrhea. Patient denies any urinary burning or frequency On 12/06/2024 patient is alert and oriented x 3. Blood pressure has improved current temp 97.9, heart 56, respiratory rate 16, blood pressure 125/55 with pulse ox of 93% on room air lands today for angiogram and stenting with Dr. Graves. Patient denies chest pain or shortness of breath. Patient denies nausea vomiting or diarrhea. Patient denies any urinary burning or frequency On 12/07/2024 patient was seen and examined on the medical floor she is alert and oriented x 3 in no apparent distress, she underwent renal artery angiogram with Dr. Graves yesterday, no angioplasty or stent placement was attempted, blood pressure remains elevated today at 204/84, BUN and creatinine are slightly elevated, otherwise she denies any complaints, there is no fever or chills no headache or dizziness no chest pain no shortness of breath no cough no nausea or vomiting no abdominal pain no diarrhea and no urinary symptoms. At this time minoxidil was added to her medication regimen, will continue to follow closely. On 12/08/2024 patient is alert and oriented x 3. Blood pressure does seem improved. Patient complaining about weakness. Consult PT OT services. Current vital signs temp 97.7, heart rate 60, respiratory rate 16, blood pressure 153/68 with pulse ox 94% on 4 L On 12/09/2024 patient was seen and examined on the medical floor, she is alert and oriented x 3 in no apparent distress, there is no fever or chills no headache or dizziness no chest pain no shortness of breath no cough no nausea or vomiting no abdominal pain no diarrhea and no urinary symptoms, blood pressure i mproved significantly and is now at 145/57, however kidney function has worsened with BUN at 45 and creatinine 2.34 at this time will add nephrology consult will continue to follow closely On 12/10/2024 patient is alert and oriented x 3. Blood pressure this morning 124/58 with pulse ox 93%. Kidney function continue to worsen this a.m. creatinine 2.43 bun 53 awaiting further recommendations from vascular and nephrology services. Patient denies chest pain denies nausea diarrhea. Patient denies any urinary burning or frequency Objective - Vital Signs Vital signs: Vital Signs Temp 98 F 12/09/24 20:00 Pulse 57 L 12/10/24 08:00 Resp 16 12/10/24 08:00 BP 124/58 12/10/24 08:00 Pulse Ox 93 L 12/10/24 08:00 FiO2 Intake & Output 12/09/24 12/10/24 12/10/24 18:59 06:59 18:59 Intake Total 260 20 Balance 260 20 Weight 50.2 kg Intake: IV 20 20 Invasive Line 2 20 20 Oral 240 Other: Voiding Method Toilet Toilet # Voids 1 1 - Exam Head normocephalic Neck supple Lungs clear to auscultation bilaterally no wheezing or crackles Heart regular rate and rhythm S1-S2, no rub or gallop Abdomen is soft nontender nondistended positive bowel sounds no hepatosplenomegaly Extremities no edema Neuro alert and orientated to 3 - Labs CBC & Chem 7: 12/10/24 07:03 12/10/24 07:03 Labs: Abnormal Lab Results - Last 24 Hours (Table) 12/10/24 12/10/24 Range/Units 07:03 07:03 RBC 2.81 L (4.10-5.20) 10*6/uL Hgb 8.3 L (12.0-15.0) g/dL Hct 25.7 L (37.2-46.3) % Eosinophils # 0.50 H (0.04-0.35) 10*3/uL Sodium 133 L (137-145) mmol/L Chloride 108 H (98-107) mmol/L Carbon Dioxide 14 L (22-30) mmol/L BUN 53 H (7-17) mg/dL Creatinine 2.43 H (0.52-1.04) mg/dL Total Protein 5.2 L (6.3-8.2) g/dL Albumin 3.1 L (3.5-5.0) g/dL Assessment and Plan Plan: Hypertensive emergency Acute on chronic kidney disease Underlying history of hypertension Underlying history of hyperlipidemia Underlying history of peripheral vascular disease Underlying history of aortic aneurysm Underlying history of osteoarthritis At this time patient was seen and examined Home medications reviewed and reordered Patient was given IV hydralazine in the emergency room Blood pressure medications are being adjusted Echocardiogram and renal artery ultrasound were ordered Post renal angiogram Cardiology consultation was requested Will follow closely
--- NOTE | 2024-12-10 09:58 | P.NPCON ---
History of Present Illness - Reason for Consult acute renal failure - History of Present Illness Reason for consultation: Acute kidney injury History of present illness: Patient is a 74-year-old female seen in renal consultation for acute kidney injury. Patient's creatinine in November 2023 was near 1 but since March 2024 has been elevated in the range of 1.5-2. Today is up to 2.43. Patient came to the hospital due to elevated blood pressure. Patient says she was taking lisinopril and hydralazine which was recently increased but her blood pressures was remaining significantly elevated. Blood pressure on admission was documented as 244/108. Subsequently medications were adjusted and now her blood pressure is better controlled. This morning it was 124/58. She denies chest pain or shortness of breath. No gross hematuria or dysuria. No vomiting or diarrhea. Oral intake is fair. Denies regular use of nonsteroidals. No fever or chills. Denies prior history of kidney disease. Vital signs are stable. General: No acute distress. HEENT: Head exam is unremarkable. LUNGS: No audible rhonchi or wheezes. HEART: Rate and Rhythm are regular. Abdomen: Nontender. EXTREMITITES: No edema. Past Medical History Past Medical History: Chest Pain / Angina, Hyperlipidemia, Hypertension, Osteoarthritis (OA), Vascular Disorder Additional Past Medical History / Comment(s): has difficulty walking,aortic aneurysm,SOB,yesika leg swelling from knee down,ruptured disk,hemorrhage rt eye after cataract surgery, left leg stenting, recent stress test, recent adm. to [facility] for anemia-had transfusion, restless leg syndrome History of Any Multi-Drug Resistant Organisms: None Reported Additional Past Surgical History / Comment(s): Aortogram,yesika cataracts,laser surgery rt eye hemorrhage post cataract surg. Past Anesthesia/Blood Transfusion Reactions: No Reported Reaction Past Psychological History: No Psychological Hx Reported Smoking Status: Former smoker Past Alcohol Use History: None Reported Past Drug Use History: None Reported - Past Family History Mother Family Medical History: No Reported History Father Family Medical History: Myocardial Infarction (NE) Medications and Allergies Home Medications Medication Instructions Recorded Confirmed Type Simvastatin 40 mg PO HS 01/30/20 12/04/24 History amLODIPine BESYLATE 10 mg PO DAILY 01/30/20 12/04/24 History Isosorbide Mononitrate ER [Imdur] 30 mg PO DAILY 03/14/22 12/04/24 History Aspirin 81 mg PO DAILY 90 Days #90 tab 03/20/22 12/04/24 Rx Pantoprazole Sodium [Protonix] 40 mg PO DAILY 30 Days #30 tab 03/20/22 12/04/24 Rx Fluticasone/Umeclidin/Vilanter 1 puff INHALATION RT-DAILY 12/04/24 12/04/24 History [Trelegy Ellipta 100-62.5-25] Furosemide [Lasix] 20 mg PO DAILY 12/04/24 12/04/24 History Metoprolol Succinate (ER) [Toprol 25 mg PO DAILY 12/04/24 12/04/24 History Xl] Multivit/Iron Sulf/Folic Acid 1 tab PO DAILY 12/04/24 12/04/24 History [Multivitamin with Iron] Vitamin B Complex 1 cap PO DAILY 12/04/24 12/04/24 History hydrALAZINE HCL [Apresoline] 50 mg PO BID-W/MEALS 12/04/24 12/04/24 History lisinopriL [Zestril] 20 mg PO BID 12/04/24 12/04/24 History rOPINIRole HCL [Requip] 0.25 - 0.5 mg PO HS 12/04/24 12/04/24 History Allergies Allergy/AdvReac Type Severity Reaction Status Date / Time clopidogrel [From Plavix] Allergy Swelling Verified 12/04/24 11:07 guaifenesin [From Mucinex] Allergy Swelling Verified 12/04/24 11:07 steroids Allergy Swelling Uncoded 12/04/24 11:07 Physical Exam Vitals: Vital Signs Temp Pulse Resp BP Pulse Ox 12/10/24 08:00 57 L 16 124/58 93 L 12/10/24 06:10 173/63 12/10/24 04:00 62 16 168/58 92 L 12/09/24 22:42 58 L 16 149/63 94 L 12/09/24 20:00 98 F 60 16 129/50 93 L 12/09/24 16:12 66 16 147/81 96 12/09/24 12:32 53 L 17 122/49 92 L Intake and Output 12/09/24 12/10/24 12/10/24 22:59 06:59 14:59 Intake Total 10 10 Balance 10 10 Intake: IV 10 10 Invasive Line 2 10 10 Other: Voiding Method Toilet Toilet # Voids 1 1 Weight 50.2 kg Results - Lab Results Most recent lab results Calcium 8.9 mg/dL (8.4-10.2) 12/10/24 07:03 Magnesium 2.0 mg/dL (1.6-2.3) 12/04/24 00:09 12/10/24 07:03 12/10/24 07:03 Assessment and Plan Plan: Assessment: 1. Acute kidney injury secondary to hemodynamic ATN. Creatinine 2.43 today. Creatinine near 1 in November 2023 but in the range of 1.5-2 send March 2024. Concerning for underlying chronic kidney disease 2. Renal artery stenosis and a solitary functioning right kidney. Left kidney noted to be atrophic. 3. Metabolic acidosis secondary to acute kidney injury and IV fluids. 4. Hypertensive urgency. Improved. Plan: Hep-Lock IV fluids. Encouraged oral intake. Add oral bicarb. Avoid nephrotoxins. Case discussed with cardiology at length. Plan for renal artery stenting in the near future as the patient has solitary functioning right kidney with stenosis and worsening renal function. Check UA. Thank you for the consultation. I will continue to follow the patient with you during her hospital stay.
--- NOTE | 2024-12-10 14:35 | P.PN ---
Subjective Progress Note Date: 12/10/24 The patient was seen and evaluated this morning which is asymptomatic. The pressure remains elevated in spite of being on maximized medical treatment of multiple blood pressure medications which she underwent yesterday and angiogram which showed intermediate to severe disease involving the right renal artery. I am going to start the patient on minoxidil. The right groin appears to be soft and nontender with no bruises. The physical examination overall is unremarkable besides soft systolic murmur at the right and left upper sternal border with clear breathing sounds bilaterally and no edema was noted in the lower extremities December 08, 2024 The patient was seen and evaluated this morning which she is asymptomatic and finally the pressure has came down after she was started on minoxidil but seems to be consistent with stage II hypertension. She is not in hypertension crisis anymore. The physical examination is remarkable for regular rhythm with a soft systolic murmur and clear breathing sounds bilaterally no edema was noted in the lower extremities 12/09/2024 Patient's kidney function is declining but the blood pressure is better controlled Creatinine is 2.34 today yesterday it was 1.57. BUN is 45. / Patient seen and examined. Blood pressure is improved at 124/58, heart rate is in the 50s and 60s, pulse ox 93% on room air. Patient is not worsening of her renal function with BUN 53 creatinine 2.43, hemoglobin is at 8.3. Discussed with Dr. Henry with recommendations to move forward with stent placement. The physical examination overall is unremarkable besides soft systolic murmur at the right and left upper sternal border with clear breathing sounds bilaterally and no edema was noted in the lower extremities Assessment Hypertension urgency Resistant hypertension History of CAD History of AAA repair Right renal artery stenosis, 50 to 60% Plan Continue the current medical regimen Schedule patient for right renal artery stenting tomorrow with Dr. Bueno 5 AM [facility] N.p.o. after midnight. Nurse practitioner note has been reviewed, I agree with documented findings and plan of care. Patient was seen and examined. Objective - Vital Signs Vital signs: Vital Signs Temp 98 F 12/09/24 20:00 Pulse 57 L 12/10/24 08:00 Resp 16 12/10/24 08:00 BP 124/58 12/10/24 08:00 Pulse Ox 93 L 12/10/24 08:00 FiO2 Intake & Output 0512/10/24 12/10/24 18:59 06:59 18:59 Intake Total 260 20 Balance 260 20 Weight 50.2 kg Intake: IV 20 20 Invasive Line 2 20 20 Oral 240 Other: Voiding Method Toilet Toilet # Voids 1 1 - Labs CBC & Chem 7: 12/10/24 07:03 12/10/24 07:03 Labs: Abnormal Lab Results - Last 24 Hours (Table) 12/10/24 12/10/24 Range/Units 07:03 07:03 RBC 2.81 L (4.10-5.20) 10*6/uL Hgb 8.3 L (12.0-15.0) g/dL Hct 25.7 L (37.2-46.3) % Eosinophils # 0.50 H (0.04-0.35) 10*3/uL Sodium 133 L (137-145) mmol/L Chloride 108 H (98-107) mmol/L Carbon Dioxide 14 L (22-30) mmol/L BUN 53 H (7-17) mg/dL Creatinine 2.43 H (0.52-1.04) mg/dL Total Protein 5.2 L (6.3-8.2) g/dL Albumin 3.1 L (3.5-5.0) g/dL
[2024-12-10] MEDS: SODIUM BICARBONATE TAB 650 MG TAB PO SCH (15:19)
[2024-12-10] MEDS: SODIUM BICARB 8.4% 50 ML SYR (1 MEQ/ML) IV STA (15:31)
[2024-12-10 18:32] LABS: Appearance,Urine Clear (Clear); Bilirubin,Urine Negative (Negative); Blood,Urine Negative (Negative); Color,Urine Yellow; Glucose,Urine (UA) Negative (Negative); Ketones,Urine Negative (Negative); Leukocyte Esterase,Urine Negative (Negative); Nitrite,Urine Negative (Negative); Protein,Urine Negative (Negative); Specific Gravity,Urine 1.014 (1.001-1.035); Urobilinogen,Urine <2.0 mg/dL (<2.0)
[2024-12-11] MEDS: ALPRAZolam 0.25 MG TAB PO PRN (05:44)
[2024-12-11 07:17] LABS: Basophils # (A) 0.03 10*3/uL (0.00-0.10); Basophils % (A) 0.6 %; Eosinophils # (A) 0.42 10*3/uL (0.04-0.35); Eosinophils % (A) 8.9 %; HCT 26.8 % (37.2-46.3); HGB 8.9 g/dL (12.0-15.0); Lymphocytes # (A) 1.13 10*3/uL (0.90-5.00); Lymphocytes % (A) 23.8 %; MCH 30.1 pg (27.0-32.0); MCHC 33.2 g/dL (32.0-37.0); MCV 90.5 fL (80.0-97.0); Mean Platelet Volume 10.2 fL (9.5-12.2); Monocytes % (A) 12.7 %; Neutrophils # (A) 2.56 10*3/uL (1.80-7.70); Platelet Count 283 10*3/uL (140-440); RBC 2.96 10*6/uL (4.10-5.20); RDW 13.9 % (11.5-14.5); WBC 4.74 10*3/uL (4.50-10.00)
[2024-12-11 07:42] LABS: ALT 23 U/L (4-34); AST 22 U/L (14-36); African American GFR (CKD) 20 (>60 ml/min/1.73 sqM); Albumin 3.2 g/dL (3.5-5.0); Alkaline Phosphatase 70 U/L (38-126); Anion Gap 8 mmol/L; Blood Urea Nitrogen 53 mg/dL (7-17); Calcium 9.4 mg/dL (8.4-10.2); Carbon Dioxide 17 mmol/L (22-30); Chloride 107 mmol/L (98-107); Glucose 87 mg/dL (74-99); Non-African American GFR(CKD) 17 (>60 ml/min/1.73 sqM); Potassium 5.3 mmol/L (3.5-5.1); Sodium 132 mmol/L (137-145); Total Bilirubin 0.4 mg/dL (0.2-1.3); Total Protein 5.4 g/dL (6.3-8.2)
[2024-12-11] MEDS: IV FLUID CONTINUATION 1,000 ML IV ONE (10:21)
[2024-12-11] MEDS: MIDAZOLAM 2 MG/2 ML VIAL IVP ONE ×2 (10:33→10:53)
[2024-12-11] MEDS: fentaNYL (PF) 50 MCG/1 ML VIAL IVP ONE ×2 (10:33→10:56)
[2024-12-11] MEDS: LIDOCAINE 2% (PF) 20 MG/ML 5 ML VIAL SQ ONE (10:51)
[2024-12-11] MEDS: HEPARIN SODIUM 1,000 UN/ML (10ML VL) IVP ONE ×2 (10:56→11:36)
--- NOTE | 2024-12-11 11:05 | P.PN ---
Subjective Patient is seen in follow-up for acute kidney injury on chronic kidney disease. Creatinine 2.63 today. Denies chest pain or shortness of breath. Has been voiding. Scheduled for renal artery stenosis intervention today. Vital signs are stable. General: No acute distress. HEENT: Head exam is unremarkable. LUNGS: No audible rhonchi or wheezes. HEART: Rate and Rhythm are regular. ABDOMEN: Nontender. EXTREMITITES: No edema. Objective - Vital Signs Vital signs: Vital Signs Temp 97.6 F 12/11/24 08:30 Pulse 59 L 12/11/24 08:30 Resp 17 12/11/24 08:30 BP 176/63 12/11/24 08:30 Pulse Ox 94 L 12/11/24 08:30 FiO2 Intake & Output 12/10/24 12/11/24 12/11/24 18:59 06:59 18:59 Intake Total 500 10 Output Total 0 Balance 500 10 0 Weight 50.7 kg Intake: IV 20 10 Invasive Line 2 20 10 Oral 480 Output: Gastric Drainage 0 Urine 0 Stool 0 Urine/Stool Mix 0 Emesis 0 Oral Regurgitation 0 Other 0 Other: Voiding Method Toilet Toilet Toilet # Voids 1 0 # Bowel Movements 1 0 - Labs CBC & Chem 7: 12/11/24 06:05 12/11/24 06:05 Labs: Abnormal Lab Results - Last 24 Hours (Table) 12/11/24 12/11/24 Range/Units 06:05 06:05 RBC 2.96 L (4.10-5.20) 10*6/uL Hgb 8.9 L (12.0-15.0) g/dL Hct 26.8 L (37.2-46.3) % Eosinophils # 0.42 H (0.04-0.35) 10*3/uL Sodium 132 L (137-145) mmol/L Potassium 5.3 H (3.5-5.1) mmol/L Carbon Dioxide 17 L (22-30) mmol/L BUN 53 H (7-17) mg/dL Creatinine 2.63 H (0.52-1.04) mg/dL Total Protein 5.4 L (6.3-8.2) g/dL Albumin 3.2 L (3.5-5.0) g/dL Assessment and Plan Plan: Assessment: 1. Acute kidney injury secondary to hemodynamic ATN. Creatinine 2.63 today. UA benign. Creatinine near 1 in November 2023 but in the range of 1.5-2 send S eptember 2023. Concerning for underlying chronic kidney disease 2. Renal artery stenosis and a solitary functioning right kidney. Left kidney noted to be atrophic. 3. Metabolic acidosis secondary to acute kidney injury and IV fluids. Better. On oral bicarb. 4. Hypertensive urgency. Improved. Plan: Encouraged oral intake. Avoid nephrotoxins. With worsening renal function and still uncontrolled hypertension despite multiple antihypertensives, plan is to undergo renal artery stenting today. Patient to receive IV hydration pre and post procedure to prevent contrast- induced CHRISTIAN.
[2024-12-11] MEDS: TICAGRELOR 90 MG TAB PO ONE (12:02)
[2024-12-11] MEDS: IOPAMIDOL-370 100ML BTL IVP ONE (12:07)
[2024-12-11] MEDS: HEPARIN SODIUM,PORCINE 10,000 UNIT in SODIUM CHLORIDE 0.9% 1,000 ML IRRIGATION ONE (12:13)
[2024-12-11] MEDS ORDERED: NALOXONE 0.4 MG/ML 1 ML VIAL IVP PRN (12:14)
[2024-12-11] MEDS: HEPARIN SODIUM,PORCINE (1 ML) 2,500 UNIT in SODIUM CHLORIDE 0.9% 250 ML IRRIGATION ONE (12:14)
--- NOTE | 2024-12-11 12:19 | P.PCN ---
Date of Procedure: 12/11/24 Operative Findings: Renal artery stenting Performing physician Danie Bueno MD Procedure performed 1. Successful stenting of the right renal artery using 6.0 x 16 mm renal stent with an excellent angiographic results and reduction of stenosis on 9 9% to 0% 2. Selective left renal artery angiogram 3. Ultrasound-guided access of the right common femoral artery and selective right common femoral artery angiogram Indication Refractory hypertension and renal failure in this 74-year-old female patient who was noted to have atrophic left kidney and critical disease involving the right renal artery Approach Right common femoral artery Complication None Level of sedation Moderate with sedation length of 62 minutes Procedure description After attending informed consent the patient was brought to the cardiac Life Trainer with right common femoral artery was cannulated using micropuncture technique under ultrasound guidance the micropuncture wire passed easily then I placed a 6 [place] 11 cm sheath at the right common femoral artery with anticoagulation was initiated using heparin with continuous ACT monitoring. Subsequently I did engage the right renal artery using renal double curve guide. Subsequently I wired using initially an 035 wire and subsequently an 014 wire. After that predilatation was performed using 3.5 mm balloon before I deployed a 6.0 x 16 mm renal stent postdilated using 6 mm NC balloon with final angiogram showing excellent angiographic results and the procedure was completed with no complications by the end I did selective right common femoral artery angiogram Postprocedure management Dual antiplatelet therapy using aspirin and Brilinta since the patient is allergic to Plavix Continue monitor the pressure and continue monitor the kidney function Follow-up with the patient
--- NOTE | 2024-12-11 12:38 | IR ---
EXAMINATION TYPE: IR stent intravas non coronary DATE OF EXAM: 12/11/2024 CLINICAL INDICATION: Female, 74 years old with history of Renal stenosis, 31.6m/22.4424DAP, rt gr she ath sutured in, TECHNIQUE: Fluoroscopy. COMPARISON: None. FINDINGS: Fluoroscopic guidance was provided during angiogram and stent insertion procedure performe d by Dr. Bueno. A total of 31.6 minutes of fluoroscopic time was utilized during the procedure and 92 6 spot images was acquired. TOTAL DAP = 2244.2 microGym2. IMPRESSION: As Above. [facility], , 12/11/2024 12:35 PM
[2024-12-11] MEDS: MORPHINE SULFATE 2 MG/ML SYRINGE IVP STA ×2 (14:05→14:51)
[2024-12-11] MEDS: MORPHINE SULFATE 4 MG/ML SYRINGE IVP STA (15:28)
[2024-12-11] MEDS ORDERED: MORPHINE SULFATE 2 MG/ML SYRINGE IVP PRN (16:04)
[2024-12-11] MEDS: SODIUM CHLORIDE 0.9% 500 ML 200 ML IV ONE (16:59)
--- NOTE | 2024-12-11 17:05 | P.PN ---
Subjective Progress Note Date: 12/11/24 Henny Camargo, is a 74-year-old female who presented to [facility] emergency room with a chief complaint of severely elevated blood pressure She was evaluated in the emergency room vital examination on presentation revealed a temperature of 97.9 pulse 89 respiration 18 blood pressure 244/108 pulse ox 97% on room air Laboratory data reveals a white blood count of 7.46 hemoglobin 9.9 platelet count 311 sodium 131 potassium 5.2 BUN 31 creatinine 1.59 Testing in the emergency room revealed chest x-ray done in the emergency room revealed mild cardiomegaly without suspicious acute pulmonary process, EKG revealed sinus rhythm with normal EKG Patient was admitted to medical floor for further evaluation and treatment Past medical history is significant for history of hypertension, history of hyperlipidemia, history of chest pain, history of osteoarthritis, history of aortic aneurysm, history of peripheral vascular disease with left leg stent placement, patient is a former smoker On review of systems patient is alert and oriented x 3 in no apparent distress there is no fever or chills no headache or dizziness no chest pain no shortness of breath no cough no nausea or vomiting no abdominal pain no diarrhea no blood in the stools no burning with urination no frequency or urgency no hematuria On 12/05/2024 patient is alert and oriented x 3. Patient still having elevated blood pressure. Vascular surgery has been consulted to rule out renal artery stenosis. Current vital signs temp 98.1, heart rate 64, respiratory rate 18, blood pressure 180/76 with pulse ox of 96 on room air. Cardiology services are following. Patient denies chest pain or shortness of breath. Patient denies nausea vomiting or diarrhea. Patient denies any urinary burning or frequency On 12/06/2024 patient is alert and oriented x 3. Blood pressure has improved current temp 97.9, heart 56, respiratory rate 16, blood pressure 125/55 with pulse ox of 93% on room air lands today for angiogram and stenting with Dr. Graves. Patient denies chest pain or shortness of breath. Patient denies nausea vomiting or diarrhea. Patient denies any urinary burning or frequency On 12/07/2024 patient was seen and examined on the medical floor she is alert and oriented x 3 in no apparent distress, she underwent renal artery angiogram with Dr. Graves yesterday, no angioplasty or stent placement was attempted, blood pressure remains elevated today at 204/84, BUN and creatinine are slightly elevated, otherwise she denies any complaints, there is no fever or chills no headache or dizziness no chest pain no shortness of breath no cough no nausea or vomiting no abdominal pain no diarrhea and no urinary symptoms. At this time minoxidil was added to her medication regimen, will continue to follow closely. On 12/08/2024 patient is alert and oriented x 3. Blood pressure does seem improved. Patient complaining about weakness. Consult PT OT services. Current vital signs temp 97.7, heart rate 60, respiratory rate 16, blood pressure 153/68 with pulse ox 94% on 4 L On 12/09/2024 patient was seen and examined on the medical floor, she is alert and oriented x 3 in no apparent distress, there is no fever or chills no headache or dizziness no chest pain no shortness of breath no cough no nausea or vomiting no abdominal pain no diarrhea and no urinary symptoms, blood pressure i mproved significantly and is now at 145/57, however kidney function has worsened with BUN at 45 and creatinine 2.34 at this time will add nephrology consult will continue to follow closely On 12/10/2024 patient is alert and oriented x 3. Blood pressure this morning 124/58 with pulse ox 93%. Kidney function continue to worsen this a.m. creatinine 2.43 bun 53 awaiting further recommendations from vascular and nephrology services. Patient denies chest pain denies nausea diarrhea. Patient denies any urinary burning or frequency On 12/11/2024 patient was seen and examined on the medical floor she is alert and oriented x 3 in no apparent distress, there is no fever or chills no headache or dizziness no chest pain no shortness of breath no cough no nausea or vomiting no abdominal pain no diarrhea no urinary symptoms, patient is scheduled for intervention with Dr. Graves today Objective - Vital Signs Vital signs: Vital Signs Temp 97.6 F 12/11/24 08:30 Pulse 51 L 12/11/24 12:50 Resp 16 12/11/24 12:50 BP 155/70 12/11/24 12:50 Pulse Ox 90 L 12/11/24 12:50 FiO2 Intake & Output 12/10/24 12/11/24 12/11/24 18:59 06:59 18:59 Intake Total 500 10 200 Output Total 250 Balance 500 10 -50 Weight 50.7 kg Intake: IV 20 10 200 Invasive Line 2 20 10 Oral 480 Output: Gastric Drainage 0 Urine 250 Stool 0 Urine/Stool Mix 0 Emesis 0 Oral Regurgitation 0 Other 0 Other: Voiding Method Toilet Toilet Toilet # Voids 1 0 # Bowel Movements 1 0 - Exam Head normocephalic Neck supple Lungs clear to auscultation bilaterally no wheezing or crackles Heart regular rate and rhythm S1-S2, no rub or gallop Abdomen is soft nontender nondistended positive bowel sounds no hepato splenomegaly Extremities no edema Neuro alert and orientated to 3 - Labs CBC & Chem 7: 12/11/24 06:05 12/11/24 06:05 Labs: Abnormal Lab Results - Last 24 Hours (Table) 12/11/24 12/11/24 Range/Units 06:05 06:05 RBC 2.96 L (4.10-5.20) 10*6/uL Hgb 8.9 L (12.0-15.0) g/dL Hct 26.8 L (37.2-46.3) % Eosinophils # 0.42 H (0.04-0.35) 10*3/uL Sodium 132 L (137-145) mmol/L Potassium 5.3 H (3.5-5.1) mmol/L Carbon Dioxide 17 L (22-30) mmol/L BUN 53 H (7-17) mg/dL Creatinine 2.63 H (0.52-1.04) mg/dL Total Protein 5.4 L (6.3-8.2) g/dL Albumin 3.2 L (3.5-5.0) g/dL Assessment and Plan Plan: Hypertensive emergency Acute on chronic kidney disease Underlying history of hypertension Underlying history of hyperlipidemia Underlying history of peripheral vascular disease Underlying history of aortic aneurysm Underlying history of osteoarthritis At this time patient was seen and examined Home medications reviewed and reordered Patient was given IV hydralazine in the emergency room Blood pressure medications are being adjusted Echocardiogram and renal artery ultrasound were ordered Post renal angiogram Cardiology consultation was requested Will follow closely
[2024-12-11] MEDS: SODIUM CHLORIDE 0.9% 1,000 ML IV SCH (17:09)
[2024-12-11] MEDS: SODIUM CHLORIDE 0.9% 1,000 ML in EMPTY BAG 1 BAG IV SCH (20:00)
[2024-12-11] MEDS: TICAGRELOR 90 MG TAB PO SCH (20:11)
--- NOTE | 2024-12-12 09:03 | P.PN ---
Subjective Progress Note Date: 12/12/24 Henny Camargo, is a 74-year-old female who presented to [facility] emergency room with a chief complaint of severely elevated blood pressure She was evaluated in the emergency room vital examination on presentation revealed a temperature of 97.9 pulse 89 respiration 18 blood pressure 244/108 pulse ox 97% on room air Laboratory data reveals a white blood count of 7.46 hemoglobin 9.9 platelet count 311 sodium 131 potassium 5.2 BUN 31 creatinine 1.59 Testing in the emergency room revealed chest x-ray done in the emergency room revealed mild cardiomegaly without suspicious acute pulmonary process, EKG revealed sinus rhythm with normal EKG Patient was admitted to medical floor for further evaluation and treatment Past medical history is significant for history of hypertension, history of hyperlipidemia, history of chest pain, history of osteoarthritis, history of aortic aneurysm, history of peripheral vascular disease with left leg stent placement, patient is a former smoker On review of systems patient is alert and oriented x 3 in no apparent distress there is no fever or chills no headache or dizziness no chest pain no shortness of breath no cough no nausea or vomiting no abdominal pain no diarrhea no blood in the stools no burning with urination no frequency or urgency no hematuria On 12/05/2024 patient is alert and oriented x 3. Patient still having elevated blood pressure. Vascular surgery has been consulted to rule out renal artery stenosis. Current vital signs temp 98.1, heart rate 64, respiratory rate 18, blood pressure 180/76 with pulse ox of 96 on room air. Cardiology services are following. Patient denies chest pain or shortness of breath. Patient denies nausea vomiting or diarrhea. Patient denies any urinary burning or frequency On 12/06/2024 patient is alert and oriented x 3. Blood pressure has improved current temp 97.9, heart 56, respiratory rate 16, blood pressure 125/55 with pulse ox of 93% on room air lands today for angiogram and stenting with Dr. Graves. Patient denies chest pain or shortness of breath. Patient denies nausea vomiting or diarrhea. Patient denies any urinary burning or frequency On 12/07/2024 patient was seen and examined on the medical floor she is alert and oriented x 3 in no apparent distress, she underwent renal artery angiogram with Dr. Graves yesterday, no angioplasty or stent placement was attempted, blood pressure remains elevated today at 204/84, BUN and creatinine are slightly elevated, otherwise she denies any complaints, there is no fever or chills no headache or dizziness no chest pain no shortness of breath no cough no nausea or vomiting no abdominal pain no diarrhea and no urinary symptoms. At this time minoxidil was added to her medication regimen, will continue to follow closely. On 12/08/2024 patient is alert and oriented x 3. Blood pressure does seem improved. Patient complaining about weakness. Consult PT OT services. Current vital signs temp 97.7, heart rate 60, respiratory rate 16, blood pressure 153/68 with pulse ox 94% on 4 L On 12/09/2024 patient was seen and examined on the medical floor, she is alert and oriented x 3 in no apparent distress, there is no fever or chills no headache or dizziness no chest pain no shortness of breath no cough no nausea or vomiting no abdominal pain no diarrhea and no urinary symptoms, blood pressure i mproved significantly and is now at 145/57, however kidney function has worsened with BUN at 45 and creatinine 2.34 at this time will add nephrology consult will continue to follow closely On 12/10/2024 patient is alert and oriented x 3. Blood pressure this morning 124/58 with pulse ox 93%. Kidney function continue to worsen this a.m. creatinine 2.43 bun 53 awaiting further recommendations from vascular and nephrology services. Patient denies chest pain denies nausea diarrhea. Patient denies any urinary burning or frequency On 12/11/2024 patient was seen and examined on the medical floor she is alert and oriented x 3 in no apparent distress, there is no fever or chills no headache or dizziness no chest pain no shortness of breath no cough no nausea or vomiting no abdominal pain no diarrhea no urinary symptoms, patient is scheduled for intervention with Dr. Graves today On 12/12/2024 patient is alert and oriented x 3. Patient underwent renal stent placement yesterday with Dr. Graves. Patient reports significant improvement of symptoms. Current vital signs temp 97.4, heart rate 65, respiratory rate 18, blood pressure 155/70 with a pulse ox of 94% on room air. Awaiting lab work. Objective - Vital Signs Vital signs: Vital Signs Temp 97.4 F L 12/12/24 04:36 Pulse 65 12/12/24 04:36 Resp 18 12/12/24 04:36 BP 155/70 12/12/24 04:36 Pulse Ox 94 L 12/12/24 04:36 FiO2 Intake & Output 12/11/24 12/12/24 12/12/24 18:59 06:59 18:59 Intake Total 200 Output Total 250 925 Balance -50 -925 Weight 52 kg Intake: IV 200 Oral 0 Output: Gastric Drainage 0 Urine 250 925 Stool 0 Urine/Stool Mix 0 Emesis 0 Oral Regurgitation 0 Other 0 Other: Voiding Method Toilet # Voids 0 1 # Bowel Movements 0 - Exam Head normocephalic Neck supple Lungs clear to auscultation bilaterally no wheezing or crackles Heart regular rate and rhythm S1-S2, no rub or gallop Abdomen is soft nontender nondistended positive bowel sounds no hepatosplenomegaly Extremities no edema Neuro alert and orientated to 3 - Labs CBC & Chem 7: 12/11/24 06:05 12/11/24 06:05 Assessment and Plan Plan: Hypertensive emergency Acute on chronic kidney disease Underlying history of hypertension Underlying history of hyperlipidemia Underlying history of peripheral vascular disease Underlying history of aortic aneurysm Underlying history of osteoarthritis At this time patient was seen and examined Home medications reviewed and reordered Status post renal stent on 12/11/2024 Cardiology consultation was requested Will follow closely
[2024-12-12 09:11] LABS: African American GFR (CKD) 32 (>60 ml/min/1.73 sqM); Anion Gap 11 mmol/L; Blood Urea Nitrogen 47 mg/dL (7-17); Carbon Dioxide 13 mmol/L (22-30); Chloride 107 mmol/L (98-107); Glucose 126 mg/dL (74-99); Magnesium 2.1 mg/dL (1.6-2.3); Non-African American GFR(CKD) 28 (>60 ml/min/1.73 sqM); Potassium 4.4 mmol/L (3.5-5.1); Sodium 131 mmol/L (137-145)
--- NOTE | 2024-12-12 10:30 | P.PN ---
Subjective Patient is seen in follow-up for acute kidney injury on chronic kidney disease. Renal function better. Denies chest pain or shortness of breath. Has been voiding. Underwent right renal artery stenting December 11, 2024. Vital signs are stable. General: No acute distress. HEENT: Head exam is unremarkable. LUNGS: No audible rhonchi or wheezes. HEART: Rate and Rhythm are regular. ABDOMEN: Nontender. EXTREMITITES: No edema. Objective - Vital Signs Vital signs: Vital Signs Temp 97.4 F L 12/12/24 04:36 Pulse 65 12/12/24 04:36 Resp 18 12/12/24 04:36 BP 155/70 12/12/24 04:36 Pulse Ox 94 L 12/12/24 04:36 FiO2 Intake & Output 12/11/24 12/12/24 12/12/24 18:59 06:59 18:59 Intake Total 200 180 Output Total 250 925 Balance -50 -925 180 Weight 52 kg Intake: IV 200 Oral 0 180 Output: Gastric Drainage 0 Urine 250 925 Stool 0 Urine/Stool Mix 0 Emesis 0 Oral Regurgitation 0 Other 0 Other: Voiding Method Toilet # Voids 0 1 # Bowel Movements 0 - Labs CBC & Chem 7: 12/11/24 06:05 12/12/24 08:30 Labs: Abnormal Lab Results - Last 24 Hours (Table) 12/12/24 Range/Units 08:30 Sodium 131 L (137-145) mmol/L Carbon Dioxide 13 L (22-30) mmol/L BUN 47 H (7-17) mg/dL Creatinine 1.78 H (0.52-1.04) mg/dL Glucose 126 H (74-99) mg/dL Assessment and Plan Plan: Assessment: 1. Acute kidney injury secondary to hemodynamic ATN. Renal function better. Creatinine 1.78 today. UA benign. Creatinine near 1 in November 2023 but in the range of 1.5-2 send March 2024. Concerning for underlying chronic kidney d isease 2. Renal artery stenosis and a solitary functioning right kidney. Left kidney noted to be atrophic. Status post right renal artery stenting December 11, 2024. 3. Metabolic acidosis secondary to acute kidney injury and IV fluids. 4. Hypertensive urgency. Improved. Plan: Encouraged oral intake. Avoid nephrotoxins. Maintain oral bicarb. Increase frequency to 3 times daily. Will also give sodium bicarb IV push. Hold minoxidil for systolic blood pressure less than 115.
[2024-12-12] MEDS: SODIUM BICARB 8.4% 50 ML SYR (1 MEQ/ML) IV STA (12:21)
--- NOTE | 2024-12-12 14:02 | P.PN ---
Subjective Progress Note Date: 12/12/24 The patient was seen and evaluated this morning which is asymptomatic. The pressure remains elevated in spite of being on maximized medical treatment of multiple blood pressure medications which she underwent yesterday and angiogram which showed intermediate to severe disease involving the right renal artery. I am going to start the patient on minoxidil. The right groin appears to be soft and nontender with no bruises. The physical examination overall is unremarkable besides soft systolic murmur at the right and left upper sternal border with clear breathing sounds bilaterally and no edema was noted in the lower extremities December 08, 2024 The patient was seen and evaluated this morning which she is asymptomatic and finally the pressure has came down after she was started on minoxidil but seems to be consistent with stage II hypertension. She is not in hypertension crisis anymore. The physical examination is remarkable for regular rhythm with a soft systolic murmur and clear breathing sounds bilaterally no edema was noted in the lower extremities 12/09/2024 Patient's kidney function is declining but the blood pressure is better controlled Creatinine is 2.34 today yesterday it was 1.57. BUN is 45. 12/10 Patient seen and examined. Blood pressure is improved at 124/58, heart rate is in the 50s and 60s, pulse ox 93% on room air. Patient is not worsening of her renal function with BUN 53 creatinine 2.43, hemoglobin is at 8.3. Discussed with Dr. Henry with recommendations to move forward with stent placement. The physical examination overall is unremarkable besides soft systolic murmur at the right and left upper sternal border with clear breathing sounds bilaterally and no edema was noted in the lower extremities 12/11 Patient seen and examined. Yesterday, patient underwent renal artery stenting on the right. Today her creatinine is much improved at 1.78. Patient did have hematoma to the right groin with spread to the right labia. Manual pressure was held as well as FemoStop was applied. This has resolved. Blood pressure running between 128/41-155/70. Heart rate is in the 50s and 60s, pulse ox 95% on room air. Assessment Hypertension urgency Resistant hypertension History of CAD History of AAA repair Right renal artery stenosis, 50 to 60% status post right renal stenting 12/11 Plan Continue the current medical regimen Continue to monitor blood pressure closely BMP in the morning Anticipate discharge home tomorrow Nurse practitioner note has been reviewed, I agree with documented findings and plan of care. Patient was seen and examined. Objective - Vital Signs Vital signs: Vital Signs Temp 97.4 F L 12/12/24 04:36 Pulse 65 12/12/24 04:36 Resp 18 12/12/24 04:36 BP 155/70 12/12/24 04:36 Pulse Ox 94 L 12/12/24 04:36 FiO2 Intake & Output 12/11/24 12/12/24 12/12/24 18:59 06:59 18:59 Intake Total 200 Output Total 250 925 Balance -50 -925 Weight 52 kg Intake: IV 200 Oral 0 Output: Gastric Drainage 0 Urine 250 925 Stool 0 Urine/Stool Mix 0 Emesis 0 Oral Regurgitation 0 Other 0 Other: Voiding Method Toilet # Voids 0 1 # Bowel Movements 0 - Labs CBC & Chem 7: 12/11/24 06:05 12/12/24 08:30
[2024-12-12] MEDS: SODIUM BICARBONATE TAB 650 MG TAB PO SCH (17:23)
[2024-12-13 04:11] VITALS: RESP 16
[2024-12-13 08:03] LABS: ALT 27 U/L (4-34); AST 35 U/L (14-36); African American GFR (CKD) 32 (>60 ml/min/1.73 sqM); Albumin 2.8 g/dL (3.5-5.0); Alkaline Phosphatase 61 U/L (38-126); Anion Gap 3 mmol/L; Blood Urea Nitrogen 38 mg/dL (7-17); Carbon Dioxide 24 mmol/L (22-30); Chloride 106 mmol/L (98-107); Glucose 84 mg/dL (74-99); Non-African American GFR(CKD) 28 (>60 ml/min/1.73 sqM); Potassium 4.7 mmol/L (3.5-5.1); Sodium 133 mmol/L (137-145); Total Bilirubin 0.3 mg/dL (0.2-1.3); Total Protein 4.8 g/dL (6.3-8.2)
[2024-12-13 08:30] LABS: Basophils # (A) 0.01 10*3/uL (0.00-0.10); Basophils % (A) 0.2 %; Eosinophils # (A) 0.41 10*3/uL (0.04-0.35); Eosinophils % (A) 7.5 %; HCT 25.1 % (37.2-46.3); HGB 8.4 g/dL (12.0-15.0); Lymphocytes # (A) 0.88 10*3/uL (0.90-5.00); Lymphocytes % (A) 16.1 %; MCH 29.9 pg (27.0-32.0); MCHC 33.5 g/dL (32.0-37.0); MCV 89.3 fL (80.0-97.0); Mean Platelet Volume 10.2 fL (9.5-12.2); Neutrophils # (A) 3.54 10*3/uL (1.80-7.70); Neutrophils % (A) 64.8 %; Platelet Count 206 10*3/uL (140-440); RBC 2.81 10*6/uL (4.10-5.20); RDW 13.8 % (11.5-14.5); WBC 5.46 10*3/uL (4.50-10.00)
[2024-12-13 09:33] VITALS: BP 160/54; PULSE 68; TEMP 97.9
--- NOTE | 2024-12-13 09:50 | P.DS ---
Providers Date of admission: 12/09/24 09:18 Expected date of discharge: 12/13/24 Attending physician: Anshu Padilla Consults: 12/04/24 01:54 Consult Physician Routine Consulting Provider: Jesse Espino Consult Reason/Comments: Hypertensive urgency Do you want consulting provider notified?: Yes 12/09/24 13:20 Consult Physician Routine Consulting Provider: Jaky Sweeney Consult Reason/Comments: Acute renal failure Do you want consulting provider notified?: Yes Primary care physician: Edita Dominguez [facility] Course: Discharge diagnosis Hypertensive emergency Acute on chronic kidney disease Renal artery stenosis status post renal stenting on 12/11/2024 Underlying history of hypertension Underlying history of hyperlipidemia Underlying history of peripheral vascular disease Underlying history of aortic aneurysm Underlying history of osteoarthritis Hospital Course Henny Camargo, is a 74-year-old female who presented to [facility] emergency room with a chief complaint of severely elevated blood pressure She was evaluated in the emergency room vital examination on presentation revealed a temperature of 97.9 pulse 89 respiration 18 blood pressure 244/108 pulse ox 97% on room air Laboratory data reveals a white blood count of 7.46 hemoglobin 9.9 platelet count 311 sodium 131 potassium 5.2 BUN 31 creatinine 1.59 Testing in the emergency room revealed chest x-ray done in the emergency room revealed mild cardiomegaly without suspicious acute pulmonary process, EKG revealed sinus rhythm with normal EKG Patient was admitted to medical floor for further evaluation and treatment Past medical history is significant for history of hypertension, history of hyperlipidemia, history of chest pain, history of osteoarthritis, history of aortic aneurysm, history of peripheral vascular disease with left leg stent placement, patient is a former smoker On review of systems patient is alert and oriented x 3 in no apparent distress there is no fever or chills no headache or dizziness no chest pain no shortness of breath no cough no nausea or vomiting no abdominal pain no diarrhea no blood in the stools no burning with urination no frequency or urgency no hematuria On 12/05/2024 patient is alert and oriented x 3. Patient still having elevated blood pressure. Vascular surgery has been consulted to rule out renal artery stenosis. Current vital signs temp 98.1, heart rate 64, respiratory rate 18, blood pressure 180/76 with pulse ox of 96 on room air. Cardiology services are following. Patient denies chest pain or shortness of breath. Patient denies nausea vomiting or diarrhea. Patient denies any urinary burning or frequency On 12/06/2024 patient is alert and oriented x 3. Blood pressure has improved current temp 97.9, heart 56, respiratory rate 16, blood pressure 125/55 with pulse ox of 93% on room air lands today for angiogram and stenting with Dr. Ximena groves Patient denies chest pain or shortness of breath. Patient denies nausea vomiting or diarrhea. Patient denies any urinary burning or frequency On 12/07/2024 patient was seen and examined on the medical floor she is alert and oriented x 3 in no apparent distress, she underwent renal artery angiogram with Dr. Graves yesterday, no angioplasty or stent placement was attempted, blood pressure remains elevated today at 204/84, BUN and creatinine are slightly elevated, otherwise she denies any complaints, there is no fever or chills no headache or dizziness no chest pain no shortness of breath no cough no nausea or vomiting no abdominal pain no diarrhea and no urinary symptoms. At this time minoxidil was added to her medication regimen, will continue to follow closely. On 12/08/2024 patient is alert and oriented x 3. Blood pressure does seem improved. Patient complaining about weakness. Consult PT OT services. Current vital signs temp 97.7, heart rate 60, respiratory rate 16, blood pressure 153/68 with pulse ox 94% on 4 L On 12/09/2024 patient was seen and examined on the medical floor, she is alert and oriented x 3 in no apparent distress, there is no fever or chills no headache or dizziness no chest pain no shortness of breath no cough no nausea or vomiting no abdominal pain no diarrhea and no urinary symptoms, blood pressure improved significantly and is now at 145/57, however kidney function has worsened with BUN at 45 and creatinine 2.34 at this time will add nephrology consult will continue to follow closely On 12/10/2024 patient is alert and oriented x 3. Blood pressure this morning 124/58 with pulse ox 93%. Kidney function continue to worsen this a.m. creatinine 2.43 bun 53 awaiting further recommendations from vascular and nephrology services. Patient denies chest pain denies nausea diarrhea. Patient denies any urinary burning or frequency On 12/11/2024 patient was seen and examined on the medical floor she is alert and oriented x 3 in no apparent distress, there is no fever or chills no headache or dizziness no chest pain no shortness of breath no cough no nausea or vomiting no abdominal pain no diarrhea no urinary symptoms, patient is scheduled for intervention with Dr. Graves today On 12/12/2024 patient is alert and oriented x 3. Patient underwent renal stent placement yesterday with Dr. Graves. Patient reports significant improvement of symptoms. Current vital signs temp 97.4, heart rate 65, respiratory rate 18, blood pressure 155/70 with a pulse ox of 94% on room air. Awaiting lab work. On 12/13/2024 patient is alert and oriented x 3. Patient is eager to be DC'd home. Patient has been cleared by vascular and nephrology services creatinine today 1.77. New meds per cardiology and nephrology service recommendations. Patient denies chest pain or shortness of breath. Patient denies nausea vomiting or diarrhea. Patient denies any urinary burning or frequency Patient Condition at Discharge: Stable Plan - Discharge Summary Discharge Rx Participant: No New Discharge Prescriptions: New Ticagrelor [Brilinta] 90 mg PO BID 30 Days #60 tab cloNIDine HCL [Catapres] 0.1 mg PO BID 60 Days #30 tab Isosorbide Mononitrate ER [Imdur] 60 mg PO DAILY 30 Days #30 tab minoxidiL [Loniten] 5 mg PO DAILY 30 Days #30 tab Sodium Bicarbonate Tab 650 mg PO TID 30 Days #90 tab hydrALAZINE HCL [Apresoline] 100 mg PO TID 30 Days #90 tab Continue Simvastatin 40 mg PO HS amLODIPine BESYLATE 10 mg PO DAILY rOPINIRole HCL [Requip] 0.25 - 0.5 mg PO HS Fluticasone/Umeclidin/Vilanter [Trelegy Ellipta 100-62.5-25] 1 puff INHALATION RT-DAILY Pantoprazole Sodium [Protonix] 40 mg PO DAILY 30 Days #30 tab Aspirin 81 mg PO DAILY 90 Days #90 tab Metoprolol Succinate (ER) [Toprol XL] 25 mg PO DAILY lisinopriL [Zestril] 20 mg PO BID Multivit/Iron Sulf/Folic Acid [Multivitamin with Iron] 1 tab PO DAILY Vitamin B Complex 1 cap PO DAILY Discontinued Isosorbide Mononitrate ER [Imdur] 30 mg PO DAILY hydrALAZINE HCL [Apresoline] 50 mg PO BID-W/MEALS Furosemide [Lasix] 20 mg PO DAILY Discharge Medication List Simvastatin 40 mg PO HS 01/30/20 [History] amLODIPine BESYLATE 10 mg PO DAILY 01/30/20 [History] Aspirin 81 mg PO DAILY 90 Days #90 tab 03/20/22 [Rx] Pantoprazole Sodium [Protonix] 40 mg PO DAILY 30 Days #30 tab 03/20/22 [Rx] Fluticasone/Umeclidin/Vilanter [Trelegy Ellipta 100-62.5-25] 1 puff INHALATION RT-DAILY 12/04/24 [History] Metoprolol Succinate (ER) [Toprol XL] 25 mg PO DAILY 12/04/24 [History] Multivit/Iron Sulf/Folic Acid [Multivitamin with Iron] 1 tab PO DAILY 12/04/24 [History] Vitamin B Complex 1 cap PO DAILY 12/04/24 [History] lisinopriL [Zestril] 20 mg PO BID 12/04/24 [History] rOPINIRole HCL [Requip] 0.25 - 0.5 mg PO HS 12/04/24 [History] Isosorbide Mononitrate ER [Imdur] 60 mg PO DAILY 30 Days #30 tab 12/13/24 [Rx] Sodium Bicarbonate Tab 650 mg PO TID 30 Days #90 tab 12/13/24 [Rx] Ticagrelor [Brilinta] 90 mg PO BID 30 Days #60 tab 12/13/24 [Rx] cloNIDine HCL [Catapres] 0.1 mg PO BID 60 Days #30 tab 12/13/24 [Rx] hydrALAZINE HCL [Apresoline] 100 mg PO TID 30 Days #90 tab 12/13/24 [Rx] minoxidiL [Loniten] 5 mg PO DAILY 30 Days #30 tab 12/13/24 [Rx] Follow up Appointment(s)/Referral(s): Edita Dominguez MD [Primary Care Provider] - 1-2 days Nirav Pace DO [STAFF PHYSICIAN] - 1 Week Activity/Diet/Wound Care/Special Instructions: Activity as tolerated Diet heart healthy Discharge Disposition: HOME SELF-CARE
--- NOTE | 2024-12-13 10:21 | P.PN ---
Subjective Patient is seen in follow-up for acute kidney injury on chronic kidney disease. Renal function better. Denies chest pain or shortness of breath. Has been voiding. Underwent right renal artery stenting December 11, 2024. Vital signs are stable. General: No acute distress. HEENT: Head exam is unremarkable. LUNGS: No audible rhonchi or wheezes. HEART: Rate and Rhythm are regular. ABDOMEN: Nontender. EXTREMITITES: No edema. Objective - Vital Signs Vital signs: Vital Signs Temp 97.9 F 12/13/24 09:19 Pulse 68 12/13/24 09:20 Resp 16 12/13/24 09:20 BP 160/54 12/13/24 09:19 Pulse Ox 94 L 12/13/24 09:19 FiO2 Intake & Output 12/12/24 12/13/24 12/13/24 18:59 06:59 18:59 Intake Total 540 180 Output Total 800 Balance -260 180 Weight 50.8 kg Intake: Oral 540 180 Output: Urine 800 Stool 0 Other: Voiding Method Toilet Toilet Toilet # Voids 2 - Labs CBC & Chem 7: 12/13/24 06:52 12/13/24 06:52 Labs: Abnormal Lab Results - Last 24 Hours (Table) 12/13/24 12/13/24 Range/Units 06:52 06:52 RBC 2.81 L (4.10-5.20) 10*6/uL Hgb 8.4 L (12.0-15.0) g/dL Hct 25.1 L (37.2-46.3) % Lymphocytes # 0.88 L (0.90-5.00) 10*3/uL Eosinophils # 0.41 H (0.04-0.35) 10*3/uL Sodium 133 L (137-145) mmol/L BUN 38 H (7-17) mg/dL Creatinine 1.77 H (0.52-1.04) mg/dL Total Protein 4.8 L (6.3-8.2) g/dL Albumin 2.8 L (3.5-5.0) g/dL Assessment and Plan Plan: Assessment: 1. Acute kidney injury secondary to hemodynamic ATN. Renal function better. Creatinine 1.77 today. UA benign. Creatinine near 1 in November 2023 but in the ra nge of 1.5-2 send March 2024. Concerning for underlying chronic kidney disease 2. Renal artery stenosis and a solitary functioning right kidney. Left kidney noted to be atrophic. Status post right renal artery stenting December 11, 2024. 3. Metabolic acidosis secondary to acute kidney injury and IV fluids. On oral bicarb. Better. 4. Hypertensive urgency. Improved. Plan: Encouraged oral intake. Avoid nephrotoxins. Hold minoxidil for systolic blood pressure less than 115. Follow-up outpatient 1 to 2 weeks postdischarge.
[2024-12-13 12:49] VITALS: BMI 20.5
--- NOTE | 2024-12-13 12:52 | P.PN ---
Subjective Progress Note Date: 12/13/24 The patient was seen and evaluated this morning which is asymptomatic. The pressure remains elevated in spite of being on maximized medical treatment of multiple blood pressure medications which she underwent yesterday and angiogram which showed intermediate to severe disease involving the right renal artery. I am going to start the patient on minoxidil. The right groin appears to be soft and nontender with no bruises. The physical examination overall is unremarkable besides soft systolic murmur at the right and left upper sternal border with clear breathing sounds bilaterally and no edema was noted in the lower extremities December 08, 2024 The patient was seen and evaluated this morning which she is asymptomatic and finally the pressure has came down after she was started on minoxidil but seems to be consistent with stage II hypertension. She is not in hypertension crisis anymore. The physical examination is remarkable for regular rhythm with a soft systolic murmur and clear breathing sounds bilaterally no edema was noted in the lower extremities 12/09/2024 Patient's kidney function is declining but the blood pressure is better controlled Creatinine is 2.34 today yesterday it was 1.57. BUN is 45. 12/10 Patient seen and examined. Blood pressure is improved at 124/58, heart rate is in the 50s and 60s, pulse ox 93% on room air. Patient is not worsening of her renal function with BUN 53 creatinine 2.43, hemoglobin is at 8.3. Discussed with Dr. Henry with recommendations to move forward with stent placement. The physical examination overall is unremarkable besides soft systolic murmur at the right and left upper sternal border with clear breathing sounds bilaterally and no edema was noted in the lower extremities 12/12 Patient seen and examined. Yesterday, patient underwent renal artery stenting on the right. Today her creatinine is much improved at 1.78. Patient did have hematoma to the right groin with spread to the right labia. Manual pressure was held as well as FemoStop was applied. This has resolved. Blood pressure running between 128/41-155/70. Heart rate is in the 50s and 60s, pulse ox 95% on room air. 12/13 Patient seen and examined. She is feeling well this morning. She continues to have pain in the groin area has large area of ecchymosis. Hematoma seems to be improved. No indication for ultrasound. Blood pressure 160/54, heart rate in the 60s, pulse ox 94% on room air. Repeat blood work reveals BUN 38 creatinine 1.77, hemoglobin 8.4. Assessment Hypertension urgency Resistant hypertension History of CAD History of AAA repair Right renal artery stenosis, 50 to 60% status post right renal stenting 12/11 Plan Continue the current medical regimen Patient is cleared for discharge from a cardiology perspective and may follow-up in the office with Dr. Espino. Nurse practitioner note has been reviewed, I agree with documented findings and plan of care. Patient was seen and examined. Objective - Vital Signs Vital signs: Vital Signs Temp 97.6 F 12/12/24 23:10 Pulse 65 12/13/24 03:40 Resp 16 12/13/24 03:40 BP 130/46 12/13/24 03:40 Pulse Ox 95 12/13/24 03:40 FiO2 Intake & Output 12/12/24 12/13/24 12/13/24 18:59 06:59 18:59 Intake Total 540 180 Output Total 800 Balance -260 180 Weight 50.8 kg Intake: Oral 540 180 Output: Urine 800 Stool 0 Other: Voiding Method Toilet Toilet # Voids 2 - Labs CBC & Chem 7: 12/13/24 06:52 12/13/24 06:52 Labs: Abnormal Lab Results - Last 24 Hours (Table) 12/12/24 12/13/24 12/13/24 Range/Units 08:30 06:52 06:52 RBC 2.81 L (4.10-5.20) 10*6/uL Hgb 8.4 L (12.0-15.0) g/dL Hct 25.1 L (37.2-46.3) % Lymphocytes # 0.88 L (0.90-5.00) 10*3/uL Eosinophils # 0.41 H (0.04-0.35) 10*3/uL Sodium 131 L 133 L (137-145) mmol/L Carbon Dioxide 13 L (22-30) mmol/L BUN 47 H 38 H (7-17) mg/dL Creatinine 1.78 H 1.77 H (0.52-1.04) mg/dL Glucose 126 H (74-99) mg/dL Total Protein 4.8 L (6.3-8.2) g/dL Albumin 2.8 L (3.5-5.0) g/dL
[2024-12-14] MEDS ORDERED: SODIUM BICARBONATE TAB 650 MG TAB PO SCH (09:00)
--- NOTE | 2024-12-17 23:08 | CDI ---
Documentation Clarification Form Date: 12/17/2024 10:55:38 PM From: Cassandra Copeland Phone: Admit Date: 12/09/2024 09:18:00 AM Patient Name: Henny Camargo Visit Number: [id number] Discharge Date: 12/13/2024 01:52:00 PM ATTENTION: The Clinical Documentation Specialists (CDI) and [facility] Coding Staff appreciate your assistance in clarifying documentation. Please respond to the clarification below the line at the bottom and electronically sign. The CDI & [facility] Coding staff will review the response and follow-up if needed. Please note: Queries are made part of the Legal Health Record. If you have any questions, please contact the author of this message via ITS. Doctor/Provider: Danie Bueno NSTEMI is documented per Procedure Note 12/06 which may lack sufficient clinical evidence/support in the medical record. Additional clarification is requested. Patient history/risk factors: 74yo F, HTN emergency, A/CKD, CAD, resistant HTN, renal artery stenosissp stenting, HTN, HLD, PVD, Hx AAA, OA, former smoker Clinical indicators: Troponin: 0.025 EKG: revealed sinusrhythmwith normalEKG Echo: Normal LV size and systolic function. Mild to moderate concentric LVH. No elevationof PApressures. MildlyenlargedLA. Mitral annular calcificationandASwithoutrestriction. MildMR. Nopericardial effusion Treatment: Selectiveright and left coronary angiogram. [facility]. Ultrasound-guided access of the right radial artery After work up and study, please which diagnosis is most appropriate? [ ] NSTEMI is a valid diagnosis as evidenced by the following: [ ] NSTEMI Type II is a valid diagnosis as evidenced by the following: [ ] NSTEMI ruled out [ ] Other, please specify [ ] Unable to determine (Template Last Revised: July 2023) [employer]
--- NOTE | 2025-01-13 20:11 | AS ---
Documentation Clarification Form Date: 01/13/2025 07:53:11 PM From: Cassandra Copeland Phone: Admit Date: 12/09/2024 09:18:00 AM Patient Name: Henny Camargo Visit Number: [id number] Discharge Date: 12/13/2024 01:52:00 PM ATTENTION: The Clinical Documentation Specialists (CDI) and [facility] Coding Staff appreciate your assistance in clarifying documentation. Please respond to the clarification below the line at the bottom and electronically sign. The CDI & [facility] Coding staff will review the response and follow-up if needed. Please note: Queries are made part of the Legal Health Record. If you have any questions, please contact the author of this message via ITS. Doctor/Provider: Danie Bueno Thank you for acknowledging the previous query, however; it lacked a response. NSTEMIis documented per Procedure Note 12/06 which may lack sufficient clinical evidence/support in the medical record. Additional clarification is requested. Patient history/risk factors: 74yo F,HTN emergency, A/CKD,CAD,resistant HTN, renal artery stenosisspstenting,HTN,HLD,PVD, HxAAA,OA,former smoker Clinical indicators: Troponin: 0.025 EKG: revealed sinusrhythmwith normalEKG Echo: Normal LV size and systolic function. Mild to moderate concentric LVH. No elevationof PApressures. MildlyenlargedLA. Mitral annular calcificationandASwithoutrestriction. MildMR. Nopericardial effusion Treatment: Selectiveright and left coronary angiogram. [facility]. US-guided access of the right radial artery After work up andstudy, please which diagnosis is most appropriate? [ ]NSTEMIis a valid diagnosis as evidenced by the following: [ ]NSTEMI Type IIis a valid diagnosis as evidenced by the following: [ ]NSTEMIruled out [ ] Other, please specify [ ] Unable to determine (Template LastRevised: July 2023) MTDD
--- NOTE | 2025-01-15 09:14 | CDI ---
Documentation Clarification Form Date: 01/13/2025 07:53:11 PM From: Cassandra Copeland Phone: Admit Date: 12/09/2024 09:18:00 AM Patient Name: Henny Camargo Visit Number: [id number] Discharge Date: 12/13/2024 01:52:00 PM ATTENTION: The Clinical Documentation Specialists (CDI) and [facility] Coding Staff appreciate your assistance in clarifying documentation. Please respond to the clarification below the line at the bottom and electronically sign. The CDI & [facility] Coding staff will review the response and follow-up if needed. Please note: Queries are made part of the Legal Health Record. If you have any questions, please contact the author of this message via ITS. Doctor/Provider: Danie Bueno Thank you for acknowledging the previous query, however; it lacked a response. NSTEMIis documented per Procedure Note 12/06 which may lack sufficient clinical evidence/support in the medical record. Additional clarification is requested. Patient history/risk factors: 74yo F,HTN emergency, A/CKD,CAD,HTN,HLD,PVD, HxAAA,OA,resistant HTN, renal artery stenosisspstenting,HTN,HLD,PVD, HxAAA,OA,former smoker Clinical indicators: Troponin: 0.025 EKG: revealed sinusrhythmwith normalEKG Echo: Normal LV size and systolic function. Mild to moderate concentric LVH. No elevationof PApressures. MildlyenlargedLA. Mitral annular calcificationandASwithoutrestriction. MildMR. Nopericardial effusion Treatment: Selectiveright and left coronary angiogram. [facility]. US-guided access of the right radial artery After work up andstudy, please which diagnosis is most appropriate? [ ]NSTEMIis a valid diagnosis as evidenced by the following: [ ]NSTEMI Type IIis a valid diagnosis as evidenced by the following: [ ]NSTEMIruled out [ ] Other, please specify [ ] Unable to determine (Template LastRevised: July 2023) MTDD
== END 2024-12-13 13:52 | disposition home or self-care (01) | DRG 252 ==
LOC: EC 23:20 → 3SCARD 12-04 01:54 → OBSVTOIN 12-09 09:18
PROVIDERS: ADMIT Internal Medicine; ATTEND Internal Medicine
PROC: B4101ZZ Fluoroscopy of Abdominal Aorta using Low Osmolar Contrast (ICD-10-PCS; 2024-12-06 15:15)
PROC: B4171ZZ Fluoroscopy of Left Renal Artery using Low Osmolar Contrast (ICD-10-PCS; 2024-12-11)
PROC: 047934Z Dilation of Right Renal Artery with Drug-eluting Intraluminal Device, Percutaneous Approach (ICD-10-PCS; principal; 2024-12-11 10:40)
DX: I16.1 Hypertensive emergency (principal); N17.0 Acute kidney failure with tubular necrosis; E87.20 Acidosis, unspecified; I12.9 Hypertensive chronic kidney disease with stage 1 through stage 4 chronic kidney disease, or unspecified chronic kidney disease; I73.9 Peripheral vascular disease, unspecified; N18.9 Chronic kidney disease, unspecified; I13.10 Hypertensive heart and chronic kidney disease without heart failure, with stage 1 through stage 4 chronic kidney disease, or unspecified chronic kidney disease; I70.1 Atherosclerosis of renal artery; E78.5 Hyperlipidemia, unspecified; M19.90 Unspecified osteoarthritis, unspecified site; I1A.0 Resistant hypertension; I25.10 Atherosclerotic heart disease of native coronary artery without angina pectoris; Z95.828 Presence of other vascular implants and grafts; Z95.820 Peripheral vascular angioplasty status with implants and grafts; Z79.82 Long term (current) use of aspirin; Z82.49 Family history of ischemic heart disease and other diseases of the circulatory system; Z87.891 Personal history of nicotine dependence; Z88.8 Allergy status to other drugs, medicaments and biological substances; Z79.899 Other long term (current) drug therapy; Z86.79 Personal history of other diseases of the circulatory system
CPT/HCPCS: 36200; 36415; 37236; 71046; 75625; 76937; 80048; 80053; 81003; 83735; 84484; 85025; 85610; 85730; 93306; 93975; 94640; 96361; 96374; 96375; 96376; 99291